=== PATIENT | male | born 1935 | race Caucasian/White ===

== ENCOUNTER → 2016-04-19 | Outpatient (CLI) | payer MEDICARE ==
[~2016-04-19] MED LIST: AMOX875T2 PO; ASPI1TAB PO; BISO5TAB5 PO; GLIM2TAB PO; IRBE75TA5 PO; KEFL500C7 PO; KETOROLAC 0.4% OS; LANTINJ4 SC; LEVA500T PO; METF1000; METF1000 PO; MULTCAP PO; NITR4TASL SL; OMEP20CA3 PO; PRAV40TA2 PO; PREDOPD OS; TYLE325T5 PO
--- NOTE | 2016-04-19 16:12 | REP ---
Clinical: Right upper extremity swelling . Technique: Brennan scale and color Doppler evaluation using linear high frequency transducer. Findings: Ultrasound examination of the right upper extremity deep venous structures including the jugular, axillary, subclavian, brachial, basilic, and cephalic veins demonstrates normal compressibility flow and wave patterns in response to respiration and augmentation. There is no evidence for deep venous thrombosis. Impression: No evidence for deep venous thrombosis. Signed by Maxwell Herrera MD 04/19/2016 04:03 P
== END ==
LOC: M RAD 13:44
PROVIDERS: ATTEND Nurse Practitioner Family
DX: M79.89 Other specified soft tissue disorders (principal); M25.531 Pain in right wrist

== ENCOUNTER → 2016-04-19 | Outpatient (REF) | payer MEDICARE | LOC: M SFHCPLAZ 12:16 | PROVIDERS: ATTEND Nurse Practitioner Family | DX: M25.531 Pain in right wrist (principal) ==

== ENCOUNTER → 2016-04-24 | Outpatient (CLI) | payer MEDICARE ==
--- NOTE | 2016-04-24 16:13 | REP ---
Clinical: Pain. Technique: AP, lateral, bilateral oblique views of the right wrist. Findings: Arthritic and degenerative changes primarily involving the first and second carpometacarpal joints with chronic subluxation at the first carpal metacarpal joint. Further degenerative changes include subchondral sclerosis and decreased radiocarpal joint space and to a lesser extent similar findings involving the carpometacarpal joints. Vascular calcifications noted. No acute fracture dislocation. Impression: Moderate to advanced degenerative changes dominant noted at the first carpal metacarpal joint Signed by Maxwell Herrera MD 04/24/2016 04:05 P
--- NOTE | 2016-04-24 16:16 | REP ---
Clinical: Pain. Technique: AP, lateral views of the right hand. Findings: Advanced osteoarthritic degenerative changes at the first and second carpometacarpal joints as well as increase sclerosis and decreased radiocarpal joint space appreciated. Moderate degenerative changes primarily involving the interphalangeal joints include marginal spurring subchondral sclerosis and decreased joint space. No acute fracture dislocation. 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
== END ==
LOC: M WUC 15:46
PROVIDERS: ATTEND Family Medicine
DX: M79.89 Other specified soft tissue disorders (principal)

== ENCOUNTER → 2016-05-01 | Outpatient (REF) | payer MEDICARE ==
[2016-05-01 14:47] LABS: BASO % 0.4 % (0.0-1.0); EOS # 0.1 K/mm3 (0.0-0.50); EOS % 1.5 % (0.0-3.0); LARGE UNSTAINED CELL # 0.1 K/mm3 (0.0-0.4); LARGE UNSTAINED CELL % 1.3 % (0.0-4.0); LYMPH % 14.4 % (24.0-44.0); MEAN CORPUSCULAR HEMOGLOBIN 26.1 pg (27.0-33.0); MEAN CORPUSCULAR HGB CONC 31.1 g/dl (32.0-36.5); MONO # 0.4 K/mm3 (0.0-0.8); MONO % 5.6 % (0.0-5.0); NEUTROPHILS # 5.1 K/mm3 (1.8-7.7); NEUTROPHILS % 76.8 % (36.0-66.0); PLATELET COUNT, AUTOMATED 269 k/mm3 (150-450); RED CELL DISTRIBUTION WIDTH 14.3 % (11.5-14.5); WHITE BLOOD COUNT 6.6 K/mm3 (4.0-10.0)
[2016-05-01 15:34] LABS: ERYTHROCYTE SEDIMENTATION RATE 37 mm/hr (0-20)
[2016-05-03 00:06] LABS: Lyme Disease IgG/IgM Antibodie <0.91 ISR (0.00-0.90); Lyme Disease IgM Ab Quantitati <0.80 index (0.00-0.79)
== END ==
LOC: M LABDRAW1 13:19
PROVIDERS: ATTEND Orthopaedic Surgery
DX: M25.531 Pain in right wrist (principal)

== ENCOUNTER → 2016-05-04 | Outpatient (CLI) | payer MEDICARE ==
[2016-05-04 18:41] LABS: MEAN CORPUSCULAR HEMOGLOBIN 27.5 pg (27.0-33.0); MEAN CORPUSCULAR HGB CONC 31.9 g/dl (32.0-36.5); MEAN CORPUSCULAR VOLUME 86.2 fl (80.0-96.0); RED CELL DISTRIBUTION WIDTH 14.5 % (11.5-14.5); WHITE BLOOD COUNT 5.3 K/mm3 (4.0-10.0)
[2016-05-04 19:08] LABS: ALBUMIN 3.6 GM/DL (3.2-5.2); ALBUMIN/GLOBULIN RATIO 1.38 (1.00-1.93); BILIRUBIN,TOTAL 0.5 MG/DL (0.2-1.0); CALCIUM LEVEL 7.5 MG/DL (8.8-10.2); CREATININE FOR GFR 1.56 MG/DL (0.70-1.30); GLOMERULAR FILTRATION RATE 46.1 (>42); POTASSIUM SERUM 5.1 MEQ/L (3.5-5.1); TOTAL PROTEIN 6.2 GM/DL (6.4-8.2)
== END ==
LOC: M WUC 09:37
PROVIDERS: ATTEND Family Medicine
DX: N18.3 Chronic kidney disease, stage 3 (moderate) (principal); E11.40 Type 2 diabetes mellitus with diabetic neuropathy, unspecified; E78.00 Pure hypercholesterolemia, unspecified

== ENCOUNTER → 2016-05-10 | Outpatient (REF) | payer MEDICARE ==
[2016-05-10 14:16] LABS: RETIC HEMOGLOBIN CONTENT CHr 28.3 PG (24-36); RETICULOCYTE % ADVIA2120 2.2 % (0.5-1.5)
[2016-05-10 14:43] LABS: FOLATE > 24.0 NG/ML (>5.4); VITAMIN B12 LEVEL 189 PG/ML (247-911)
[2016-05-10 15:19] LABS: FERRITIN 7 NG/ML (26-388); PERCENT SATURATION 9.7 % (19.7-37.4); TOTAL IRON BINDING CAPACITY 453 UG/DL (250-450)
== END ==
LOC: M SFHCPLAZ 11:36
PROVIDERS: ATTEND Family Medicine
DX: I12.9 Hypertensive chronic kidney disease with stage 1 through stage 4 chronic kidney disease, or unspecified chronic kidney disease (principal); N18.3 Chronic kidney disease, stage 3 (moderate); D63.1 Anemia in chronic kidney disease

== ENCOUNTER → 2016-05-16 | Outpatient (CLI) | payer MEDICARE ==
--- NOTE | 2016-05-16 15:05 | REP ---
URINARY TRACT SONOGRAPHY: HISTORY: Chronic kidney disease stage III. FINDINGS: Scanning at the level of the urinary bladder shows no abnormality. It is largely empty. Renal cortical echogenicity pattern is normal and contours are smooth on both sides. No hydronephrosis is seen. There are linear echogenic structures in the renal sinuses bilaterally suggesting vascular calcification. No calculus is seen. No mass lesion or cyst is observed. Right kidney measures 10.0 x 4.9 x 5.2 cm. Left renal dimensions are 8.9 x 4.3 x 4.7 cm. Left kidney is felt to be somewhat atrophic. IMPRESSION: No evidence of hydronephrosis on either side. Mild diffuse atrophy left kidney. Otherwise negative. Signed by Jamshid Francisco MD 05/16/2016 05:39 P
== END ==
LOC: M RAD 09:52
PROVIDERS: ATTEND Family Medicine
DX: N18.3 Chronic kidney disease, stage 3 (moderate) (principal)

== ENCOUNTER → 2016-05-21 | Outpatient (CLI) | payer MEDICARE ==
[2016-05-21 17:05] LABS: CALCIUM LEVEL 8.5 MG/DL (8.8-10.2); CREATININE FOR GFR 1.61 MG/DL (0.70-1.30); GLOMERULAR FILTRATION RATE 44.4 (>42); MAGNESIUM LEVEL 1.2 MG/DL (1.8-2.4)
== END ==
LOC: M WUC 11:53
PROVIDERS: ATTEND Family Medicine
DX: E83.42 Hypomagnesemia (principal)

== ENCOUNTER → 2016-05-24 | Outpatient (REF) | payer MEDICARE ==
[2016-05-24 16:06] LABS: MEAN CORPUSCULAR HEMOGLOBIN 26.4 pg (27.0-33.0); MEAN CORPUSCULAR HGB CONC 30.9 g/dl (32.0-36.5); MEAN CORPUSCULAR VOLUME 85.5 fl (80.0-96.0); RED CELL DISTRIBUTION WIDTH 14.3 % (11.5-14.5); WHITE BLOOD COUNT 7.4 K/mm3 (4.0-10.0)
== END ==
LOC: M SFHCPLAZ 11:21
PROVIDERS: ATTEND Family Medicine
DX: E53.8 Deficiency of other specified B group vitamins (principal)

== ENCOUNTER → 2016-07-01 | Outpatient (CLI) | payer MEDICARE ==
[~2016-07-01] MED LIST changes: +FERR325T3 PO
--- NOTE | 2016-07-01 17:11 | REP ---
Chest two views HISTORY: Dyspnea Comparison: 04/03/2015 The lungs are clear. The heart is normal in size. The pulmonary vasculature is normal in appearance. The bony structure is intact. IMPRESSION: No acute disease. Signed by Adrian Velez MD 07/01/2016 05:02 P
[2016-07-01 20:07] LABS: BASO % 0.7 % (0.0-1.0); EOS # 0.2 K/mm3 (0.0-0.50); EOS % 3.3 % (0.0-3.0); LARGE UNSTAINED CELL # 0.1 K/mm3 (0.0-0.4); LARGE UNSTAINED CELL % 2.2 % (0.0-4.0); LYMPH # 0.9 K/mm3 (1.5-4.5); LYMPH % 16.5 % (24.0-44.0); MEAN CORPUSCULAR HEMOGLOBIN 27.8 pg (27.0-33.0); MEAN CORPUSCULAR HGB CONC 32.2 g/dl (32.0-36.5); MEAN CORPUSCULAR VOLUME 86.5 fl (80.0-96.0); MONO # 0.3 K/mm3 (0.0-0.8); MONO % 5.9 % (0.0-5.0); NEUTROPHILS % 71.4 % (36.0-66.0); PLATELET COUNT, AUTOMATED 260 k/mm3 (150-450); RED CELL DISTRIBUTION WIDTH 14.4 % (11.5-14.5); WHITE BLOOD COUNT 5.6 K/mm3 (4.0-10.0)
[2016-07-01 20:25] LABS: ALBUMIN 3.5 GM/DL (3.2-5.2); ALBUMIN/GLOBULIN RATIO 1.21 (1.00-1.93); ALKALINE PHOSPHATASE 70 U/L (45-117); ALT/SGPT 24 U/L (12-78); ANION GAP 9 MEQ/L (8-16); AST/SGOT 21 U/L (15-37); BILIRUBIN,TOTAL 0.3 MG/DL (0.2-1.0); BLOOD UREA NITROGEN 23 MG/DL (7-18); CALCIUM LEVEL 8.3 MG/DL (8.8-10.2); CARBON DIOXIDE LEVEL 24 MEQ/L (21-32); CHLORIDE LEVEL 107 MEQ/L (98-107); CREATININE FOR GFR 1.42 MG/DL (0.70-1.30); GLOMERULAR FILTRATION RATE 51.3 (>42); GLUCOSE, FASTING 147 MG/DL (83-110); POTASSIUM SERUM 4.7 MEQ/L (3.5-5.1); SODIUM LEVEL 140 MEQ/L (136-145); TOTAL PROTEIN 6.4 GM/DL (6.4-8.2)
[2016-07-01 21:03] LABS: ERYTHROCYTE SEDIMENTATION RATE 31 mm/hr (0-20)
[2016-07-04 00:07] LABS: Lyme Disease IgG/IgM Antibodie <0.91 ISR (0.00-0.90); Lyme Disease IgM Ab Quantitati <0.80 index (0.00-0.79)
== END ==
LOC: M WUC 16:06
PROVIDERS: ATTEND Internal Medicine Rheumatology
DX: M35.9 Systemic involvement of connective tissue, unspecified (principal); Z79.899 Other long term (current) drug therapy; E55.9 Vitamin D deficiency, unspecified; D47.2 Monoclonal gammopathy

== ENCOUNTER → 2016-07-03 | Outpatient (CLI) | payer MEDICARE ==
[~2016-07-03] VITALS: Ht 177.8 cm; Wt 86.2 kg
[~2016-07-03] MED LIST changes: +LIDOCAINE 2% INJ 100 MG/5 ML SDV (FOR ANES.) As Ordered ONE; +NS 1,000 ML IV ONE; +PROPOFOL 500 MG/50 ML VIAL As Ordered ONE
--- NOTE | 2016-07-03 09:45 | ROOR ---
Patient Name: Nimesh Marmolejo Procedure Date: 07/03/2016 9:16 AM Date of : 1935 Age: 80 Room: [facility] Gender: Male Note Status: Finalized Procedure: Upper GI endoscopy + SBB Indications: Iron deficiency anemia Providers: Josesito Larose MD Referring MD: Neil Alvarez MD Requesting Provider: Medicines: Monitored Anesthesia Care Complications: No immediate complications. Procedure: Pre-Anesthesia Assessment: - The heart rate, respiratory rate, oxygen saturations, blood pressure, adequacy of pulmonary ventilation, and response to care were monitored throughout the procedure. The Endoscope was introduced through the mouth, and advanced to the second part of duodenum. The upper GI endoscopy was accomplished without difficulty. The patient tolerated the procedure well. Findings: The Z-line was regular and was found 40 cm from the incisors. No other significant abnormalities were identified in a careful examination of the stomach. The exam of the duodenum was otherwise normal. Biopsies for histology were taken with a cold forceps in the first portion of the duodenum for evaluation of celiac disease. The exam was otherwise without abnormality. Impression: - Z-line regular, 40 cm from the incisors. - The examination was otherwise normal. - Biopsies were taken with a cold forceps for evaluation of celiac disease. - The examination was otherwise normal. Recommendation: - Patient has a contact number available for emergencies. The signs and symptoms of potential delayed complications were discussed with the patient. Return to normal activities tomorrow. Written discharge instructions were provided to the patient. - High fiber diet. - Discharge patient to home. - Continue present medications. - Await pathology results. - Telephone GI clinic for pathology results in 1 week. - Check Portal Online for Path Results.([email or web address]) - Return to referring physician. - The findings and recommendations were discussed with the patient's family. Josesito Larose MD Josesito Larose MD 07/03/2016 9:44:52 AM This report has been signed electronically. Number of Addenda: 0 Note Initiated On: 07/03/2016 9:16 AM Estimated Blood Loss: Estimated blood loss: none.
--- NOTE | 2016-07-03 09:48 | ROOR ---
Patient Name: Nimesh Marmolejo Procedure Date: 07/03/2016 9:17 AM Date of : 1935 Age: 80 Room: [facility] Gender: Male Note Status: Finalized Procedure: Colonoscopy to Cecum Indications: Iron deficiency anemia Providers: Josesito Larose MD Referring MD: Neil Alvarez MD Requesting Provider: Medicines: Monitored Anesthesia Care Complications: No immediate complications. Procedure: Pre-Anesthesia Assessment: - The heart rate, respiratory rate, oxygen saturations, blood pressure, adequacy of pulmonary ventilation, and response to care were monitored throughout the procedure. The Colonoscope was introduced through the anus and advanced to the cecum, identified by appendiceal orifice and ileocecal valve. The colonoscopy was performed without difficulty. The patient tolerated the procedure well. The quality of the bowel preparation was excellent. Findings: The perianal and digital rectal examinations were normal. Non-bleeding internal hemorrhoids were found during retroflexion. The hemorrhoids were small and Grade I (internal hemorrhoids that do not prolapse). Multiple small and large-mouthed diverticula were found in the recto-sigmoid colon, sigmoid colon and descending colon. The exam was otherwise without abnormality on direct and retroflexion views. Impression: - Non-bleeding internal hemorrhoids. - Diverticulosis in the recto-sigmoid colon, in the sigmoid colon and in the descending colon. - The examination was otherwise normal on direct and retroflexion views. - No specimens collected. - The exam was otherwise normal to the cecum. Recommendation: - Patient has a contact number available for emergencies. The signs and symptoms of potential delayed complications were discussed with the patient. Return to normal activities tomorrow. Written discharge instructions were provided to the patient. - High fiber diet. - Discharge patient to home. - Continue present medications. - Repeat colonoscopy for symptoms only. - Return to referring physician. - The findings and recommendations were discussed with the patient's family. Josesito Larose MD Josesito Larose MD 07/03/2016 9:47:48 AM This report has been signed electronically. Number of Addenda: 0 Note Initiated On: 07/03/2016 9:17 AM Estimated Blood Loss: Estimated blood loss: none.
[2016-07-03 10:20] VITALS: BP 121/66
== END | disposition home or self-care (01) ==
LOC: M OPP 08:03
PROVIDERS: ATTEND Internal Medicine Gastroenterology
DX: D50.9 Iron deficiency anemia, unspecified (principal); K64.0 First degree hemorrhoids; K57.30 Diverticulosis of large intestine without perforation or abscess without bleeding; I25.10 Atherosclerotic heart disease of native coronary artery without angina pectoris; I25.2 Old myocardial infarction; I10 Essential (primary) hypertension; E78.5 Hyperlipidemia, unspecified; E11.9 Type 2 diabetes mellitus without complications; M19.90 Unspecified osteoarthritis, unspecified site; Z95.1 Presence of aortocoronary bypass graft; Z88.5 Allergy status to narcotic agent; Z88.8 Allergy status to other drugs, medicaments and biological substances; Z79.82 Long term (current) use of aspirin; Z79.84 Long term (current) use of oral hypoglycemic drugs; Z79.4 Long term (current) use of insulin

== ENCOUNTER → 2016-07-10 | Outpatient (REF) | payer MEDICARE ==
[~2016-07-10] MED LIST changes: -LIDOCAINE 2% INJ 100 MG/5 ML SDV (FOR ANES.) As Ordered ONE; -NS 1,000 ML IV ONE; -PROPOFOL 500 MG/50 ML VIAL As Ordered ONE
== END ==
LOC: M SFHCPLAZ 11:58
PROVIDERS: ATTEND Dermatology
DX: L57.0 Actinic keratosis (principal)

== ENCOUNTER → 2016-07-11 | Outpatient (CLI) | payer MEDICARE ==
[2016-07-11 14:40] LABS: MEAN CORPUSCULAR HEMOGLOBIN 27.4 pg (27.0-33.0); MEAN CORPUSCULAR HGB CONC 32.5 g/dl (32.0-36.5); MEAN CORPUSCULAR VOLUME 84.6 fl (80.0-96.0); RED CELL DISTRIBUTION WIDTH 14.6 % (11.5-14.5); RETIC HEMOGLOBIN CONTENT CHr 29.1 PG (24-36); RETICULOCYTE % ADVIA2120 2.6 % (0.5-1.5); WHITE BLOOD COUNT 5.5 K/mm3 (4.0-10.0)
[2016-07-11 15:10] LABS: ANION GAP 8 MEQ/L (8-16); BLOOD UREA NITROGEN 29 MG/DL (7-18); CALCIUM LEVEL 8.2 MG/DL (8.8-10.2); CARBON DIOXIDE LEVEL 26 MEQ/L (21-32); CHLORIDE LEVEL 106 MEQ/L (98-107); CREATININE FOR GFR 1.64 MG/DL (0.70-1.30); FERRITIN 9 NG/ML (26-388); GLOMERULAR FILTRATION RATE 43.5 (>42); GLUCOSE, FASTING 139 MG/DL (83-110); MAGNESIUM LEVEL 1.2 MG/DL (1.8-2.4); PERCENT SATURATION 18.8 % (19.7-37.4); SODIUM LEVEL 140 MEQ/L (136-145); TOTAL IRON BINDING CAPACITY 393 UG/DL (250-450); TOTAL PROTEIN 6.3 GM/DL (6.4-8.2)
[2016-07-11 15:14] LABS: VITAMIN B12 LEVEL 345 PG/ML (247-911)
[2016-07-11 15:16] LABS: POTASSIUM SERUM 5.3 MEQ/L (3.5-5.1)
[2016-07-13 00:07] LABS: FREE KAPPA LIGHT CHAINS SERUM 36.1 mg/L (3.30-19.40); FREE LAMBDA LIGHT CHAINS SERUM 23.77 mg/L (5.71-26.30); KAPPA/LAMBDA RATIO SERUM 1.52 (0.26-1.65)
[2016-07-15 13:31] LABS: ALBUMIN 3.65 GM/DL (3.29-5.55); GAMMA GLOBULIN % 10.4 % (11.1-18.8)
== END ==
LOC: M WUC 13:19
PROVIDERS: ATTEND Family Medicine
DX: D50.9 Iron deficiency anemia, unspecified (principal)

== ENCOUNTER → 2016-07-31 | Outpatient (CLI) | payer MEDICARE ==
--- NOTE | 2016-07-31 20:03 | REP ---
Left hip two views: I suspect a fracture of the left ischium, nondisplaced. This should be correlated with clinical point tenderness. There are no comparison studies. There is no fracture of the left hip or acetabulum. There is mild left hip joint space narrowing. There is surgical clips in the soft tissues of the thigh medially. Impression: Suspect a nondisplaced fracture of the left ischium. No left hip fracture. Signed by Reggie Downing MD 07/31/2016 07:55 P
== END ==
LOC: M WUC 18:37
PROVIDERS: ATTEND Physician Assistant
DX: S70.02XA Contusion of left hip, initial encounter (principal); Y92.9 Unspecified place or not applicable; Y93.9 Activity, unspecified; Y99.8 Other external cause status

== ENCOUNTER → 2016-08-05 | Outpatient (REF) | payer MEDICARE ==
[2016-08-05 14:19] LABS: REASON FOR REVIEW COMPREHENSIVE REVIEW
== END ==
LOC: M LAB REF 13:01
PROVIDERS: ATTEND Internal Medicine Medical Oncology
DX: D64.9 Anemia, unspecified (principal)

== ENCOUNTER → 2016-08-13 | Outpatient (REF) | payer MEDICARE ==
[2016-08-13 14:04] LABS: MEAN CORPUSCULAR HEMOGLOBIN 27.7 pg (27.0-33.0); MEAN CORPUSCULAR HGB CONC 31.8 g/dl (32.0-36.5); MEAN CORPUSCULAR VOLUME 87.2 fl (80.0-96.0); RED CELL DISTRIBUTION WIDTH 14.6 % (11.5-14.5); WHITE BLOOD COUNT 6.4 K/mm3 (4.0-10.0)
[2016-08-13 14:18] LABS: CALCIUM LEVEL 8.9 MG/DL (8.8-10.2); CREATININE FOR GFR 1.47 MG/DL (0.70-1.30); GLOMERULAR FILTRATION RATE 49.3 (>42)
[2016-08-13 14:37] LABS: POTASSIUM SERUM 5.2 MEQ/L (3.5-5.1)
== END ==
LOC: M LABWUC 13:27
PROVIDERS: ATTEND Family Medicine
DX: E11.40 Type 2 diabetes mellitus with diabetic neuropathy, unspecified (principal)

== ENCOUNTER → 2016-09-05 | Outpatient (REF) | payer MEDICARE ==
[~2016-09-05] MED LIST changes: +KEFL500C17 PO; -KEFL500C7 PO; +LEVA1TAB2 PO; -LEVA500T PO; -METF1000; -METF1000 PO; +METF10004; +METF10004 PO
[2016-09-05 13:11] LABS: PERCENT SATURATION 21.8 % (19.7-37.4)
== END ==
LOC: M LAB REF 12:21
PROVIDERS: ATTEND Internal Medicine Medical Oncology
DX: D64.9 Anemia, unspecified (principal)

== ENCOUNTER → 2016-09-23 | Outpatient (CLI) | payer MEDICARE ==
[2016-09-23 13:08] LABS: MEAN CORPUSCULAR HGB CONC 32.3 g/dl (32.0-36.5); MEAN CORPUSCULAR VOLUME 86.8 fl (80.0-96.0); RED CELL DISTRIBUTION WIDTH 14.7 % (11.5-14.5); RETIC HEMOGLOBIN CONTENT CHr 30.1 PG (24-36); RETICULOCYTE % 2.3 % (0.5-1.5); WHITE BLOOD COUNT 4.7 K/mm3 (4.0-10.0)
[2016-09-23 13:31] LABS: CALCIUM LEVEL 8.7 MG/DL (8.8-10.2); CREATININE FOR GFR 1.4 MG/DL (0.70-1.30); PERCENT SATURATION 15.7 % (19.7-37.4); POTASSIUM SERUM 4.9 MEQ/L (3.5-5.1)
== END ==
LOC: M WUC 09:18
PROVIDERS: ATTEND Family Medicine
DX: D50.9 Iron deficiency anemia, unspecified (principal); N18.3 Chronic kidney disease, stage 3 (moderate)

== ENCOUNTER → 2016-10-01 | Outpatient (CLI) | payer MEDICARE ==
--- NOTE | 2016-10-01 14:25 | REP ---
Right lower extremity vein duplex ultrasound: The deep veins demonstrate normal compression, normal Doppler color flow and normal Doppler waveforms with respiration augmentation at multiple levels from the popliteal vein to the common femoral vein. Impression: There is no right lower extremity deep vein thrombus. A moderately enlarged right inguinal lymph node is identified measuring up to 0.9 cm short axis. Signed by Reggie Downing MD 10/01/2016 02:16 P
== END ==
LOC: M RAD 13:34
PROVIDERS: ATTEND Family Medicine
DX: M79.89 Other specified soft tissue disorders (principal); R59.0 Localized enlarged lymph nodes

== ENCOUNTER → 2016-10-17 | Outpatient (REF) | payer MEDICARE ==
[2016-10-17 17:42] LABS: PERCENT SATURATION 17.1 % (19.7-50.0)
== END ==
LOC: M LAB REF 16:03
PROVIDERS: ATTEND Internal Medicine Medical Oncology
DX: D64.9 Anemia, unspecified (principal)

== ENCOUNTER → 2016-11-21 | Outpatient (CLI) | payer MEDICARE ==
[2016-11-21 19:11] LABS: PERCENT SATURATION 30.3 % (19.7-50.0)
[2016-11-21 20:15] LABS: BASO % 0.6 % (0.0-1.0); EOS # 0.2 K/mm3 (0.0-0.50); EOS % 3.1 % (0.0-3.0); LARGE UNSTAINED CELL # 0.1 K/mm3 (0.0-0.4); LARGE UNSTAINED CELL % 2.1 % (0.0-4.0); LYMPH # 0.9 K/mm3 (1.5-4.5); LYMPH % 16.5 % (24.0-44.0); MEAN CORPUSCULAR HEMOGLOBIN 28.2 pg (27.0-33.0); MEAN CORPUSCULAR HGB CONC 32.2 g/dl (32.0-36.5); MEAN CORPUSCULAR VOLUME 87.6 fl (80.0-96.0); MONO # 0.3 K/mm3 (0.0-0.8); MONO % 5.4 % (0.0-5.0); NEUTROPHILS % 72.3 % (36.0-66.0); PLATELET COUNT, AUTOMATED 261 k/mm3 (150-450); RED CELL DISTRIBUTION WIDTH 14.1 % (11.5-14.5); RETIC HEMOGLOBIN CONTENT CHr 28.8 PG (24-36); RETICULOCYTE ABSOLUTE ADVIA212 80 x10(9)/L (17-77); WHITE BLOOD COUNT 5.6 K/mm3 (4.0-10.0)
[2016-11-21 21:16] LABS: ERYTHROCYTE SEDIMENTATION RATE 20 mm/hr (0-20)
== END ==
LOC: M WUC 10:41
PROVIDERS: ATTEND Internal Medicine Medical Oncology
DX: D64.9 Anemia, unspecified (principal)

== ENCOUNTER → 2017-03-04 | Outpatient (CLI) | payer MEDICARE ==
[2017-03-04 11:55] LABS: BASO % 0.5 % (0.0-1.0); EOS # 0.2 10^3/uL (0.0-0.50); EOS % 2.5 % (0.0-3.0); HEMATOCRIT 35.6 % (42.0-52.0); HEMOGLOBIN 11.1 g/dl (14.0-18.0); IMMATURE GRANULOCYTE % 0.3 % (0-0); LYMPH # 0.8 10^3/uL (1.5-4.5); MEAN CORPUSCULAR HEMOGLOBIN 27.4 pg (27.0-33.0); MEAN CORPUSCULAR HGB CONC 31.2 g/dl (32.0-36.5); MEAN CORPUSCULAR VOLUME 87.9 fl (80.0-96.0); MONO # 0.5 10^3/uL (0.0-0.8); MONO % 5.8 % (0.0-5.0); NEUTROPHILS # 7.2 10^3/uL (1.8-7.7); NEUTROPHILS % 81.9 % (36.0-66.0); PLATELET COUNT, AUTOMATED 306 10^3/uL (150-450); RED BLOOD COUNT 4.05 10^6/uL (4.30-6.10); RED CELL DISTRIBUTION WIDTH 14.9 % (11.5-14.5); WHITE BLOOD COUNT 8.7 10^3/uL (4.0-10.0)
[2017-03-04 12:08] LABS: FERRITIN 19 NG/ML (26-388); IRON (FE) 85 UG/DL (65-175); TOTAL IRON BINDING CAPACITY 327 UG/DL (250-450)
[2017-03-05 10:19] LABS: ERYTHROPOIETIN 12.1 mIU/mL (2.6-18.5)
== END ==
LOC: M WUC 09:14
DX: D64.9 Anemia, unspecified (principal)
CPT/HCPCS: 83550

== ENCOUNTER → 2017-04-26 | Outpatient (CLI) | payer MEDICARE ==
[2017-04-26 10:58] LABS: HEMATOCRIT 34.1 % (42.0-52.0); HEMOGLOBIN 10.7 g/dl (14.0-18.0); MEAN CORPUSCULAR HEMOGLOBIN 27.6 pg (27.0-33.0); MEAN CORPUSCULAR HGB CONC 31.4 g/dl (32.0-36.5); MEAN CORPUSCULAR VOLUME 88.1 fl (80.0-96.0); PLATELET COUNT, AUTOMATED 246 10^3/uL (150-450); RED BLOOD COUNT 3.87 10^6/uL (4.30-6.10); RED CELL DISTRIBUTION WIDTH 14.7 % (11.5-14.5); RETIC HEMOGLOBIN EQUIVALENT 31.7 pg (24-36); RETICULOCYTE # 59.2 10^9/L (17-77); RETICULOCYTE % 1.5 % (0.5-1.5); WHITE BLOOD COUNT 5.3 10^3/uL (4.0-10.0)
[2017-04-26 11:16] LABS: ESTIMATED AVERAGE GLUCOSE 148 MG/DL (60-110); HEMOGLOBIN A1c 6.8 %
[2017-04-26 11:18] LABS: ALBUMIN 3.9 GM/DL (3.2-5.2); ALBUMIN/GLOBULIN RATIO 1.56 (1.00-1.93); ALKALINE PHOSPHATASE 62 U/L (45-117); ALT/SGPT 22 U/L (12-78); ANION GAP 7 MEQ/L (8-16); AST/SGOT 20 U/L (7-37); BILIRUBIN,TOTAL 0.5 MG/DL (0.2-1.0); BLOOD UREA NITROGEN 34 MG/DL (7-18); CALCIUM LEVEL 8.6 MG/DL (8.8-10.2); CARBON DIOXIDE LEVEL 24 MEQ/L (21-32); CHLORIDE LEVEL 111 MEQ/L (98-107); CREATININE FOR GFR 1.84 MG/DL (0.70-1.30); FERRITIN 16 NG/ML (26-388); GLUCOSE, FASTING 80 MG/DL (70-100); IRON (FE) 59 UG/DL (65-175); MAGNESIUM LEVEL 1.7 MG/DL (1.8-2.4); PERCENT SATURATION 16.3 % (19.7-50.0); SODIUM LEVEL 142 MEQ/L (136-145); TOTAL IRON BINDING CAPACITY 361 UG/DL (250-450); TOTAL PROTEIN 6.4 GM/DL (6.4-8.2)
[2017-04-26 11:19] LABS: POTASSIUM SERUM 5.9 MEQ/L (3.5-5.1)
== END ==
LOC: M WUC 08:45
DX: I25.10 Atherosclerotic heart disease of native coronary artery without angina pectoris (principal); E83.42 Hypomagnesemia; D50.9 Iron deficiency anemia, unspecified; E11.40 Type 2 diabetes mellitus with diabetic neuropathy, unspecified
CPT/HCPCS: 83550

== ENCOUNTER → 2017-07-26 | Outpatient (CLI) | payer MEDICARE ==
[2017-07-26 10:18] LABS: BASO # 0.1 10^3/uL (0.0-0.2); BASO % 0.9 % (0.0-1.0); EOS # 0.2 10^3/uL (0.0-0.50); EOS % 4.1 % (0.0-3.0); HEMATOCRIT 36.4 % (42.0-52.0); HEMOGLOBIN 11.3 g/dl (13.5-17.5); IMMATURE GRANULOCYTE % 0.2 % (0-3.0); LYMPH # 0.9 10^3/uL (1.5-4.5); LYMPH % 15.1 % (24.0-44.0); MEAN CORPUSCULAR HEMOGLOBIN 27.7 pg (27.0-33.0); MEAN CORPUSCULAR VOLUME 89.2 fl (80.0-96.0); MONO # 0.5 10^3/uL (0.0-0.8); MONO % 8.6 % (0.0-5.0); NEUTROPHILS # 4.2 10^3/uL (1.8-7.7); NEUTROPHILS % 71.1 % (36.0-66.0); PLATELET COUNT, AUTOMATED 211 10^3/uL (150-450); RED BLOOD COUNT 4.08 10^6/uL (4.30-6.10); RED CELL DISTRIBUTION WIDTH 14.5 % (11.5-14.5); RETIC HEMOGLOBIN EQUIVALENT 32.6 pg (24-36); RETICULOCYTE # 53.4 10^9/L (17-77); RETICULOCYTE % 1.3 % (0.5-1.5); WHITE BLOOD COUNT 5.8 10^3/uL (4.0-10.0)
[2017-07-26 10:32] LABS: ESTIMATED AVERAGE GLUCOSE 186 MG/DL (60-110); HEMOGLOBIN A1c 8.1 %
[2017-07-26 10:54] LABS: ANION GAP 8 MEQ/L (8-16); BLOOD UREA NITROGEN 44 MG/DL (7-18); CALCIUM LEVEL 8.7 MG/DL (8.8-10.2); CARBON DIOXIDE LEVEL 23 MEQ/L (21-32); CHLORIDE LEVEL 111 MEQ/L (98-107); CREATININE FOR GFR 1.62 MG/DL (0.70-1.30); FERRITIN 25 NG/ML (26-388); GLUCOSE, FASTING 123 MG/DL (70-100); IRON (FE) 95 UG/DL (65-175); PERCENT SATURATION 27.6 % (19.7-50.0); SODIUM LEVEL 142 MEQ/L (136-145); TOTAL IRON BINDING CAPACITY 344 UG/DL (250-450)
[2017-07-26 10:57] LABS: POTASSIUM SERUM 5.5 MEQ/L (3.5-5.1)
== END ==
LOC: M LAB 09:28
DX: E11.40 Type 2 diabetes mellitus with diabetic neuropathy, unspecified (principal); E11.22 Type 2 diabetes mellitus with diabetic chronic kidney disease; N18.3 Chronic kidney disease, stage 3 (moderate)
CPT/HCPCS: 83550

== ENCOUNTER → 2017-08-27 | Outpatient (CLI) | payer MEDICARE | LOC: M RAD 16:14 | DX: K57.30 Diverticulosis of large intestine without perforation or abscess without bleeding (principal); R35.0 Frequency of micturition; R10.9 Unspecified abdominal pain; R31.29 Other microscopic hematuria | CPT/HCPCS: 74176 ==

== ENCOUNTER → 2017-08-27 | Outpatient (REF) | payer MEDICARE ==
[2017-08-27 20:37] LABS: APPEARANCE, URINE MANUAL CLEAR (CLEAR); BILIRUBIN, URINE MANUAL NEGATIVE (NEGATIVE); BLOOD URINE MANUAL NEGATIVE (NEGATIVE); COLOR, URINE MANUAL YELLOW (YELLOW); GLUCOSE, URINE (UA) MANUAL NEGATIVE (NEGATIVE); KETONE, URINE MANUAL NEGATIVE (NEGATIVE); LEUKOCYTE ESTERASE, URINE MAN NEGATIVE (NEGATIVE); MICROSCOPIC INDICATED? MAN YES (NO); NITRITE, URINE MANUAL NEGATIVE (NEGATIVE); PROTEIN, URINE MANUAL TRACE mg/dL (NEGATIVE); UROBILINOGEN, URINE MANUAL NORMAL (NORMAL)
[2017-08-27 20:50] LABS: AMORPHOUS SEDIMENT, URINE SMALL AMOUNT (NEGATIVE); BACTERIA, URINE SMALL AMOUNT; MUCUS, URINE SMALL AMOUNT (NEGATIVE); RBC, URINE NONE SEEN /hpf (0-3); SQUAMOUS EPITHELIAL CELL URINE SMALL AMOUNT /hpf (SMALL AMT)
[2017-08-27 20:51] LABS: GRANULAR CAST, URINE 0-1 /lpf; HYALINE CAST, URINE NONE SEEN /lpf (0-1); MICROSCOPIC EXAM PERFORMED
== END ==
LOC: M SFHCADAM 15:46
DX: R35.0 Frequency of micturition (principal)
CPT/HCPCS: 81000

== ENCOUNTER → 2017-09-02 | Outpatient (CLI) | payer MEDICARE ==
[2017-09-02 12:12] LABS: BASO # 0.1 10^3/uL (0.0-0.2); BASO % 0.6 % (0.0-1.0); EOS # 0.2 10^3/uL (0.0-0.50); EOS % 2.3 % (0.0-3.0); HEMATOCRIT 36.4 % (42.0-52.0); HEMOGLOBIN 11.6 g/dl (13.5-17.5); IMMATURE GRANULOCYTE % 0.4 % (0-3.0); LYMPH # 0.9 10^3/uL (1.5-4.5); LYMPH % 10.4 % (24.0-44.0); MEAN CORPUSCULAR HEMOGLOBIN 27.9 pg (27.0-33.0); MEAN CORPUSCULAR HGB CONC 31.9 g/dl (32.0-36.5); MEAN CORPUSCULAR VOLUME 87.5 fl (80.0-96.0); MONO # 0.6 10^3/uL (0.0-0.8); MONO % 7.5 % (0.0-5.0); NEUTROPHILS # 6.4 10^3/uL (1.8-7.7); NEUTROPHILS % 78.8 % (36.0-66.0); PLATELET COUNT, AUTOMATED 279 10^3/uL (150-450); RED BLOOD COUNT 4.16 10^6/uL (4.30-6.10); RED CELL DISTRIBUTION WIDTH 14.6 % (11.5-14.5); RETIC HEMOGLOBIN EQUIVALENT 31.4 pg (24-36); RETICULOCYTE # 56.2 10^9/L (17-77); RETICULOCYTE % 1.4 % (0.5-1.5); WHITE BLOOD COUNT 8.2 10^3/uL (4.0-10.0)
[2017-09-02 12:33] LABS: FERRITIN 46 NG/ML (26-388); IRON (FE) 63 UG/DL (65-175); PERCENT SATURATION 18.6 % (19.7-50.0); TOTAL IRON BINDING CAPACITY 338 UG/DL (250-450)
[2017-09-03 09:05] LABS: ERYTHROPOIETIN 13.8 mIU/mL (2.6-18.5)
== END ==
LOC: M WUC 09:03
DX: D64.9 Anemia, unspecified (principal); M51.36 Other intervertebral disc degeneration, lumbar region
CPT/HCPCS: 83550

== ENCOUNTER → 2017-09-02 | Outpatient (CLI) | payer MEDICARE | LOC: M WUC 09:00 | DX: M51.36 Other intervertebral disc degeneration, lumbar region (principal) ==

== ENCOUNTER 2017-09-10 09:47 | Emergency (ER) | payer MEDICARE ==
[2017-09-10] MEDS ORDERED: traMADol 50 MG TAB PO (10:45)
[2017-09-10] MEDS: traMADol 50 MG TAB PO (10:49)
[2017-09-10 11:06] LABS: AMORPHOUS SEDIMENT RFX LARGE (NEGATIVE); KETONE, URINE AUTO RFX NEGATIVE (NEGATIVE); LEUKOCYTE ESTERASE UR AUTO RFX NEGATIVE (NEGATIVE); MUCUS, URINE RFX SMALL (NEGATIVE); NITRITE, URINE AUTO RFX NEGATIVE (NEGATIVE); RBC, URINE AUTO RFX 0 /HPF (0-3); SPECIFIC GRAVITY UR AUTO RFX 1.019 (1.002-1.035); SQUAM EPITHELIAL CELL UR AURFX 0 /HPF (0-6); WBC, URINE AUTO RFX 1 /HPF (0-3)
== END 2017-09-10 12:48 | disposition home or self-care (01) ==
LOC: M ED 09:47
DX: M54.5 Low back pain (principal); E11.9 Type 2 diabetes mellitus without complications; I10 Essential (primary) hypertension; E78.5 Hyperlipidemia, unspecified; I25.2 Old myocardial infarction; Z87.442 Personal history of urinary calculi; Z95.1 Presence of aortocoronary bypass graft; Z88.8 Allergy status to other drugs, medicaments and biological substances; Z88.5 Allergy status to narcotic agent; Z79.899 Other long term (current) drug therapy; Z79.4 Long term (current) use of insulin; Z79.82 Long term (current) use of aspirin
CPT/HCPCS: 71046

== ENCOUNTER 2017-09-13 06:03 | Emergency (ER) | payer MEDICARE ==
[2017-09-13] MEDS: ONDANSETRON 4MG/2ML VIAL (J2405) IV (07:43)
[2017-09-13] MEDS: NS 1,000 ML IV (07:43)
[2017-09-13] MEDS: MORPHINE 4 MG/ML 1ML VIAL/SYRINGE (J2270) IV (07:43)
[2017-09-13 07:46] LABS: BASO % 0.2 % (0.0-1.0); EOS % 0.4 % (0.0-3.0); HEMATOCRIT 35.5 % (42.0-52.0); HEMOGLOBIN 11.6 g/dl (13.5-17.5); IMMATURE GRANULOCYTE % 0.6 % (0-3.0); LYMPH # 0.4 10^3/uL (1.5-4.5); MEAN CORPUSCULAR HEMOGLOBIN 28.1 pg (27.0-33.0); MEAN CORPUSCULAR HGB CONC 32.7 g/dl (32.0-36.5); MONO # 0.9 10^3/uL (0.0-0.8); MONO % 8.9 % (0.0-5.0); NEUTROPHILS # 8.8 10^3/uL (1.8-7.7); NEUTROPHILS % 85.9 % (36.0-66.0); PLATELET COUNT, AUTOMATED 272 10^3/uL (150-450); RED BLOOD COUNT 4.13 10^6/uL (4.30-6.10); WHITE BLOOD COUNT 10.2 10^3/uL (4.0-10.0)
[2017-09-13 07:52] LABS: AMORPHOUS SEDIMENT RFX MODERATE (NEGATIVE); KETONE, URINE AUTO RFX NEGATIVE (NEGATIVE); LEUKOCYTE ESTERASE UR AUTO RFX NEGATIVE (NEGATIVE); MUCUS, URINE RFX SMALL (NEGATIVE); NITRITE, URINE AUTO RFX NEGATIVE (NEGATIVE); RBC, URINE AUTO RFX 6 /HPF (0-3); SPECIFIC GRAVITY UR AUTO RFX 1.012 (1.002-1.035); SQUAM EPITHELIAL CELL UR AURFX 0 /HPF (0-6); WBC, URINE AUTO RFX 3 /HPF (0-3)
[2017-09-13 08:15] LABS: LACTIC ACID SEPSIS PROTOCOL 1.7 MMOL/L (0.4-2.0)
[2017-09-13 08:52] LABS: ALBUMIN 2.6 GM/DL (3.2-5.2); ALBUMIN/GLOBULIN RATIO 0.72 (1.00-1.93); ALKALINE PHOSPHATASE 152 U/L (45-117); ALT/SGPT 90 U/L (12-78); ANION GAP 11 MEQ/L (8-16); AST/SGOT 88 U/L (7-37); BILIRUBIN,DIRECT 0.2 MG/DL (0.0-0.2); BILIRUBIN,TOTAL 0.5 MG/DL (0.2-1.0); BLOOD UREA NITROGEN 30 MG/DL (7-18); CALCIUM LEVEL 8.2 MG/DL (8.8-10.2); CARBON DIOXIDE LEVEL 23 MEQ/L (21-32); CHLORIDE LEVEL 101 MEQ/L (98-107); CREATININE FOR GFR 1.67 MG/DL (0.70-1.30); GLOMERULAR FILTRATION RATE 42.4 (>35); GLUCOSE, FASTING 190 MG/DL (70-100); LIPASE 96 U/L (73-393); POTASSIUM SERUM 4.4 MEQ/L (3.5-5.1); SODIUM LEVEL 135 MEQ/L (136-145); TOTAL PROTEIN 6.2 GM/DL (6.4-8.2)
[2017-09-13] MEDS: metroNIDAZOLE (FLAGYL) 500 MG TAB PO (10:00)
[2017-09-13] MEDS: CIPROFLOXACIN 500 MG TAB PO (10:06)
== END 2017-09-13 10:30 | disposition home or self-care (01) ==
LOC: M ED 06:03
DX: K57.32 Diverticulitis of large intestine without perforation or abscess without bleeding (principal); I25.10 Atherosclerotic heart disease of native coronary artery without angina pectoris; I13.10 Hypertensive heart and chronic kidney disease without heart failure, with stage 1 through stage 4 chronic kidney disease, or unspecified chronic kidney disease; I25.2 Old myocardial infarction; E11.40 Type 2 diabetes mellitus with diabetic neuropathy, unspecified; E11.22 Type 2 diabetes mellitus with diabetic chronic kidney disease; N18.9 Chronic kidney disease, unspecified; E78.5 Hyperlipidemia, unspecified; D50.9 Iron deficiency anemia, unspecified; E53.8 Deficiency of other specified B group vitamins; K29.80 Duodenitis without bleeding; Z79.899 Other long term (current) drug therapy; Z79.82 Long term (current) use of aspirin; Z79.4 Long term (current) use of insulin; Z95.5 Presence of coronary angioplasty implant and graft; Z87.442 Personal history of urinary calculi; Z88.8 Allergy status to other drugs, medicaments and biological substances; Z88.5 Allergy status to narcotic agent

== ENCOUNTER 2017-09-15 09:38 | Inpatient (IN) | payer MEDICARE ==
[2017-09-15 10:08] LABS: BASO # 0.1 10^3/uL (0.0-0.2); BASO % 0.5 % (0.0-1.0); EOS # 0.1 10^3/uL (0.0-0.50); EOS % 0.8 % (0.0-3.0); HEMATOCRIT 36.9 % (42.0-52.0); HEMOGLOBIN 12.1 g/dl (13.5-17.5); IMMATURE GRANULOCYTE % 0.5 % (0-3.0); LYMPH # 0.6 10^3/uL (1.5-4.5); LYMPH % 5.8 % (24.0-44.0); MEAN CORPUSCULAR HEMOGLOBIN 27.4 pg (27.0-33.0); MEAN CORPUSCULAR HGB CONC 32.8 g/dl (32.0-36.5); MEAN CORPUSCULAR VOLUME 83.5 fl (80.0-96.0); MONO # 0.7 10^3/uL (0.0-0.8); MONO % 6.8 % (0.0-5.0); NEUTROPHILS # 9.1 10^3/uL (1.8-7.7); NEUTROPHILS % 85.6 % (36.0-66.0); PLATELET COUNT, AUTOMATED 342 10^3/uL (150-450); RED BLOOD COUNT 4.42 10^6/uL (4.30-6.10); RED CELL DISTRIBUTION WIDTH 14.1 % (11.5-14.5); WHITE BLOOD COUNT 10.6 10^3/uL (4.0-10.0)
[2017-09-15] MEDS: MORPHINE 4 MG/ML 1ML VIAL/SYRINGE (J2270) IV (10:35)
[2017-09-15 10:37] LABS: ALBUMIN 2.9 GM/DL (3.2-5.2); ALBUMIN/GLOBULIN RATIO 0.74 (1.00-1.93); ALKALINE PHOSPHATASE 146 U/L (45-117); ALT/SGPT 80 U/L (12-78); ANION GAP 14 MEQ/L (8-16); AST/SGOT 59 U/L (7-37); BILIRUBIN,DIRECT 0.1 MG/DL (0.0-0.2); BILIRUBIN,TOTAL 0.4 MG/DL (0.2-1.0); BLOOD UREA NITROGEN 26 MG/DL (7-18); CARBON DIOXIDE LEVEL 22 MEQ/L (21-32); CHLORIDE LEVEL 103 MEQ/L (98-107); GLOMERULAR FILTRATION RATE 38.8 (>35); GLUCOSE, FASTING 168 MG/DL (70-100); LIPASE 115 U/L (73-393); POTASSIUM SERUM 4.7 MEQ/L (3.5-5.1); SODIUM LEVEL 139 MEQ/L (136-145); TOTAL PROTEIN 6.8 GM/DL (6.4-8.2)
[2017-09-15] MEDS: NS 1,000 ML IV ×3 (11:17→20:32)
[2017-09-15] MEDS: CIPROFLOXACIN 400 MG in APPROPRIATE DILUENT 1 EA IV ×2 (11:30→22:16)
[2017-09-15] MEDS: metroNIDAZOLE 500 MG in APPROPRIATE DILUENT 1 EA IV ×2 (11:30→20:32)
[2017-09-15] MEDS ORDERED: GLUCAGON FOR INJ 1 MG VIAL (J1610) SC (12:45)
[2017-09-15] MEDS ORDERED: DEXTROSE 50% 50 ML SYRINGE IV (12:45)
[2017-09-15] MEDS ORDERED: GLUCOSE 4 GM CHEW TABLET PO (12:45)
[2017-09-15] MEDS: MIRALAX *UNIT DOSE* 17GM PACKET PO (13:37)
[2017-09-15] MEDS ORDERED: NITROGLYCERIN 0.4 MG SUBL TABLET SL (14:15)
[2017-09-15 14:45] LABS: BEDSIDE GLUCOSE 219 MG/DL (83-110)
[2017-09-15] MEDS: OMEPRAZOLE 20 MG CAP PO (15:08)
[2017-09-15] MEDS: CYANOCOBALAMIN 500 MCG TAB PO (15:08)
[2017-09-15] MEDS: FERROUS SULFATE 325MG TAB PO ×2 (15:08→21:13)
[2017-09-15] MEDS: HEPARIN SOD (PORCINE) 5000 UNITS/ML VIAL SC ×2 (15:08→21:12)
[2017-09-15] MEDS: MAGNESIUM OXIDE 400 MG TAB (MAG-OX) PO ×2 (15:08→21:13)
[2017-09-15] MEDS: HumaLOG INSULIN (NovoLOG) PER UNIT SC ×3 (15:18→20:45)
[2017-09-15 15:57] LABS: ERYTHROCYTE SEDIMENTATION RATE 82 mm/hr (0-20)
[2017-09-15 16:52] LABS: BEDSIDE GLUCOSE 121 MG/DL (83-110)
[2017-09-15] MEDS: SENNA 8.6 MG TAB (SENOKOT) PO (17:09)
[2017-09-15 20:41] LABS: BEDSIDE GLUCOSE 65 MG/DL (83-110)
[2017-09-15] MEDS: PERCOCET 5MG/325MG TAB PO (20:44)
[2017-09-15] MEDS: PRAVASTATIN 20 MG TAB PO (21:13)
[2017-09-15] MEDS: BISOPROLOL FUMARATE 5 MG TAB PO (21:16)
[2017-09-15 22:01] LABS: AMORPHOUS SEDIMENT SMALL (NEGATIVE); APPEARANCE, URINE CLOUDY (CLEAR); BACTERIA, URINE AUTO NEGATIVE (NEGATIVE); BILIRUBIN, URINE AUTO NEGATIVE (NEGATIVE); BLOOD, URINE BLOOD 1+ (NEGATIVE); COLOR, URINE YELLOW (YELLOW); GLUCOSE, URINE (UA) AUTO NEGATIVE (NEGATIVE); KETONE, URINE AUTO TRACE mg/dL (NEGATIVE); LEUKOCYTE ESTERASE, URINE AUTO TRACE (NEGATIVE); MUCUS, URINE SMALL (NEGATIVE); NITRITE, URINE AUTO NEGATIVE (NEGATIVE); PROTEIN, URINE AUTO 1+ mg/dL (NEGATIVE); RBC, URINE AUTO 1 /HPF (0-3); SPECIFIC GRAVITY URINE AUTO 1.014 (1.002-1.035); SQUAMOUS EPITHELIAL CELL UR AU 0 /HPF (0-6); UROBILINOGEN, URINE AUTO 0.2 mg/dL (0.0-2.0); WBC, URINE AUTO 2 /HPF (0-3)
[2017-09-15] MEDS: D5W/0.45% SODIUM CHLORIDE 1,000 ML IV (22:15)
[2017-09-16 02:31] LABS: BEDSIDE GLUCOSE 185 MG/DL (83-110)
[2017-09-16] MEDS: metroNIDAZOLE 500 MG in APPROPRIATE DILUENT 1 EA IV ×3 (04:19→20:20)
[2017-09-16] MEDS: PERCOCET 5MG/325MG TAB PO ×3 (04:37→21:20)
[2017-09-16] MEDS: HEPARIN SOD (PORCINE) 5000 UNITS/ML VIAL SC ×3 (06:50→21:18)
[2017-09-16 07:27] LABS: BASO % 0.3 % (0.0-1.0); EOS # 0.1 10^3/uL (0.0-0.50); EOS % 1.1 % (0.0-3.0); HEMATOCRIT 30.6 % (42.0-52.0); HEMOGLOBIN 10.2 g/dl (13.5-17.5); IMMATURE GRANULOCYTE % 0.3 % (0-3.0); LYMPH # 0.7 10^3/uL (1.5-4.5); LYMPH % 7.5 % (24.0-44.0); MEAN CORPUSCULAR HEMOGLOBIN 27.8 pg (27.0-33.0); MEAN CORPUSCULAR HGB CONC 33.3 g/dl (32.0-36.5); MEAN CORPUSCULAR VOLUME 83.4 fl (80.0-96.0); MONO # 0.8 10^3/uL (0.0-0.8); MONO % 9.2 % (0.0-5.0); NEUTROPHILS # 7.4 10^3/uL (1.8-7.7); NEUTROPHILS % 81.6 % (36.0-66.0); PLATELET COUNT, AUTOMATED 272 10^3/uL (150-450); RED BLOOD COUNT 3.67 10^6/uL (4.30-6.10); RED CELL DISTRIBUTION WIDTH 14.3 % (11.5-14.5)
[2017-09-16 07:50] LABS: ALBUMIN 2.2 GM/DL (3.2-5.2); ALBUMIN/GLOBULIN RATIO 0.56 (1.00-1.93); ALKALINE PHOSPHATASE 105 U/L (45-117); ALT/SGPT 53 U/L (12-78); ANION GAP 9 MEQ/L (8-16); AST/SGOT 37 U/L (7-37); BILIRUBIN,TOTAL 0.4 MG/DL (0.2-1.0); BLOOD UREA NITROGEN 22 MG/DL (7-18); CALCIUM LEVEL 8.3 MG/DL (8.8-10.2); CARBON DIOXIDE LEVEL 23 MEQ/L (21-32); CHLORIDE LEVEL 105 MEQ/L (98-107); CREATININE FOR GFR 1.47 MG/DL (0.70-1.30); GLOMERULAR FILTRATION RATE 49.1 (>35); GLUCOSE, FASTING 202 MG/DL (70-100); POTASSIUM SERUM 4.4 MEQ/L (3.5-5.1); SODIUM LEVEL 137 MEQ/L (136-145); TOTAL PROTEIN 6.1 GM/DL (6.4-8.2)
[2017-09-16] MEDS: HumaLOG INSULIN (NovoLOG) PER UNIT SC ×4 (07:59→21:18)
[2017-09-16 08:01] LABS: ERYTHROCYTE SEDIMENTATION RATE 75 mm/hr (0-20)
[2017-09-16] MEDS: MAGNESIUM OXIDE 400 MG TAB (MAG-OX) PO ×2 (09:26→21:19)
[2017-09-16] MEDS: MIRALAX *UNIT DOSE* 17GM PACKET PO (09:26)
[2017-09-16] MEDS: OMEPRAZOLE 20 MG CAP PO (09:27)
[2017-09-16] MEDS: D5W/0.45% SODIUM CHLORIDE 1,000 ML IV (10:50)
[2017-09-16] MEDS: CIPROFLOXACIN 400 MG in APPROPRIATE DILUENT 1 EA IV ×2 (10:50→22:19)
[2017-09-16 12:03] LABS: BEDSIDE GLUCOSE 324 MG/DL (83-110)
[2017-09-16] MEDS: CYANOCOBALAMIN 500 MCG TAB PO (12:17)
[2017-09-16] MEDS: SENOKOT S TAB PO (14:46)
[2017-09-16 17:58] LABS: BEDSIDE GLUCOSE 223 MG/DL (83-110)
[2017-09-16] MEDS ORDERED: SLF 3 ML SYR IV (19:45)
[2017-09-16] MEDS: SLF 3 ML SYR IV (20:21)
[2017-09-16 20:56] LABS: BEDSIDE GLUCOSE 269 MG/DL (83-110)
[2017-09-16] MEDS: PRAVASTATIN 20 MG TAB PO (21:19)
[2017-09-16] MEDS: BISOPROLOL FUMARATE 5 MG TAB PO (21:20)
[2017-09-17] MEDS: PERCOCET 5MG/325MG TAB PO ×3 (04:53→18:20)
[2017-09-17] MEDS: metroNIDAZOLE 500 MG in APPROPRIATE DILUENT 1 EA IV ×2 (04:53→12:38)
[2017-09-17] MEDS: SLF 3 ML SYR IV ×2 (06:22→13:45)
[2017-09-17] MEDS: HEPARIN SOD (PORCINE) 5000 UNITS/ML VIAL SC ×3 (06:22→20:48)
[2017-09-17 07:15] LABS: HEMATOCRIT 30.7 % (42.0-52.0); HEMOGLOBIN 9.9 g/dl (13.5-17.5); MEAN CORPUSCULAR HEMOGLOBIN 27.7 pg (27.0-33.0); MEAN CORPUSCULAR HGB CONC 32.2 g/dl (32.0-36.5); PLATELET COUNT, AUTOMATED 292 10^3/uL (150-450); RED BLOOD COUNT 3.57 10^6/uL (4.30-6.10); RED CELL DISTRIBUTION WIDTH 14.1 % (11.5-14.5); WHITE BLOOD COUNT 10.4 10^3/uL (4.0-10.0)
[2017-09-17 07:21] LABS: MAGNESIUM LEVEL 1.3 MG/DL (1.8-2.4)
[2017-09-17] MEDS: HumaLOG INSULIN (NovoLOG) PER UNIT SC ×4 (07:30→21:19)
[2017-09-17 07:53] LABS: BEDSIDE GLUCOSE 206 MG/DL (83-110)
[2017-09-17] MEDS: OMEPRAZOLE 20 MG CAP PO (08:02)
[2017-09-17] MEDS: MIRALAX *UNIT DOSE* 17GM PACKET PO (08:02)
[2017-09-17] MEDS: MAGNESIUM OXIDE 400 MG TAB (MAG-OX) PO ×2 (08:02→20:46)
[2017-09-17] MEDS: CYANOCOBALAMIN 500 MCG TAB PO (08:02)
[2017-09-17] MEDS: MAG SULF 1GM/100ML (MAG RUN) 1 GM in APPROPRIATE DILUENT 1 EA IV (09:03)
[2017-09-17 09:32] LABS: ALBUMIN 2.2 GM/DL (3.2-5.2); ALBUMIN/GLOBULIN RATIO 0.58 (1.00-1.93); ALKALINE PHOSPHATASE 98 U/L (45-117); ALT/SGPT 45 U/L (12-78); ANION GAP 8 MEQ/L (8-16); AST/SGOT 27 U/L (7-37); BILIRUBIN,TOTAL 0.4 MG/DL (0.2-1.0); BLOOD UREA NITROGEN 15 MG/DL (7-18); CALCIUM LEVEL 8.3 MG/DL (8.8-10.2); CARBON DIOXIDE LEVEL 28 MEQ/L (21-32); CHLORIDE LEVEL 100 MEQ/L (98-107); CREATININE FOR GFR 1.36 MG/DL (0.70-1.30); GLOMERULAR FILTRATION RATE 53.7 (>35); GLUCOSE, FASTING 196 MG/DL (70-100); POTASSIUM SERUM 4.3 MEQ/L (3.5-5.1); SODIUM LEVEL 136 MEQ/L (136-145)
[2017-09-17] MEDS: CIPROFLOXACIN 400 MG in APPROPRIATE DILUENT 1 EA IV (11:08)
[2017-09-17 11:25] LABS: BEDSIDE GLUCOSE 294 MG/DL (83-110)
[2017-09-17] MEDS: MORPHINE 4 MG/ML 1ML VIAL/SYRINGE (J2270) IV (12:44)
[2017-09-17 16:58] LABS: BEDSIDE GLUCOSE 174 MG/DL (83-110)
[2017-09-17] MEDS: PIPERACILLIN/TAZOBACTAM SOD 3.375 GM in D5W MINI-BAG PLUS 50 ML IV (18:01)
[2017-09-17] MEDS: SENOKOT S TAB PO (18:19)
[2017-09-17] MEDS: PRAVASTATIN 20 MG TAB PO (20:46)
[2017-09-17] MEDS: BISOPROLOL FUMARATE 5 MG TAB PO (20:47)
[2017-09-17 21:15] LABS: BEDSIDE GLUCOSE 268 MG/DL (83-110)
[2017-09-18] MEDS: PIPERACILLIN/TAZOBACTAM SOD 3.375 GM in D5W MINI-BAG PLUS 50 ML IV ×4 (00:16→17:46)
[2017-09-18] MEDS: SLF 3 ML SYR IV ×4 (00:16→22:00)
[2017-09-18] MEDS: PERCOCET 5MG/325MG TAB PO (06:06)
[2017-09-18] MEDS: HEPARIN SOD (PORCINE) 5000 UNITS/ML VIAL SC ×3 (06:12→20:34)
[2017-09-18 06:37] LABS: BASO % 0.2 % (0.0-1.0); EOS # 0.1 10^3/uL (0.0-0.50); EOS % 1.3 % (0.0-3.0); HEMATOCRIT 30.5 % (42.0-52.0); HEMOGLOBIN 10.2 g/dl (13.5-17.5); IMMATURE GRANULOCYTE % 0.6 % (0-3.0); LYMPH # 0.6 10^3/uL (1.5-4.5); LYMPH % 5.7 % (24.0-44.0); MEAN CORPUSCULAR HEMOGLOBIN 27.9 pg (27.0-33.0); MEAN CORPUSCULAR HGB CONC 33.4 g/dl (32.0-36.5); MEAN CORPUSCULAR VOLUME 83.6 fl (80.0-96.0); MONO # 0.8 10^3/uL (0.0-0.8); NEUTROPHILS # 8.8 10^3/uL (1.8-7.7); NEUTROPHILS % 84.2 % (36.0-66.0); PLATELET COUNT, AUTOMATED 357 10^3/uL (150-450); RED BLOOD COUNT 3.65 10^6/uL (4.30-6.10); RED CELL DISTRIBUTION WIDTH 14.1 % (11.5-14.5); WHITE BLOOD COUNT 10.4 10^3/uL (4.0-10.0)
[2017-09-18 06:54] LABS: ALBUMIN 2.3 GM/DL (3.2-5.2); ALBUMIN/GLOBULIN RATIO 0.58 (1.00-1.93); ALKALINE PHOSPHATASE 101 U/L (45-117); ALT/SGPT 42 U/L (12-78); ANION GAP 9 MEQ/L (8-16); AST/SGOT 27 U/L (7-37); BILIRUBIN,TOTAL 0.4 MG/DL (0.2-1.0); BLOOD UREA NITROGEN 15 MG/DL (7-18); CALCIUM LEVEL 8.4 MG/DL (8.8-10.2); CARBON DIOXIDE LEVEL 26 MEQ/L (21-32); CHLORIDE LEVEL 99 MEQ/L (98-107); CREATININE FOR GFR 1.54 MG/DL (0.70-1.30); GLOMERULAR FILTRATION RATE 46.5 (>35); GLUCOSE, FASTING 234 MG/DL (70-100); MAGNESIUM LEVEL 1.7 MG/DL (1.8-2.4); POTASSIUM SERUM 4.4 MEQ/L (3.5-5.1); SODIUM LEVEL 134 MEQ/L (136-145); TOTAL PROTEIN 6.3 GM/DL (6.4-8.2)
[2017-09-18 07:49] LABS: BEDSIDE GLUCOSE 239 MG/DL (83-110)
[2017-09-18] MEDS: HumaLOG INSULIN (NovoLOG) PER UNIT SC ×4 (07:56→21:01)
[2017-09-18] MEDS: MIRALAX *UNIT DOSE* 17GM PACKET PO ×2 (08:57→21:00)
[2017-09-18] MEDS: CYANOCOBALAMIN 500 MCG TAB PO (08:58)
[2017-09-18] MEDS: MAGNESIUM OXIDE 400 MG TAB (MAG-OX) PO ×2 (08:58→20:36)
[2017-09-18] MEDS: OMEPRAZOLE 20 MG CAP PO (08:58)
[2017-09-18] MEDS: ACETAMINOPHEN TAB 650MG DOSE (2X325MG) PO (10:27)
[2017-09-18] MEDS: NS 1,000 ML IV ×2 (11:49→21:00)
[2017-09-18 11:57] LABS: BEDSIDE GLUCOSE 279 MG/DL (83-110)
[2017-09-18] MEDS: SENOKOT S TAB PO (15:00)
[2017-09-18 17:38] LABS: BEDSIDE GLUCOSE 162 MG/DL (83-110)
[2017-09-18] MEDS: PRAVASTATIN 20 MG TAB PO (20:34)
[2017-09-18 20:36] LABS: BEDSIDE GLUCOSE 332 MG/DL (83-110)
[2017-09-18] MEDS: BISOPROLOL FUMARATE 5 MG TAB PO (20:36)
[2017-09-18] MEDS: MAGNESIUM CITRATE 300 ML BTL PO (20:59)
[2017-09-19] MEDS: PIPERACILLIN/TAZOBACTAM SOD 3.375 GM in D5W MINI-BAG PLUS 50 ML IV ×4 (00:15→17:51)
[2017-09-19] MEDS: ACETAMINOPHEN TAB 650MG DOSE (2X325MG) PO ×3 (04:49→19:15)
[2017-09-19] MEDS: HEPARIN SOD (PORCINE) 5000 UNITS/ML VIAL SC ×3 (06:00→21:28)
[2017-09-19] MEDS: SLF 3 ML SYR IV ×3 (06:25→21:30)
[2017-09-19 07:02] LABS: BASO % 0.3 % (0.0-1.0); EOS # 0.1 10^3/uL (0.0-0.50); EOS % 1.3 % (0.0-3.0); HEMATOCRIT 29.2 % (42.0-52.0); HEMOGLOBIN 9.6 g/dl (13.5-17.5); IMMATURE GRANULOCYTE % 0.5 % (0-3.0); LYMPH # 0.6 10^3/uL (1.5-4.5); MEAN CORPUSCULAR HEMOGLOBIN 28.1 pg (27.0-33.0); MEAN CORPUSCULAR HGB CONC 32.9 g/dl (32.0-36.5); MEAN CORPUSCULAR VOLUME 85.4 fl (80.0-96.0); MONO # 0.8 10^3/uL (0.0-0.8); MONO % 8.5 % (0.0-5.0); NEUTROPHILS # 8.3 10^3/uL (1.8-7.7); NEUTROPHILS % 83.4 % (36.0-66.0); PLATELET COUNT, AUTOMATED 332 10^3/uL (150-450); RED BLOOD COUNT 3.42 10^6/uL (4.30-6.10); RED CELL DISTRIBUTION WIDTH 14.2 % (11.5-14.5); WHITE BLOOD COUNT 9.9 10^3/uL (4.0-10.0)
[2017-09-19 07:20] LABS: ALBUMIN/GLOBULIN RATIO 0.56 (1.00-1.93); ALKALINE PHOSPHATASE 81 U/L (45-117); ALT/SGPT 36 U/L (12-78); ANION GAP 6 MEQ/L (8-16); AST/SGOT 30 U/L (7-37); BILIRUBIN,TOTAL 0.3 MG/DL (0.2-1.0); BLOOD UREA NITROGEN 15 MG/DL (7-18); CALCIUM LEVEL 7.9 MG/DL (8.8-10.2); CARBON DIOXIDE LEVEL 28 MEQ/L (21-32); CHLORIDE LEVEL 102 MEQ/L (98-107); CREATININE FOR GFR 1.41 MG/DL (0.70-1.30); GLOMERULAR FILTRATION RATE 51.5 (>35); GLUCOSE, FASTING 193 MG/DL (70-100); MAGNESIUM LEVEL 1.8 MG/DL (1.8-2.4); POTASSIUM SERUM 4.2 MEQ/L (3.5-5.1); SODIUM LEVEL 136 MEQ/L (136-145); TOTAL PROTEIN 5.6 GM/DL (6.4-8.2)
[2017-09-19] MEDS: NS 1,000 ML IV ×2 (07:41→21:30)
[2017-09-19] MEDS: HumaLOG INSULIN (NovoLOG) PER UNIT SC ×4 (07:41→21:00)
[2017-09-19] MEDS: MIRALAX *UNIT DOSE* 17GM PACKET PO (07:42)
[2017-09-19] MEDS: MAGNESIUM OXIDE 400 MG TAB (MAG-OX) PO ×2 (08:30→21:29)
[2017-09-19] MEDS: OMEPRAZOLE 20 MG CAP PO (08:31)
[2017-09-19] MEDS: CYANOCOBALAMIN 500 MCG TAB PO (08:31)
[2017-09-19 12:04] LABS: BEDSIDE GLUCOSE 231 MG/DL (83-110)
[2017-09-19 17:11] LABS: BEDSIDE GLUCOSE 202 MG/DL (83-110)
[2017-09-19] MEDS: BISOPROLOL FUMARATE 5 MG TAB PO (21:29)
[2017-09-19] MEDS: PRAVASTATIN 20 MG TAB PO (21:29)
[2017-09-19 21:48] LABS: BEDSIDE GLUCOSE 231 MG/DL (83-110)
[2017-09-20] MEDS: PIPERACILLIN/TAZOBACTAM SOD 3.375 GM in D5W MINI-BAG PLUS 50 ML IV ×3 (00:10→12:44)
[2017-09-20] MEDS: ACETAMINOPHEN TAB 650MG DOSE (2X325MG) PO ×4 (02:34→21:18)
[2017-09-20] MEDS: HEPARIN SOD (PORCINE) 5000 UNITS/ML VIAL SC ×3 (05:35→21:18)
[2017-09-20] MEDS: SLF 3 ML SYR IV ×3 (05:35→20:31)
[2017-09-20 06:58] LABS: HEMOGLOBIN 9.7 g/dl (13.5-17.5); MEAN CORPUSCULAR HEMOGLOBIN 27.6 pg (27.0-33.0); MEAN CORPUSCULAR HGB CONC 32.3 g/dl (32.0-36.5); MEAN CORPUSCULAR VOLUME 85.5 fl (80.0-96.0); PLATELET COUNT, AUTOMATED 383 10^3/uL (150-450); RED BLOOD COUNT 3.51 10^6/uL (4.30-6.10); RED CELL DISTRIBUTION WIDTH 14.3 % (11.5-14.5); WHITE BLOOD COUNT 9.8 10^3/uL (4.0-10.0)
[2017-09-20 07:19] LABS: ALBUMIN/GLOBULIN RATIO 0.65 (1.00-1.93); ALKALINE PHOSPHATASE 84 U/L (45-117); ALT/SGPT 40 U/L (12-78); ANION GAP 8 MEQ/L (8-16); AST/SGOT 40 U/L (7-37); BILIRUBIN,TOTAL 0.3 MG/DL (0.2-1.0); BLOOD UREA NITROGEN 17 MG/DL (7-18); CALCIUM LEVEL 7.7 MG/DL (8.8-10.2); CARBON DIOXIDE LEVEL 30 MEQ/L (21-32); CHLORIDE LEVEL 102 MEQ/L (98-107); GLOMERULAR FILTRATION RATE 51.9 (>35); GLUCOSE, FASTING 191 MG/DL (70-100); POTASSIUM SERUM 4.3 MEQ/L (3.5-5.1); SODIUM LEVEL 140 MEQ/L (136-145); TOTAL PROTEIN 5.1 GM/DL (6.4-8.2)
[2017-09-20] MEDS: HumaLOG INSULIN (NovoLOG) PER UNIT SC ×4 (08:35→20:29)
[2017-09-20] MEDS: OMEPRAZOLE 20 MG CAP PO (08:35)
[2017-09-20] MEDS: NS 1,000 ML IV ×2 (08:35→23:56)
[2017-09-20] MEDS: MAGNESIUM OXIDE 400 MG TAB (MAG-OX) PO ×2 (08:36→20:30)
[2017-09-20] MEDS: CYANOCOBALAMIN 500 MCG TAB PO (08:36)
[2017-09-20 11:30] LABS: BEDSIDE GLUCOSE 298 MG/DL (83-110)
[2017-09-20 17:21] LABS: BEDSIDE GLUCOSE 142 MG/DL (83-110)
[2017-09-20] MEDS: AUGMENTIN 875 MG TAB PO (20:29)
[2017-09-20] MEDS: BISOPROLOL FUMARATE 5 MG TAB PO (20:30)
[2017-09-20] MEDS: PRAVASTATIN 20 MG TAB PO (20:31)
[2017-09-20 20:36] LABS: BEDSIDE GLUCOSE 325 MG/DL (83-110)
[2017-09-21] MEDS: ACETAMINOPHEN TAB 650MG DOSE (2X325MG) PO (04:35)
[2017-09-21] MEDS: SLF 3 ML SYR IV (06:00)
[2017-09-21] MEDS: HEPARIN SOD (PORCINE) 5000 UNITS/ML VIAL SC (06:29)
[2017-09-21 07:10] LABS: BASO % 0.3 % (0.0-1.0); EOS # 0.1 10^3/uL (0.0-0.50); EOS % 0.9 % (0.0-3.0); HEMATOCRIT 31.7 % (42.0-52.0); HEMOGLOBIN 10.3 g/dl (13.5-17.5); IMMATURE GRANULOCYTE % 0.8 % (0-3.0); LYMPH # 0.8 10^3/uL (1.5-4.5); LYMPH % 6.6 % (24.0-44.0); MEAN CORPUSCULAR HEMOGLOBIN 27.9 pg (27.0-33.0); MEAN CORPUSCULAR HGB CONC 32.5 g/dl (32.0-36.5); MEAN CORPUSCULAR VOLUME 85.9 fl (80.0-96.0); MONO # 0.9 10^3/uL (0.0-0.8); MONO % 7.2 % (0.0-5.0); NEUTROPHILS # 10.7 10^3/uL (1.8-7.7); NEUTROPHILS % 84.2 % (36.0-66.0); PLATELET COUNT, AUTOMATED 447 10^3/uL (150-450); RED BLOOD COUNT 3.69 10^6/uL (4.30-6.10); RED CELL DISTRIBUTION WIDTH 14.2 % (11.5-14.5); WHITE BLOOD COUNT 12.7 10^3/uL (4.0-10.0)
[2017-09-21 07:28] LABS: ALBUMIN 2.2 GM/DL (3.2-5.2); ALKALINE PHOSPHATASE 85 U/L (45-117); ALT/SGPT 49 U/L (12-78); ANION GAP 8 MEQ/L (8-16); AST/SGOT 45 U/L (7-37); BILIRUBIN,TOTAL 0.3 MG/DL (0.2-1.0); BLOOD UREA NITROGEN 15 MG/DL (7-18); CARBON DIOXIDE LEVEL 29 MEQ/L (21-32); CHLORIDE LEVEL 100 MEQ/L (98-107); CREATININE FOR GFR 1.37 MG/DL (0.70-1.30); GLOMERULAR FILTRATION RATE 53.2 (>35); GLUCOSE, FASTING 196 MG/DL (70-100); POTASSIUM SERUM 3.7 MEQ/L (3.5-5.1); SODIUM LEVEL 137 MEQ/L (136-145); TOTAL PROTEIN 6.6 GM/DL (6.4-8.2)
[2017-09-21] MEDS: HumaLOG INSULIN (NovoLOG) PER UNIT SC ×2 (07:30→12:23)
[2017-09-21] MEDS: OMEPRAZOLE 20 MG CAP PO (08:24)
[2017-09-21] MEDS: PERCOCET 5MG/325MG TAB PO (08:25)
[2017-09-21] MEDS: MAGNESIUM OXIDE 400 MG TAB (MAG-OX) PO (08:26)
[2017-09-21] MEDS: CYANOCOBALAMIN 500 MCG TAB PO (08:26)
[2017-09-21] MEDS: AUGMENTIN 875 MG TAB PO (08:26)
[2017-09-21] MEDS: NS 1,000 ML IV (08:45)
[2017-09-21 11:26] LABS: APPEARANCE, URINE CLEAR (CLEAR); BACTERIA, URINE AUTO NEGATIVE (NEGATIVE); BILIRUBIN, URINE AUTO NEGATIVE (NEGATIVE); BLOOD, URINE BLOOD 1+ (NEGATIVE); COLOR, URINE YELLOW (YELLOW); GLUCOSE, URINE (UA) AUTO 3+ mg/dL (NEGATIVE); KETONE, URINE AUTO TRACE mg/dL (NEGATIVE); LEUKOCYTE ESTERASE, URINE AUTO NEGATIVE (NEGATIVE); NITRITE, URINE AUTO NEGATIVE (NEGATIVE); PROTEIN, URINE AUTO 2+ mg/dL (NEGATIVE); RBC, URINE AUTO 1 /HPF (0-3); SPECIFIC GRAVITY URINE AUTO 1.013 (1.002-1.035); SQUAMOUS EPITHELIAL CELL UR AU 0 /HPF (0-6); UROBILINOGEN, URINE AUTO 0.2 mg/dL (0.0-2.0); WBC, URINE AUTO 1 /HPF (0-3)
[2017-09-21 12:14] LABS: BEDSIDE GLUCOSE 303 MG/DL (83-110)
== END 2017-09-21 14:50 | disposition home or self-care (01) | DRG 392 ==
LOC: M ED 09:38 → M ED INP 12:41 → M PED 16:01
DX: K57.32 Diverticulitis of large intestine without perforation or abscess without bleeding (principal); K56.7 Ileus, unspecified; K59.03 Drug induced constipation; I13.10 Hypertensive heart and chronic kidney disease without heart failure, with stage 1 through stage 4 chronic kidney disease, or unspecified chronic kidney disease; E83.42 Hypomagnesemia; I25.10 Atherosclerotic heart disease of native coronary artery without angina pectoris; E78.5 Hyperlipidemia, unspecified; D50.9 Iron deficiency anemia, unspecified; E53.8 Deficiency of other specified B group vitamins; M54.5 Low back pain; E11.40 Type 2 diabetes mellitus with diabetic neuropathy, unspecified; E11.22 Type 2 diabetes mellitus with diabetic chronic kidney disease; N18.3 Chronic kidney disease, stage 3 (moderate); Z79.82 Long term (current) use of aspirin; Z79.4 Long term (current) use of insulin; Z79.899 Other long term (current) drug therapy; Z95.5 Presence of coronary angioplasty implant and graft; I25.2 Old myocardial infarction; Z87.442 Personal history of urinary calculi; E78.00 Pure hypercholesterolemia, unspecified

== ENCOUNTER → 2017-09-23 | Outpatient (REF) | payer MEDICARE | LOC: M SFHCADAM 17:49 | DX: M54.5 Low back pain (principal); M46.47 Discitis, unspecified, lumbosacral region; Z53.8 Procedure and treatment not carried out for other reasons ==

== ENCOUNTER 2017-09-24 10:13 | Inpatient (IN) | payer MEDICARE ==
[2017-09-24] MEDS: MIRALAX *UNIT DOSE* 17GM PACKET PO ×2 (09:00→21:33)
[~2017-09-24 10:13] MED LIST changes: +ACETAMINOPHEN 500 MG TAB PO; -AMOX875T2 PO; -ASPI1TAB PO; -BISO5TAB5 PO; +DEXTROSE 50% 50 ML SYRINGE IV; -FERR325T3 PO; -GLIM2TAB PO; +GLUCAGON FOR INJ 1 MG VIAL (J1610) SC; +GLUCOSE 4 GM CHEW TABLET PO; +HEPARIN SOD (PORCINE) 5000 UNITS/ML VIAL SQ; -IRBE75TA5 PO; -KEFL500C17 PO; -KETOROLAC 0.4% OS; -LANTINJ4 SC; -LEVA1TAB2 PO; -METF10004; -METF10004 PO; -MULTCAP PO; -NITR4TASL SL; -OMEP20CA3 PO; -PRAV40TA2 PO; -PREDOPD OS; -TYLE325T5 PO
[2017-09-24 11:10] LABS: BASO % 0.2 % (0.0-1.0); EOS % 0.3 % (0.0-3.0); HEMATOCRIT 34.2 % (42.0-52.0); IMMATURE GRANULOCYTE % 0.6 % (0-3.0); LYMPH # 0.3 10^3/uL (1.5-4.5); LYMPH % 2.3 % (24.0-44.0); MEAN CORPUSCULAR HEMOGLOBIN 27.7 pg (27.0-33.0); MEAN CORPUSCULAR HGB CONC 32.2 g/dl (32.0-36.5); MEAN CORPUSCULAR VOLUME 86.1 fl (80.0-96.0); MONO # 0.8 10^3/uL (0.0-0.8); MONO % 5.6 % (0.0-5.0); NEUTROPHILS # 13.6 10^3/uL (1.8-7.7); PLATELET COUNT, AUTOMATED 486 10^3/uL (150-450); RED BLOOD COUNT 3.97 10^6/uL (4.30-6.10); RED CELL DISTRIBUTION WIDTH 14.5 % (11.5-14.5); WHITE BLOOD COUNT 14.9 10^3/uL (4.0-10.0)
[2017-09-24 11:18] LABS: INR 1.16
[2017-09-24 11:19] LABS: PARTIAL THROMBOPLASTIN TIME 25.8 SECONDS (25.4-37.6)
[2017-09-24 11:35] LABS: ERYTHROCYTE SEDIMENTATION RATE 90 mm/hr (0-20)
[2017-09-24 11:38] LABS: ALBUMIN 2.4 GM/DL (3.2-5.2); ALBUMIN/GLOBULIN RATIO 0.59 (1.00-1.93); ALKALINE PHOSPHATASE 115 U/L (45-117); ALT/SGPT 91 U/L (12-78); ANION GAP 8 MEQ/L (8-16); AST/SGOT 104 U/L (7-37); BILIRUBIN,TOTAL 0.5 MG/DL (0.2-1.0); BLOOD UREA NITROGEN 21 MG/DL (7-18); CALCIUM LEVEL 8.2 MG/DL (8.8-10.2); CARBON DIOXIDE LEVEL 29 MEQ/L (21-32); CHLORIDE LEVEL 96 MEQ/L (98-107); CREATININE FOR GFR 1.52 MG/DL (0.70-1.30); GLOMERULAR FILTRATION RATE 47.2 (>35); GLUCOSE, FASTING 321 MG/DL (70-100); POTASSIUM SERUM 3.8 MEQ/L (3.5-5.1); SODIUM LEVEL 133 MEQ/L (136-145); TOTAL PROTEIN 6.5 GM/DL (6.4-8.2)
[2017-09-24] MEDS ORDERED: PROHANCE 279.3MG/ML 5ML VIAL (A9576) As Ordered (12:12)
[2017-09-24 13:12] LABS: BEDSIDE GLUCOSE 276 MG/DL (83-110)
[2017-09-24] MEDS: SENOKOT S TAB PO ×2 (13:18→21:33)
[2017-09-24] MEDS: HEPARIN SOD (PORCINE) 5000 UNITS/ML VIAL SQ ×2 (13:19→21:35)
[2017-09-24] MEDS: HumaLOG INSULIN (NovoLOG) PER UNIT SC ×3 (13:19→21:00)
[2017-09-24] MEDS: NORCO, ANEXSIA 5/325MG TABLET (HYDROcodone/ACETAMINOPHEN) PO (15:17)
[2017-09-24 16:45] LABS: BEDSIDE GLUCOSE 118 MG/DL (83-110)
[2017-09-24 21:17] LABS: BEDSIDE GLUCOSE 123 MG/DL (83-110)
[2017-09-24] MEDS: PRAVASTATIN 20 MG TAB PO (21:33)
[2017-09-24] MEDS: BISOPROLOL FUMARATE 5 MG TAB PO (21:34)
[2017-09-24] MEDS: LEVEMIR (INSULIN DETEMIR) 1 UNITS/0.01ML SC (21:35)
[2017-09-24 22:24] LABS: APPEARANCE, URINE CLOUDY (CLEAR); BACTERIA, URINE AUTO NEGATIVE (NEGATIVE); BILIRUBIN, URINE AUTO NEGATIVE (NEGATIVE); BLOOD, URINE BLOOD 1+ (NEGATIVE); COLOR, URINE YELLOW (YELLOW); GLUCOSE, URINE (UA) AUTO 1+ mg/dL (NEGATIVE); KETONE, URINE AUTO NEGATIVE (NEGATIVE); LEUKOCYTE ESTERASE, URINE AUTO NEGATIVE (NEGATIVE); MUCUS, URINE SMALL (NEGATIVE); NITRITE, URINE AUTO NEGATIVE (NEGATIVE); PROTEIN, URINE AUTO 2+ mg/dL (NEGATIVE); RBC, URINE AUTO 1 /HPF (0-3); SPECIFIC GRAVITY URINE AUTO 1.019 (1.002-1.035); SQUAMOUS EPITHELIAL CELL UR AU 0 /HPF (0-6); UROBILINOGEN, URINE AUTO 0.2 mg/dL (0.0-2.0); WBC, URINE AUTO 2 /HPF (0-3)
[2017-09-24] MEDS: NS 1,000 ML IV (22:40)
[2017-09-25] MEDS: NORCO, ANEXSIA 5/325MG TABLET (HYDROcodone/ACETAMINOPHEN) PO ×3 (04:05→23:36)
[2017-09-25 05:47] LABS: BASO % 0.2 % (0.0-1.0); EOS # 0.1 10^3/uL (0.0-0.50); EOS % 0.9 % (0.0-3.0); HEMATOCRIT 30.3 % (42.0-52.0); HEMOGLOBIN 9.8 g/dl (13.5-17.5); IMMATURE GRANULOCYTE % 0.6 % (0-3.0); LYMPH # 0.7 10^3/uL (1.5-4.5); LYMPH % 6.2 % (24.0-44.0); MEAN CORPUSCULAR HEMOGLOBIN 27.6 pg (27.0-33.0); MEAN CORPUSCULAR HGB CONC 32.3 g/dl (32.0-36.5); MEAN CORPUSCULAR VOLUME 85.4 fl (80.0-96.0); MONO # 0.8 10^3/uL (0.0-0.8); MONO % 7.1 % (0.0-5.0); PLATELET COUNT, AUTOMATED 432 10^3/uL (150-450); RED BLOOD COUNT 3.55 10^6/uL (4.30-6.10); RED CELL DISTRIBUTION WIDTH 14.5 % (11.5-14.5); WHITE BLOOD COUNT 10.6 10^3/uL (4.0-10.0)
[2017-09-25 06:06] LABS: ERYTHROCYTE SEDIMENTATION RATE 106 mm/hr (0-20)
[2017-09-25 06:09] LABS: ANION GAP 8 MEQ/L (8-16); BLOOD UREA NITROGEN 17 MG/DL (7-18); CALCIUM LEVEL 8.4 MG/DL (8.8-10.2); CARBON DIOXIDE LEVEL 31 MEQ/L (21-32); CHLORIDE LEVEL 101 MEQ/L (98-107); CREATININE FOR GFR 1.23 MG/DL (0.70-1.30); GLOMERULAR FILTRATION RATE > 60.0 (>35); GLUCOSE, FASTING 53 MG/DL (70-100); POTASSIUM SERUM 3.5 MEQ/L (3.5-5.1); SODIUM LEVEL 140 MEQ/L (136-145)
[2017-09-25] MEDS: HumaLOG INSULIN (NovoLOG) PER UNIT SC ×4 (08:09→21:00)
[2017-09-25] MEDS: HEPARIN SOD (PORCINE) 5000 UNITS/ML VIAL SQ ×2 (08:24→20:48)
[2017-09-25] MEDS ORDERED: VANCOMYCIN HCL 1,000 MG in IV FLUID PLACE HOLDER 1 EA IV (08:45)
[2017-09-25] MEDS: MIRALAX *UNIT DOSE* 17GM PACKET PO ×2 (08:45→20:56)
[2017-09-25] MEDS: SENOKOT S TAB PO ×2 (08:45→20:56)
[2017-09-25] MEDS ORDERED: cefTRIAXone SOD 2 GM in D5W MINI-BAG PLUS 50 ML IV (10:00)
[2017-09-25 10:27] LABS: BEDSIDE GLUCOSE 161 MG/DL (83-110)
[2017-09-25] MEDS ORDERED: VANCOMYCIN HCL 1,000 MG, VIAL MATE ADAPTER 1 EACH in D5W 250 ML IV (11:00)
[2017-09-25 11:33] LABS: BEDSIDE GLUCOSE 139 MG/DL (83-110)
[2017-09-25] MEDS ORDERED: LIDOCAINE 1% MDV 20ML VIAL As Ordered (12:09)
[2017-09-25] MEDS: cefTRIAXone SOD 2 GM in D5W MINI-BAG PLUS 50 ML IV (14:22)
[2017-09-25] MEDS: VANCOMYCIN HCL 750 MG, VIAL MATE ADAPTER 1 EACH in D5W 250 ML IV ×2 (14:35→16:21)
[2017-09-25] MEDS: VANCOMYCIN HCL 1,000 MG, VIAL MATE ADAPTER 1 EACH in D5W 250 ML IV (14:59)
[2017-09-25 17:20] LABS: BEDSIDE GLUCOSE 178 MG/DL (83-110)
[2017-09-25] MEDS: SODIUM CHLORIDE 0.9% INJ 10 ML SYR IV (18:05)
[2017-09-25 20:06] LABS: BEDSIDE GLUCOSE 135 MG/DL (83-110)
[2017-09-25] MEDS: PRAVASTATIN 20 MG TAB PO (20:48)
[2017-09-25] MEDS: BISOPROLOL FUMARATE 5 MG TAB PO (20:49)
[2017-09-25] MEDS: LEVEMIR (INSULIN DETEMIR) 1 UNITS/0.01ML SC (20:49)
[2017-09-26] MEDS: VANCOMYCIN HCL 1,000 MG, VIAL MATE ADAPTER 1 EACH in D5W 250 ML IV ×2 (02:34→14:04)
[2017-09-26] MEDS: SODIUM CHLORIDE 0.9% INJ 10 ML SYR IV ×2 (05:32→17:18)
[2017-09-26 05:49] LABS: BASO % 0.3 % (0.0-1.0); EOS # 0.2 10^3/uL (0.0-0.50); HEMATOCRIT 28.6 % (42.0-52.0); HEMOGLOBIN 9.4 g/dl (13.5-17.5); IMMATURE GRANULOCYTE % 0.3 % (0-3.0); LYMPH # 0.7 10^3/uL (1.5-4.5); LYMPH % 8.5 % (24.0-44.0); MEAN CORPUSCULAR HEMOGLOBIN 27.6 pg (27.0-33.0); MEAN CORPUSCULAR HGB CONC 32.9 g/dl (32.0-36.5); MEAN CORPUSCULAR VOLUME 84.1 fl (80.0-96.0); MONO # 0.7 10^3/uL (0.0-0.8); MONO % 8.3 % (0.0-5.0); NEUTROPHILS # 6.9 10^3/uL (1.8-7.7); NEUTROPHILS % 80.6 % (36.0-66.0); PLATELET COUNT, AUTOMATED 436 10^3/uL (150-450); RED CELL DISTRIBUTION WIDTH 14.6 % (11.5-14.5); WHITE BLOOD COUNT 8.6 10^3/uL (4.0-10.0)
[2017-09-26 06:05] LABS: ANION GAP 9 MEQ/L (8-16); BLOOD UREA NITROGEN 14 MG/DL (7-18); CARBON DIOXIDE LEVEL 31 MEQ/L (21-32); CHLORIDE LEVEL 97 MEQ/L (98-107); CREATININE FOR GFR 1.14 MG/DL (0.70-1.30); GLOMERULAR FILTRATION RATE > 60.0 (>35); GLUCOSE, FASTING 91 MG/DL (70-100); POTASSIUM SERUM 3.3 MEQ/L (3.5-5.1); SODIUM LEVEL 137 MEQ/L (136-145)
[2017-09-26] MEDS: HumaLOG INSULIN (NovoLOG) PER UNIT SC ×4 (07:30→21:18)
[2017-09-26] MEDS: MIRALAX *UNIT DOSE* 17GM PACKET PO ×2 (09:00→21:24)
[2017-09-26] MEDS: SENOKOT S TAB PO ×2 (09:00→21:24)
[2017-09-26] MEDS: HEPARIN SOD (PORCINE) 5000 UNITS/ML VIAL SQ ×2 (09:00→21:28)
[2017-09-26] MEDS: NORCO, ANEXSIA 5/325MG TABLET (HYDROcodone/ACETAMINOPHEN) PO ×3 (09:06→21:29)
[2017-09-26 11:36] LABS: BEDSIDE GLUCOSE 166 MG/DL (83-110)
[2017-09-26] MEDS: cefTRIAXone SOD 2 GM in D5W MINI-BAG PLUS 50 ML IV (13:12)
[2017-09-26 16:49] LABS: BEDSIDE GLUCOSE 193 MG/DL (83-110)
[2017-09-26 21:23] LABS: BEDSIDE GLUCOSE 180 MG/DL (83-110)
[2017-09-26] MEDS: PRAVASTATIN 20 MG TAB PO (21:28)
[2017-09-26] MEDS: BISOPROLOL FUMARATE 5 MG TAB PO (21:28)
[2017-09-26] MEDS: LEVEMIR (INSULIN DETEMIR) 1 UNITS/0.01ML SC (21:29)
[2017-09-27] MEDS: VANCOMYCIN HCL 1,000 MG, VIAL MATE ADAPTER 1 EACH in D5W 250 ML IV ×2 (03:19→15:12)
[2017-09-27] MEDS: NORCO, ANEXSIA 5/325MG TABLET (HYDROcodone/ACETAMINOPHEN) PO ×3 (03:19→20:40)
[2017-09-27] MEDS: SODIUM CHLORIDE 0.9% INJ 10 ML SYR IV ×2 (04:57→17:23)
[2017-09-27 05:12] LABS: BASO % 0.4 % (0.0-1.0); EOS # 0.2 10^3/uL (0.0-0.50); EOS % 2.5 % (0.0-3.0); HEMATOCRIT 28.7 % (42.0-52.0); HEMOGLOBIN 9.4 g/dl (13.5-17.5); IMMATURE GRANULOCYTE % 0.4 % (0-3.0); LYMPH # 0.7 10^3/uL (1.5-4.5); LYMPH % 9.6 % (24.0-44.0); MEAN CORPUSCULAR HEMOGLOBIN 27.8 pg (27.0-33.0); MEAN CORPUSCULAR HGB CONC 32.8 g/dl (32.0-36.5); MEAN CORPUSCULAR VOLUME 84.9 fl (80.0-96.0); MONO # 0.6 10^3/uL (0.0-0.8); MONO % 8.5 % (0.0-5.0); NEUTROPHILS % 78.6 % (36.0-66.0); PLATELET COUNT, AUTOMATED 409 10^3/uL (150-450); RED BLOOD COUNT 3.38 10^6/uL (4.30-6.10); RED CELL DISTRIBUTION WIDTH 14.4 % (11.5-14.5); WHITE BLOOD COUNT 7.6 10^3/uL (4.0-10.0)
[2017-09-27 05:28] LABS: ERYTHROCYTE SEDIMENTATION RATE > 140 mm/hr (0-20)
[2017-09-27 05:39] LABS: ANION GAP 6 MEQ/L (8-16); BLOOD UREA NITROGEN 13 MG/DL (7-18); CALCIUM LEVEL 7.9 MG/DL (8.8-10.2); CARBON DIOXIDE LEVEL 33 MEQ/L (21-32); CHLORIDE LEVEL 96 MEQ/L (98-107); CREATININE FOR GFR 1.17 MG/DL (0.70-1.30); GLOMERULAR FILTRATION RATE > 60.0 (>35); GLUCOSE, FASTING 140 MG/DL (70-100); POTASSIUM SERUM 3.2 MEQ/L (3.5-5.1); SODIUM LEVEL 135 MEQ/L (136-145)
[2017-09-27 05:40] LABS: NT-PRO BNP 8261 PG/ML (<450)
[2017-09-27 05:40] LABS: MAGNESIUM LEVEL 1.7 MG/DL (1.8-2.4)
[2017-09-27] MEDS: HumaLOG INSULIN (NovoLOG) PER UNIT SC (08:40)
[2017-09-27] MEDS: MIRALAX *UNIT DOSE* 17GM PACKET PO ×2 (09:00→20:31)
[2017-09-27] MEDS: SENOKOT S TAB PO ×2 (09:00→20:38)
[2017-09-27] MEDS: HEPARIN SOD (PORCINE) 5000 UNITS/ML VIAL SQ ×2 (09:48→20:38)
[2017-09-27 11:38] LABS: BEDSIDE GLUCOSE 143 MG/DL (83-110)
[2017-09-27] MEDS: MAGNESIUM OXIDE 400 MG TAB (MAG-OX) PO ×2 (13:46→20:39)
[2017-09-27] MEDS: POTASSIUM CHLORIDE 10 MEQ SR TABLET PO ×2 (13:47→20:39)
[2017-09-27] MEDS: cefTRIAXone SOD 2 GM in D5W MINI-BAG PLUS 50 ML IV (13:49)
[2017-09-27 15:10] LABS: QUANTIFERON GOLD TB Negative (Negative); TB Test (QFT) Antigen 0.02 IU/mL (.); TB Test (QFT) Antigen Minus Ni <0.01 IU/mL (.); TB Test (QFT) Mitogen 4.62 IU/mL (.); TB Test (QFT) Nil 0.03 IU/mL (.)
[2017-09-27] MEDS: PRAVASTATIN 20 MG TAB PO (20:38)
[2017-09-27] MEDS: BISOPROLOL FUMARATE 5 MG TAB PO (20:39)
[2017-09-28 03:00] LABS: VANCOMYCIN LEVEL TROUGH 26.6 UG/ML (10.0-20.0)
[2017-09-28] MEDS: NORCO, ANEXSIA 5/325MG TABLET (HYDROcodone/ACETAMINOPHEN) PO ×3 (05:05→20:43)
[2017-09-28] MEDS: SODIUM CHLORIDE 0.9% INJ 10 ML SYR IV ×3 (05:05→22:03)
[2017-09-28 05:25] LABS: BASO # 0.1 10^3/uL (0.0-0.2); BASO % 0.6 % (0.0-1.0); EOS # 0.3 10^3/uL (0.0-0.50); EOS % 3.2 % (0.0-3.0); HEMATOCRIT 29.1 % (42.0-52.0); HEMOGLOBIN 9.4 g/dl (13.5-17.5); IMMATURE GRANULOCYTE % 0.6 % (0-3.0); LYMPH # 0.6 10^3/uL (1.5-4.5); LYMPH % 7.6 % (24.0-44.0); MEAN CORPUSCULAR HEMOGLOBIN 27.4 pg (27.0-33.0); MEAN CORPUSCULAR HGB CONC 32.3 g/dl (32.0-36.5); MEAN CORPUSCULAR VOLUME 84.8 fl (80.0-96.0); MONO # 0.7 10^3/uL (0.0-0.8); MONO % 8.5 % (0.0-5.0); NEUTROPHILS # 6.6 10^3/uL (1.8-7.7); NEUTROPHILS % 79.5 % (36.0-66.0); PLATELET COUNT, AUTOMATED 449 10^3/uL (150-450); RED BLOOD COUNT 3.43 10^6/uL (4.30-6.10); RED CELL DISTRIBUTION WIDTH 14.6 % (11.5-14.5); WHITE BLOOD COUNT 8.2 10^3/uL (4.0-10.0)
[2017-09-28 05:40] LABS: ANION GAP 6 MEQ/L (8-16); BLOOD UREA NITROGEN 17 MG/DL (7-18); CALCIUM LEVEL 7.8 MG/DL (8.8-10.2); CARBON DIOXIDE LEVEL 32 MEQ/L (21-32); CHLORIDE LEVEL 99 MEQ/L (98-107); CREATININE FOR GFR 1.21 MG/DL (0.70-1.30); GLOMERULAR FILTRATION RATE > 60.0 (>35); GLUCOSE, FASTING 166 MG/DL (70-100); MAGNESIUM LEVEL 1.8 MG/DL (1.8-2.4); POTASSIUM SERUM 4.4 MEQ/L (3.5-5.1); SODIUM LEVEL 137 MEQ/L (136-145)
[2017-09-28] MEDS: HEPARIN SOD (PORCINE) 5000 UNITS/ML VIAL SQ ×2 (08:07→20:41)
[2017-09-28] MEDS: MIRALAX *UNIT DOSE* 17GM PACKET PO ×2 (08:07→20:21)
[2017-09-28] MEDS: SENOKOT S TAB PO ×2 (08:07→20:40)
[2017-09-28] MEDS: POTASSIUM CHLORIDE 10 MEQ SR TABLET PO ×2 (08:08→20:40)
[2017-09-28] MEDS: MAGNESIUM OXIDE 400 MG TAB (MAG-OX) PO ×2 (08:08→20:39)
[2017-09-28] MEDS: cefTRIAXone SOD 2 GM in D5W MINI-BAG PLUS 50 ML IV (14:47)
[2017-09-28] MEDS: PRAVASTATIN 20 MG TAB PO (20:40)
[2017-09-28] MEDS: BISOPROLOL FUMARATE 5 MG TAB PO (20:41)
[2017-09-28] MEDS: VANCOMYCIN HCL 1,000 MG, VIAL MATE ADAPTER 1 EACH in D5W 250 ML IV (20:42)
[2017-09-29] MEDS: SODIUM CHLORIDE 0.9% INJ 10 ML SYR IV ×4 (05:36→22:42)
[2017-09-29 05:44] LABS: BASO # 0.1 10^3/uL (0.0-0.2); BASO % 0.7 % (0.0-1.0); EOS # 0.3 10^3/uL (0.0-0.50); EOS % 3.6 % (0.0-3.0); HEMATOCRIT 29.6 % (42.0-52.0); HEMOGLOBIN 9.5 g/dl (13.5-17.5); IMMATURE GRANULOCYTE % 0.6 % (0-3.0); LYMPH # 0.9 10^3/uL (1.5-4.5); LYMPH % 10.6 % (24.0-44.0); MEAN CORPUSCULAR HEMOGLOBIN 27.5 pg (27.0-33.0); MEAN CORPUSCULAR HGB CONC 32.1 g/dl (32.0-36.5); MEAN CORPUSCULAR VOLUME 85.5 fl (80.0-96.0); MONO # 0.7 10^3/uL (0.0-0.8); MONO % 8.3 % (0.0-5.0); NEUTROPHILS # 6.4 10^3/uL (1.8-7.7); NEUTROPHILS % 76.2 % (36.0-66.0); PLATELET COUNT, AUTOMATED 443 10^3/uL (150-450); RED BLOOD COUNT 3.46 10^6/uL (4.30-6.10); RED CELL DISTRIBUTION WIDTH 14.6 % (11.5-14.5); WHITE BLOOD COUNT 8.3 10^3/uL (4.0-10.0)
[2017-09-29 06:12] LABS: ANION GAP 7 MEQ/L (8-16); BLOOD UREA NITROGEN 17 MG/DL (7-18); CALCIUM LEVEL 8.1 MG/DL (8.8-10.2); CARBON DIOXIDE LEVEL 30 MEQ/L (21-32); CHLORIDE LEVEL 99 MEQ/L (98-107); CREATININE FOR GFR 1.21 MG/DL (0.70-1.30); GLOMERULAR FILTRATION RATE > 60.0 (>35); GLUCOSE, FASTING 163 MG/DL (70-100); POTASSIUM SERUM 5.1 MEQ/L (3.5-5.1); SODIUM LEVEL 136 MEQ/L (136-145)
[2017-09-29] MEDS: SENOKOT S TAB PO ×2 (08:40→21:03)
[2017-09-29] MEDS: MAGNESIUM OXIDE 400 MG TAB (MAG-OX) PO ×2 (08:41→21:02)
[2017-09-29] MEDS: MIRALAX *UNIT DOSE* 17GM PACKET PO ×2 (08:41→21:02)
[2017-09-29] MEDS: HEPARIN SOD (PORCINE) 5000 UNITS/ML VIAL SQ ×2 (08:41→21:04)
[2017-09-29] MEDS: NORCO, ANEXSIA 5/325MG TABLET (HYDROcodone/ACETAMINOPHEN) PO ×2 (08:45→21:05)
[2017-09-29] MEDS: POTASSIUM CHLORIDE 10 MEQ SR TABLET PO (10:50)
[2017-09-29] MEDS: cefTRIAXone SOD 2 GM in D5W MINI-BAG PLUS 50 ML IV (15:08)
[2017-09-29] MEDS: PRAVASTATIN 20 MG TAB PO (21:03)
[2017-09-29] MEDS: BISOPROLOL FUMARATE 5 MG TAB PO (21:04)
[2017-09-29] MEDS: VANCOMYCIN HCL 1,000 MG, VIAL MATE ADAPTER 1 EACH in D5W 250 ML IV (21:04)
[2017-09-30] MEDS: SODIUM CHLORIDE 0.9% INJ 10 ML SYR IV ×4 (05:32→23:23)
[2017-09-30 05:47] LABS: BASO # 0.1 10^3/uL (0.0-0.2); BASO % 0.8 % (0.0-1.0); EOS # 0.3 10^3/uL (0.0-0.50); EOS % 3.7 % (0.0-3.0); HEMOGLOBIN 9.7 g/dl (13.5-17.5); IMMATURE GRANULOCYTE % 0.6 % (0-3.0); LYMPH # 0.9 10^3/uL (1.5-4.5); LYMPH % 9.6 % (24.0-44.0); MEAN CORPUSCULAR HEMOGLOBIN 27.8 pg (27.0-33.0); MEAN CORPUSCULAR HGB CONC 32.3 g/dl (32.0-36.5); MONO # 0.8 10^3/uL (0.0-0.8); MONO % 8.4 % (0.0-5.0); NEUTROPHILS # 6.9 10^3/uL (1.8-7.7); NEUTROPHILS % 76.9 % (36.0-66.0); PLATELET COUNT, AUTOMATED 432 10^3/uL (150-450); RED BLOOD COUNT 3.49 10^6/uL (4.30-6.10); RED CELL DISTRIBUTION WIDTH 14.6 % (11.5-14.5)
[2017-09-30 06:11] LABS: ANION GAP 7 MEQ/L (8-16); BLOOD UREA NITROGEN 19 MG/DL (7-18); CALCIUM LEVEL 8.1 MG/DL (8.8-10.2); CARBON DIOXIDE LEVEL 32 MEQ/L (21-32); CHLORIDE LEVEL 96 MEQ/L (98-107); GLOMERULAR FILTRATION RATE > 60.0 (>35); GLUCOSE, FASTING 187 MG/DL (70-100); POTASSIUM SERUM 4.9 MEQ/L (3.5-5.1); SODIUM LEVEL 135 MEQ/L (136-145)
[2017-09-30] MEDS: MIRALAX *UNIT DOSE* 17GM PACKET PO ×2 (09:00→20:22)
[2017-09-30] MEDS: NORCO, ANEXSIA 5/325MG TABLET (HYDROcodone/ACETAMINOPHEN) PO ×2 (09:01→20:24)
[2017-09-30] MEDS: MAGNESIUM OXIDE 400 MG TAB (MAG-OX) PO ×2 (09:02→20:22)
[2017-09-30] MEDS: HEPARIN SOD (PORCINE) 5000 UNITS/ML VIAL SQ ×2 (09:02→20:23)
[2017-09-30] MEDS: SENOKOT S TAB PO ×2 (09:02→20:22)
[2017-09-30] MEDS: OMEPRAZOLE 20 MG CAP PO (13:05)
[2017-09-30] MEDS: cefTRIAXone SOD 2 GM in D5W MINI-BAG PLUS 50 ML IV (13:06)
[2017-09-30] MEDS: PRAVASTATIN 20 MG TAB PO (20:22)
[2017-09-30] MEDS: BISOPROLOL FUMARATE 5 MG TAB PO (20:23)
[2017-09-30 20:45] LABS: VANCOMYCIN LEVEL TROUGH 16.8 UG/ML (10.0-20.0)
[2017-09-30] MEDS: VANCOMYCIN HCL 1,000 MG, VIAL MATE ADAPTER 1 EACH in D5W 250 ML IV (21:40)
[2017-09-30] MEDS: BISACODYL 10 MG SUPP PR (21:40)
[2017-10-01] MEDS: SODIUM CHLORIDE 0.9% INJ 10 ML SYR IV ×2 (05:20→15:26)
[2017-10-01 05:47] LABS: BASO # 0.1 10^3/uL (0.0-0.2); EOS # 0.3 10^3/uL (0.0-0.50); EOS % 3.7 % (0.0-3.0); HEMATOCRIT 29.1 % (42.0-52.0); HEMOGLOBIN 9.6 g/dl (13.5-17.5); IMMATURE GRANULOCYTE % 0.5 % (0-3.0); LYMPH # 0.7 10^3/uL (1.5-4.5); LYMPH % 8.3 % (24.0-44.0); MEAN CORPUSCULAR HEMOGLOBIN 27.6 pg (27.0-33.0); MEAN CORPUSCULAR VOLUME 83.6 fl (80.0-96.0); MONO # 0.7 10^3/uL (0.0-0.8); MONO % 7.9 % (0.0-5.0); NEUTROPHILS # 6.8 10^3/uL (1.8-7.7); NEUTROPHILS % 78.6 % (36.0-66.0); PLATELET COUNT, AUTOMATED 452 10^3/uL (150-450); RED BLOOD COUNT 3.48 10^6/uL (4.30-6.10); RED CELL DISTRIBUTION WIDTH 14.7 % (11.5-14.5); WHITE BLOOD COUNT 8.7 10^3/uL (4.0-10.0)
[2017-10-01 06:01] LABS: ANION GAP 9 MEQ/L (8-16); BLOOD UREA NITROGEN 18 MG/DL (7-18); CALCIUM LEVEL 8.3 MG/DL (8.8-10.2); CARBON DIOXIDE LEVEL 32 MEQ/L (21-32); CHLORIDE LEVEL 94 MEQ/L (98-107); CREATININE FOR GFR 1.26 MG/DL (0.70-1.30); GLOMERULAR FILTRATION RATE 58.6 (>35); GLUCOSE, FASTING 239 MG/DL (70-100); POTASSIUM SERUM 4.6 MEQ/L (3.5-5.1); SODIUM LEVEL 135 MEQ/L (136-145)
[2017-10-01] MEDS: MIRALAX *UNIT DOSE* 17GM PACKET PO ×2 (09:00→21:32)
[2017-10-01] MEDS: SENOKOT S TAB PO ×2 (09:30→21:31)
[2017-10-01] MEDS: OMEPRAZOLE 20 MG CAP PO (09:30)
[2017-10-01] MEDS: HEPARIN SOD (PORCINE) 5000 UNITS/ML VIAL SQ ×2 (09:31→21:31)
[2017-10-01] MEDS: MAGNESIUM OXIDE 400 MG TAB (MAG-OX) PO ×2 (09:31→21:32)
[2017-10-01] MEDS: NORCO, ANEXSIA 5/325MG TABLET (HYDROcodone/ACETAMINOPHEN) PO ×2 (10:58→18:57)
[2017-10-01] MEDS: cefTRIAXone SOD 2 GM in D5W MINI-BAG PLUS 50 ML IV (14:17)
[2017-10-01] MEDS: VANCOMYCIN HCL 1,000 MG, VIAL MATE ADAPTER 1 EACH in D5W 250 ML IV (21:29)
[2017-10-01] MEDS: PRAVASTATIN 20 MG TAB PO (21:31)
[2017-10-01] MEDS: BISOPROLOL FUMARATE 5 MG TAB PO (21:31)
[2017-10-02] MEDS: SODIUM CHLORIDE 0.9% INJ 10 ML SYR IV ×4 (05:25→22:00)
[2017-10-02 05:57] LABS: HEMATOCRIT 30.4 % (42.0-52.0); HEMOGLOBIN 9.8 g/dl (13.5-17.5); MEAN CORPUSCULAR HEMOGLOBIN 27.3 pg (27.0-33.0); MEAN CORPUSCULAR HGB CONC 32.2 g/dl (32.0-36.5); MEAN CORPUSCULAR VOLUME 84.7 fl (80.0-96.0); PLATELET COUNT, AUTOMATED 458 10^3/uL (150-450); RED BLOOD COUNT 3.59 10^6/uL (4.30-6.10); RED CELL DISTRIBUTION WIDTH 14.6 % (11.5-14.5); WHITE BLOOD COUNT 7.4 10^3/uL (4.0-10.0)
[2017-10-02 06:29] LABS: ALBUMIN 2.1 GM/DL (3.2-5.2); ALBUMIN/GLOBULIN RATIO 0.47 (1.00-1.93); ALKALINE PHOSPHATASE 138 U/L (45-117); ALT/SGPT 55 U/L (12-78); ANION GAP 7 MEQ/L (8-16); AST/SGOT 33 U/L (7-37); BILIRUBIN,TOTAL 0.3 MG/DL (0.2-1.0); BLOOD UREA NITROGEN 16 MG/DL (7-18); C REACTIVE PROTEIN QUANTITATIV 8.31 MG/DL (0.00-0.30); CALCIUM LEVEL 8.6 MG/DL (8.8-10.2); CARBON DIOXIDE LEVEL 31 MEQ/L (21-32); CHLORIDE LEVEL 96 MEQ/L (98-107); CREATININE FOR GFR 1.21 MG/DL (0.70-1.30); GLOMERULAR FILTRATION RATE > 60.0 (>35); GLUCOSE, FASTING 228 MG/DL (70-100); POTASSIUM SERUM 4.3 MEQ/L (3.5-5.1); SODIUM LEVEL 134 MEQ/L (136-145); TOTAL PROTEIN 6.6 GM/DL (6.4-8.2)
[2017-10-02] MEDS: NORCO, ANEXSIA 5/325MG TABLET (HYDROcodone/ACETAMINOPHEN) PO ×3 (08:20→20:50)
[2017-10-02] MEDS: HEPARIN SOD (PORCINE) 5000 UNITS/ML VIAL SQ ×2 (09:07→20:48)
[2017-10-02] MEDS: MIRALAX *UNIT DOSE* 17GM PACKET PO ×2 (09:07→20:45)
[2017-10-02] MEDS: MAGNESIUM OXIDE 400 MG TAB (MAG-OX) PO ×2 (09:09→20:49)
[2017-10-02] MEDS: SENOKOT S TAB PO ×2 (09:09→20:45)
[2017-10-02] MEDS: OMEPRAZOLE 20 MG CAP PO (09:09)
[2017-10-02] MEDS: cefTRIAXone SOD 2 GM in D5W MINI-BAG PLUS 50 ML IV (14:23)
[2017-10-02] MEDS: BISOPROLOL FUMARATE 5 MG TAB PO (20:45)
[2017-10-02] MEDS: PRAVASTATIN 20 MG TAB PO (20:47)
[2017-10-02] MEDS: VANCOMYCIN HCL 1,000 MG, VIAL MATE ADAPTER 1 EACH in D5W 250 ML IV (20:49)
[2017-10-03] MEDS: SODIUM CHLORIDE 0.9% INJ 10 ML SYR IV (05:33)
[2017-10-03] MEDS: MAGNESIUM OXIDE 400 MG TAB (MAG-OX) PO (07:46)
[2017-10-03] MEDS: SENOKOT S TAB PO ×2 (07:46→07:52)
[2017-10-03] MEDS: MIRALAX *UNIT DOSE* 17GM PACKET PO ×2 (07:46→07:53)
[2017-10-03] MEDS: HEPARIN SOD (PORCINE) 5000 UNITS/ML VIAL SQ (07:46)
[2017-10-03] MEDS: OMEPRAZOLE 20 MG CAP PO (07:46)
[2017-10-03] MEDS: NORCO, ANEXSIA 5/325MG TABLET (HYDROcodone/ACETAMINOPHEN) PO (08:59)
[2017-10-03] MEDS: cefTRIAXone SOD 2 GM in D5W MINI-BAG PLUS 50 ML IV (13:17)
[2017-10-03] MEDS: VANCOMYCIN HCL 1,000 MG, VIAL MATE ADAPTER 1 EACH in D5W 250 ML IV (14:37)
== END 2017-10-03 16:00 | disposition home or self-care (01) | DRG 478 ==
LOC: M MSPAV 10:13
PROC: 0Q903ZX Drainage of Lumbar Vertebra, Percutaneous Approach, Diagnostic (ICD-10-PCS; principal; 2017-09-25)
PROC: 02HV33Z Insertion of Infusion Device into Superior Vena Cava, Percutaneous Approach (ICD-10-PCS; 2017-09-25)
DX: M46.46 Discitis, unspecified, lumbar region (principal); M46.26 Osteomyelitis of vertebra, lumbar region; I12.9 Hypertensive chronic kidney disease with stage 1 through stage 4 chronic kidney disease, or unspecified chronic kidney disease; E11.40 Type 2 diabetes mellitus with diabetic neuropathy, unspecified; E11.22 Type 2 diabetes mellitus with diabetic chronic kidney disease; R94.5 Abnormal results of liver function studies; I25.10 Atherosclerotic heart disease of native coronary artery without angina pectoris; E78.5 Hyperlipidemia, unspecified; N18.3 Chronic kidney disease, stage 3 (moderate); E53.8 Deficiency of other specified B group vitamins; D50.9 Iron deficiency anemia, unspecified; Z88.5 Allergy status to narcotic agent; Z88.8 Allergy status to other drugs, medicaments and biological substances; Z95.1 Presence of aortocoronary bypass graft; Z87.442 Personal history of urinary calculi; I25.2 Old myocardial infarction; Z79.82 Long term (current) use of aspirin; Z79.4 Long term (current) use of insulin; Z79.899 Other long term (current) drug therapy

== ENCOUNTER → 2017-10-06 | Outpatient (REF) | payer MEDICARE ==
[2017-10-06 16:06] LABS: BASO # 0.1 10^3/uL (0.0-0.2); BASO % 0.5 % (0.0-1.0); EOS % 0.2 % (0.0-3.0); HEMATOCRIT 32.1 % (42.0-52.0); HEMOGLOBIN 10.3 g/dl (13.5-17.5); IMMATURE GRANULOCYTE % 0.5 % (0-3.0); LYMPH # 0.6 10^3/uL (1.5-4.5); LYMPH % 4.5 % (24.0-44.0); MEAN CORPUSCULAR HEMOGLOBIN 28.1 pg (27.0-33.0); MEAN CORPUSCULAR HGB CONC 32.1 g/dl (32.0-36.5); MEAN CORPUSCULAR VOLUME 87.5 fl (80.0-96.0); MONO # 0.7 10^3/uL (0.0-0.8); MONO % 5.7 % (0.0-5.0); NEUTROPHILS % 88.6 % (36.0-66.0); PLATELET COUNT, AUTOMATED 460 10^3/uL (150-450); RED BLOOD COUNT 3.67 10^6/uL (4.30-6.10); RED CELL DISTRIBUTION WIDTH 14.7 % (11.5-14.5); WHITE BLOOD COUNT 12.4 10^3/uL (4.0-10.0)
[2017-10-06 16:35] LABS: ERYTHROCYTE SEDIMENTATION RATE 90 mm/hr (0-20)
[2017-10-06 16:48] LABS: ALBUMIN 2.4 GM/DL (3.2-5.2); ALKALINE PHOSPHATASE 164 U/L (45-117); ALT/SGPT 81 U/L (12-78); ANION GAP 11 MEQ/L (8-16); AST/SGOT 55 U/L (7-37); BILIRUBIN,TOTAL 0.3 MG/DL (0.2-1.0); BLOOD UREA NITROGEN 24 MG/DL (7-18); CALCIUM LEVEL 8.4 MG/DL (8.8-10.2); CARBON DIOXIDE LEVEL 27 MEQ/L (21-32); CHLORIDE LEVEL 92 MEQ/L (98-107); CREATININE FOR GFR 1.65 MG/DL (0.70-1.30); GLOMERULAR FILTRATION RATE 42.9 (>35); POTASSIUM SERUM 4.8 MEQ/L (3.5-5.1); SODIUM LEVEL 130 MEQ/L (136-145); TOTAL PROTEIN 6.4 GM/DL (6.4-8.2); VANCOMYCIN LEVEL TROUGH 16.9 UG/ML (10.0-20.0)
[2017-10-06 16:51] LABS: GLUCOSE, FASTING 492 MG/DL (70-100)
== END ==
LOC: M LAB REF 15:49
DX: M86.18 Other acute osteomyelitis, other site (principal); M46.46 Discitis, unspecified, lumbar region
CPT/HCPCS: 80053

== ENCOUNTER → 2017-10-13 | Outpatient (REF) | payer MEDICARE ==
[2017-10-13 13:09] LABS: BASO # 0.1 10^3/uL (0.0-0.2); EOS # 0.3 10^3/uL (0.0-0.50); EOS % 2.8 % (0.0-3.0); HEMATOCRIT 32.4 % (42.0-52.0); HEMOGLOBIN 10.2 g/dl (13.5-17.5); IMMATURE GRANULOCYTE % 0.5 % (0-3.0); LYMPH # 0.4 10^3/uL (1.5-4.5); LYMPH % 4.6 % (24.0-44.0); MEAN CORPUSCULAR HEMOGLOBIN 27.6 pg (27.0-33.0); MEAN CORPUSCULAR HGB CONC 31.5 g/dl (32.0-36.5); MEAN CORPUSCULAR VOLUME 87.8 fl (80.0-96.0); MONO # 0.6 10^3/uL (0.0-0.8); MONO % 6.1 % (0.0-5.0); PLATELET COUNT, AUTOMATED 394 10^3/uL (150-450); RED BLOOD COUNT 3.69 10^6/uL (4.30-6.10); WHITE BLOOD COUNT 9.4 10^3/uL (4.0-10.0)
[2017-10-13 13:51] LABS: ERYTHROCYTE SEDIMENTATION RATE 91 mm/hr (0-20)
[2017-10-13 14:01] LABS: ALBUMIN 2.5 GM/DL (3.2-5.2); ALBUMIN/GLOBULIN RATIO 0.64 (1.00-1.93); ALKALINE PHOSPHATASE 154 U/L (45-117); ALT/SGPT 91 U/L (12-78); ANION GAP 11 MEQ/L (8-16); AST/SGOT 58 U/L (7-37); BILIRUBIN,TOTAL 0.4 MG/DL (0.2-1.0); BLOOD UREA NITROGEN 24 MG/DL (7-18); C REACTIVE PROTEIN QUANTITATIV 5.39 MG/DL (0.00-0.30); CALCIUM LEVEL 8.4 MG/DL (8.8-10.2); CARBON DIOXIDE LEVEL 24 MEQ/L (21-32); CHLORIDE LEVEL 97 MEQ/L (98-107); CREATININE FOR GFR 1.59 MG/DL (0.70-1.30); GLOMERULAR FILTRATION RATE 44.8 (>35); GLUCOSE, FASTING 352 MG/DL (70-100); SODIUM LEVEL 132 MEQ/L (136-145); TOTAL PROTEIN 6.4 GM/DL (6.4-8.2); VANCOMYCIN LEVEL TROUGH 20.1 UG/ML (10.0-20.0)
[2017-10-13 14:04] LABS: POTASSIUM SERUM 5.2 MEQ/L (3.5-5.1)
== END ==
LOC: M LAB REF 12:41
DX: M86.18 Other acute osteomyelitis, other site (principal)
CPT/HCPCS: 80053

== ENCOUNTER → 2017-10-15 | Outpatient (CLI) | payer MEDICARE ==
[~2017-10-15] MED LIST changes: -ACETAMINOPHEN 500 MG TAB PO; -DEXTROSE 50% 50 ML SYRINGE IV; -GLUCAGON FOR INJ 1 MG VIAL (J1610) SC; -GLUCOSE 4 GM CHEW TABLET PO; -HEPARIN SOD (PORCINE) 5000 UNITS/ML VIAL SQ; +PROHANCE 279.3MG/ML 5ML VIAL (A9576) As Ordered
== END ==
LOC: M RAD 12:25
DX: M46.26 Osteomyelitis of vertebra, lumbar region (principal); M48.061 Spinal stenosis, lumbar region without neurogenic claudication; M51.26 Other intervertebral disc displacement, lumbar region; M51.06 Intervertebral disc disorders with myelopathy, lumbar region
CPT/HCPCS: A9576

== ENCOUNTER → 2017-10-20 | Outpatient (REF) | payer MEDICARE ==
[2017-10-20 13:05] LABS: BASO # 0.1 10^3/uL (0.0-0.2); BASO % 0.9 % (0.0-1.0); EOS # 0.3 10^3/uL (0.0-0.50); EOS % 2.9 % (0.0-3.0); HEMATOCRIT 29.8 % (42.0-52.0); HEMOGLOBIN 9.3 g/dl (13.5-17.5); IMMATURE GRANULOCYTE % 0.6 % (0-3.0); LYMPH # 0.4 10^3/uL (1.5-4.5); MEAN CORPUSCULAR HEMOGLOBIN 27.2 pg (27.0-33.0); MEAN CORPUSCULAR HGB CONC 31.2 g/dl (32.0-36.5); MEAN CORPUSCULAR VOLUME 87.1 fl (80.0-96.0); MONO # 0.5 10^3/uL (0.0-0.8); NEUTROPHILS # 8.7 10^3/uL (1.8-7.7); NEUTROPHILS % 86.6 % (36.0-66.0); PLATELET COUNT, AUTOMATED 338 10^3/uL (150-450); RED BLOOD COUNT 3.42 10^6/uL (4.30-6.10); RED CELL DISTRIBUTION WIDTH 15.2 % (11.5-14.5)
[2017-10-20 13:27] LABS: ALBUMIN 2.5 GM/DL (3.2-5.2); ALBUMIN/GLOBULIN RATIO 0.66 (1.00-1.93); ALKALINE PHOSPHATASE 145 U/L (45-117); ALT/SGPT 104 U/L (12-78); ANION GAP 8 MEQ/L (8-16); AST/SGOT 131 U/L (7-37); BILIRUBIN,TOTAL 0.3 MG/DL (0.2-1.0); BLOOD UREA NITROGEN 33 MG/DL (7-18); CALCIUM LEVEL 8.2 MG/DL (8.8-10.2); CARBON DIOXIDE LEVEL 25 MEQ/L (21-32); CHLORIDE LEVEL 101 MEQ/L (98-107); GLOMERULAR FILTRATION RATE 44.5 (>35); GLUCOSE, FASTING 358 MG/DL (70-100); SODIUM LEVEL 134 MEQ/L (136-145); TOTAL PROTEIN 6.3 GM/DL (6.4-8.2); VANCOMYCIN LEVEL TROUGH 16.5 UG/ML (10.0-20.0)
[2017-10-20 13:33] LABS: POTASSIUM SERUM 5.2 MEQ/L (3.5-5.1)
[2017-10-20 14:12] LABS: ERYTHROCYTE SEDIMENTATION RATE 90 mm/hr (0-20)
== END ==
LOC: M LAB REF 12:14
DX: M86.18 Other acute osteomyelitis, other site (principal); M46.46 Discitis, unspecified, lumbar region
CPT/HCPCS: 80053

== ENCOUNTER → 2017-10-27 | Outpatient (REF) | payer MEDICARE ==
[2017-10-27 11:05] LABS: BASO # 0.1 10^3/uL (0.0-0.2); BASO % 0.8 % (0.0-1.0); EOS # 0.2 10^3/uL (0.0-0.50); HEMATOCRIT 31.6 % (42.0-52.0); HEMOGLOBIN 9.8 g/dl (13.5-17.5); IMMATURE GRANULOCYTE % 0.4 % (0-3.0); LYMPH # 0.7 10^3/uL (1.5-4.5); LYMPH % 6.7 % (24.0-44.0); MEAN CORPUSCULAR HEMOGLOBIN 27.2 pg (27.0-33.0); MEAN CORPUSCULAR VOLUME 87.8 fl (80.0-96.0); MONO # 0.7 10^3/uL (0.0-0.8); MONO % 7.3 % (0.0-5.0); NEUTROPHILS # 8.2 10^3/uL (1.8-7.7); NEUTROPHILS % 82.8 % (36.0-66.0); PLATELET COUNT, AUTOMATED 394 10^3/uL (150-450); RED CELL DISTRIBUTION WIDTH 15.1 % (11.5-14.5); WHITE BLOOD COUNT 9.9 10^3/uL (4.0-10.0)
[2017-10-27 11:15] LABS: ALBUMIN 2.8 GM/DL (3.2-5.2); ALKALINE PHOSPHATASE 126 U/L (45-117); ALT/SGPT 58 U/L (12-78); ANION GAP 10 MEQ/L (8-16); AST/SGOT 46 U/L (7-37); BILIRUBIN,TOTAL 0.5 MG/DL (0.2-1.0); BLOOD UREA NITROGEN 21 MG/DL (7-18); C REACTIVE PROTEIN QUANTITATIV 5.52 MG/DL (0.00-0.30); CALCIUM LEVEL 8.5 MG/DL (8.8-10.2); CARBON DIOXIDE LEVEL 23 MEQ/L (21-32); CHLORIDE LEVEL 108 MEQ/L (98-107); CREATININE FOR GFR 2.13 MG/DL (0.70-1.30); GLUCOSE, FASTING 139 MG/DL (70-100); POTASSIUM SERUM 4.6 MEQ/L (3.5-5.1); SODIUM LEVEL 141 MEQ/L (136-145); TOTAL PROTEIN 6.8 GM/DL (6.4-8.2)
[2017-10-27 11:26] LABS: ERYTHROCYTE SEDIMENTATION RATE 104 mm/hr (0-20)
[2017-10-28 14:46] LABS: VANCOMYCIN LEVEL TROUGH 20.8 UG/ML (10.0-20.0)
== END ==
LOC: M LAB REF 10:50
DX: M46.26 Osteomyelitis of vertebra, lumbar region (principal); R94.5 Abnormal results of liver function studies
CPT/HCPCS: 80053

== ENCOUNTER 2017-11-05 10:20 | Emergency (ER) | payer MEDICARE ==
[2017-11-05] MEDS ORDERED: SODIUM CHLORIDE 0.9% INJ 10 ML SYR IV ×2 (12:30→18:00)
[2017-11-05 12:55] LABS: BASO # 0.1 10^3/uL (0.0-0.2); BASO % 0.9 % (0.0-1.0); EOS # 0.2 10^3/uL (0.0-0.50); EOS % 1.7 % (0.0-3.0); HEMATOCRIT 33.2 % (42.0-52.0); HEMOGLOBIN 10.5 g/dl (13.5-17.5); IMMATURE GRANULOCYTE % 0.3 % (0-3.0); LYMPH # 0.7 10^3/uL (1.5-4.5); LYMPH % 7.8 % (24.0-44.0); MEAN CORPUSCULAR HEMOGLOBIN 27.8 pg (27.0-33.0); MEAN CORPUSCULAR HGB CONC 31.6 g/dl (32.0-36.5); MEAN CORPUSCULAR VOLUME 87.8 fl (80.0-96.0); MONO # 0.6 10^3/uL (0.0-0.8); MONO % 6.1 % (0.0-5.0); NEUTROPHILS # 7.4 10^3/uL (1.8-7.7); NEUTROPHILS % 83.2 % (36.0-66.0); PLATELET COUNT, AUTOMATED 365 10^3/uL (150-450); RED BLOOD COUNT 3.78 10^6/uL (4.30-6.10); RED CELL DISTRIBUTION WIDTH 15.9 % (11.5-14.5)
== END 2017-11-05 12:45 | disposition home or self-care (01) ==
LOC: M ED 10:20
DX: T82.898A Other specified complication of vascular prosthetic devices, implants and grafts, initial encounter (principal); I25.10 Atherosclerotic heart disease of native coronary artery without angina pectoris; I25.2 Old myocardial infarction; E11.9 Type 2 diabetes mellitus without complications; E78.70 Disorder of bile acid and cholesterol metabolism, unspecified; K21.9 Gastro-esophageal reflux disease without esophagitis; Z95.1 Presence of aortocoronary bypass graft; Z88.5 Allergy status to narcotic agent; Z88.8 Allergy status to other drugs, medicaments and biological substances; Z79.4 Long term (current) use of insulin; Z79.899 Other long term (current) drug therapy
CPT/HCPCS: 85025

== ENCOUNTER → 2017-11-10 | Outpatient (REF) | payer MEDICARE ==
[2017-11-10 19:28] LABS: BASO # 0.1 10^3/uL (0.0-0.2); BASO % 0.5 % (0.0-1.0); EOS % 0.3 % (0.0-3.0); HEMATOCRIT 35.2 % (42.0-52.0); HEMOGLOBIN 10.8 g/dl (13.5-17.5); IMMATURE GRANULOCYTE % 0.2 % (0-3.0); LYMPH # 0.6 10^3/uL (1.5-4.5); LYMPH % 6.6 % (24.0-44.0); MEAN CORPUSCULAR HEMOGLOBIN 27.3 pg (27.0-33.0); MEAN CORPUSCULAR HGB CONC 30.7 g/dl (32.0-36.5); MEAN CORPUSCULAR VOLUME 88.9 fl (80.0-96.0); MONO # 0.4 10^3/uL (0.0-0.8); MONO % 4.6 % (0.0-5.0); NEUTROPHILS # 8.2 10^3/uL (1.8-7.7); NEUTROPHILS % 87.8 % (36.0-66.0); PLATELET COUNT, AUTOMATED 335 10^3/uL (150-450); RED BLOOD COUNT 3.96 10^6/uL (4.30-6.10); WHITE BLOOD COUNT 9.3 10^3/uL (4.0-10.0)
[2017-11-10 20:25] LABS: ERYTHROCYTE SEDIMENTATION RATE 61 mm/hr (0-20)
[2017-11-10 22:46] LABS: ALBUMIN 3.1 GM/DL (3.2-5.2); ALKALINE PHOSPHATASE 129 U/L (45-117); ALT/SGPT 18 U/L (12-78); ANION GAP 11 MEQ/L (8-16); AST/SGOT 20 U/L (7-37); BILIRUBIN,TOTAL 0.4 MG/DL (0.2-1.0); BLOOD UREA NITROGEN 24 MG/DL (7-18); C REACTIVE PROTEIN QUANTITATIV 3.29 MG/DL (0.00-0.30); CALCIUM LEVEL 9.1 MG/DL (8.8-10.2); CARBON DIOXIDE LEVEL 23 MEQ/L (21-32); CHLORIDE LEVEL 101 MEQ/L (98-107); CREATININE FOR GFR 1.89 MG/DL (0.70-1.30); GLOMERULAR FILTRATION RATE 36.7 (>35); SODIUM LEVEL 135 MEQ/L (136-145); TOTAL PROTEIN 7.8 GM/DL (6.4-8.2)
[2017-11-10 23:18] LABS: ALBUMIN/GLOBULIN RATIO 0.66 (1.00-1.93)
[2017-11-11] LABS: GLUCOSE, FASTING 251 MG/DL (70-100)
== END ==
LOC: M LAB REF 17:57
DX: M46.26 Osteomyelitis of vertebra, lumbar region (principal)
CPT/HCPCS: 80053

== ENCOUNTER 2017-11-11 13:10 | Emergency (ER) | payer MEDICARE ==
[2017-11-11 14:57] LABS: BASO % 0.5 % (0.0-1.0); EOS % 0.1 % (0.0-3.0); HEMATOCRIT 30.8 % (42.0-52.0); HEMOGLOBIN 10.1 g/dl (13.5-17.5); IMMATURE GRANULOCYTE % 1.1 % (0-3.0); LYMPH # 0.6 10^3/uL (1.5-4.5); MEAN CORPUSCULAR HEMOGLOBIN 27.6 pg (27.0-33.0); MEAN CORPUSCULAR HGB CONC 32.8 g/dl (32.0-36.5); MEAN CORPUSCULAR VOLUME 84.2 fl (80.0-96.0); MONO # 0.5 10^3/uL (0.0-0.8); MONO % 6.2 % (0.0-5.0); NEUTROPHILS # 7.3 10^3/uL (1.8-7.7); NEUTROPHILS % 85.1 % (36.0-66.0); PLATELET COUNT, AUTOMATED 326 10^3/uL (150-450); RED BLOOD COUNT 3.66 10^6/uL (4.30-6.10); RED CELL DISTRIBUTION WIDTH 15.6 % (11.5-14.5); WHITE BLOOD COUNT 8.6 10^3/uL (4.0-10.0)
[2017-11-11 15:10] LABS: ANION GAP 9 MEQ/L (8-16); BLOOD UREA NITROGEN 22 MG/DL (7-18); C REACTIVE PROTEIN QUANTITATIV 2.21 MG/DL (0.00-0.30); CALCIUM LEVEL 9.3 MG/DL (8.8-10.2); CARBON DIOXIDE LEVEL 24 MEQ/L (21-32); CHLORIDE LEVEL 103 MEQ/L (98-107); CREATININE FOR GFR 1.77 MG/DL (0.70-1.30); GLOMERULAR FILTRATION RATE 39.6 (>35); GLUCOSE, FASTING 174 MG/DL (70-100); SODIUM LEVEL 136 MEQ/L (136-145)
[2017-11-11 15:56] LABS: ERYTHROCYTE SEDIMENTATION RATE 92 mm/hr (0-20)
== END 2017-11-11 17:15 | disposition home or self-care (01) ==
LOC: M ED 13:10
DX: M46.26 Osteomyelitis of vertebra, lumbar region (principal); I82.412 Acute embolism and thrombosis of left femoral vein; I11.9 Hypertensive heart disease without heart failure; I25.10 Atherosclerotic heart disease of native coronary artery without angina pectoris; E11.40 Type 2 diabetes mellitus with diabetic neuropathy, unspecified; K21.9 Gastro-esophageal reflux disease without esophagitis; I25.2 Old myocardial infarction; E78.9 Disorder of lipoprotein metabolism, unspecified; K57.92 Diverticulitis of intestine, part unspecified, without perforation or abscess without bleeding; N18.9 Chronic kidney disease, unspecified; D64.9 Anemia, unspecified; Z95.1 Presence of aortocoronary bypass graft; Z88.8 Allergy status to other drugs, medicaments and biological substances; Z88.5 Allergy status to narcotic agent; Z79.899 Other long term (current) drug therapy; Z79.82 Long term (current) use of aspirin; Z79.4 Long term (current) use of insulin
CPT/HCPCS: 72148

== ENCOUNTER → 2017-11-12 | Outpatient (CLI) | payer MEDICARE ==
[~2017-11-12] MED LIST changes: +ISOVUE-300 61% 50ML VIAL (Q9967) As Ordered; +LIDOCAINE 2% MDV 20 ML VIAL As Ordered; -PROHANCE 279.3MG/ML 5ML VIAL (A9576) As Ordered
== END | disposition home or self-care (01) ==
LOC: M IRPRO 16:14
DX: I82.402 Acute embolism and thrombosis of unspecified deep veins of left lower extremity (principal); M46.40 Discitis, unspecified, site unspecified; M86.10 Other acute osteomyelitis, unspecified site; I25.10 Atherosclerotic heart disease of native coronary artery without angina pectoris; Z95.1 Presence of aortocoronary bypass graft; E11.22 Type 2 diabetes mellitus with diabetic chronic kidney disease; I12.9 Hypertensive chronic kidney disease with stage 1 through stage 4 chronic kidney disease, or unspecified chronic kidney disease; N18.3 Chronic kidney disease, stage 3 (moderate); D64.9 Anemia, unspecified; K29.70 Gastritis, unspecified, without bleeding
CPT/HCPCS: 37191

== ENCOUNTER → 2017-11-17 | Outpatient (REF) | payer MEDICARE ==
[2017-11-17 14:57] LABS: BASO # 0.1 10^3/uL (0.0-0.2); BASO % 0.4 % (0.0-1.0); EOS % 0.3 % (0.0-3.0); HEMATOCRIT 35.1 % (42.0-52.0); HEMOGLOBIN 11.3 g/dl (13.5-17.5); IMMATURE GRANULOCYTE % 0.4 % (0-3.0); LYMPH # 0.6 10^3/uL (1.5-4.5); MEAN CORPUSCULAR HEMOGLOBIN 27.1 pg (27.0-33.0); MEAN CORPUSCULAR HGB CONC 32.2 g/dl (32.0-36.5); MEAN CORPUSCULAR VOLUME 84.2 fl (80.0-96.0); MONO # 0.7 10^3/uL (0.0-0.8); MONO % 5.7 % (0.0-5.0); NEUTROPHILS # 10.1 10^3/uL (1.8-7.7); NEUTROPHILS % 88.2 % (36.0-66.0); PLATELET COUNT, AUTOMATED 403 10^3/uL (150-450); RED BLOOD COUNT 4.17 10^6/uL (4.30-6.10); RED CELL DISTRIBUTION WIDTH 15.9 % (11.5-14.5); WHITE BLOOD COUNT 11.5 10^3/uL (4.0-10.0)
[2017-11-17 15:36] LABS: ALBUMIN 3.2 GM/DL (3.2-5.2); ALBUMIN/GLOBULIN RATIO 0.76 (1.00-1.93); ALKALINE PHOSPHATASE 123 U/L (45-117); ALT/SGPT 26 U/L (12-78); ANION GAP 14 MEQ/L (8-16); AST/SGOT 33 U/L (7-37); BILIRUBIN,TOTAL 0.5 MG/DL (0.2-1.0); BLOOD UREA NITROGEN 24 MG/DL (7-18); C REACTIVE PROTEIN QUANTITATIV 0.93 MG/DL (0.00-0.30); CALCIUM LEVEL 8.8 MG/DL (8.8-10.2); CARBON DIOXIDE LEVEL 24 MEQ/L (21-32); CHLORIDE LEVEL 97 MEQ/L (98-107); GLOMERULAR FILTRATION RATE 41.5 (>35); GLUCOSE, FASTING 224 MG/DL (70-100); POTASSIUM SERUM 3.8 MEQ/L (3.5-5.1); SODIUM LEVEL 135 MEQ/L (136-145); TOTAL PROTEIN 7.4 GM/DL (6.4-8.2)
[2017-11-17 15:42] LABS: ERYTHROCYTE SEDIMENTATION RATE 67 mm/hr (0-20)
== END ==
LOC: M LAB REF 12:45
DX: M46.26 Osteomyelitis of vertebra, lumbar region (principal); R94.5 Abnormal results of liver function studies
CPT/HCPCS: 80053

== ENCOUNTER → 2017-11-21 | Outpatient (CLI) | payer MEDICARE ==
[2017-11-21 12:33] LABS: HEMATOCRIT 38.6 % (42.0-52.0); HEMOGLOBIN 12.2 g/dl (13.5-17.5); MEAN CORPUSCULAR HEMOGLOBIN 27.2 pg (27.0-33.0); MEAN CORPUSCULAR HGB CONC 31.6 g/dl (32.0-36.5); PLATELET COUNT, AUTOMATED 388 10^3/uL (150-450); RED BLOOD COUNT 4.49 10^6/uL (4.30-6.10); RED CELL DISTRIBUTION WIDTH 15.8 % (11.5-14.5); RETIC HEMOGLOBIN EQUIVALENT 33.9 pg (24-36); RETICULOCYTE # 69.6 10^9/L (17-77); RETICULOCYTE % 1.6 % (0.5-1.5); WHITE BLOOD COUNT 9.7 10^3/uL (4.0-10.0)
[2017-11-21 13:02] LABS: ALBUMIN 3.2 GM/DL (3.2-5.2); ALBUMIN/GLOBULIN RATIO 0.73 (1.00-1.93); ALKALINE PHOSPHATASE 132 U/L (45-117); ALT/SGPT 26 U/L (12-78); ANION GAP 12 MEQ/L (8-16); AST/SGOT 31 U/L (7-37); BILIRUBIN,TOTAL 0.7 MG/DL (0.2-1.0); BLOOD UREA NITROGEN 23 MG/DL (7-18); CALCIUM LEVEL 9.1 MG/DL (8.8-10.2); CARBON DIOXIDE LEVEL 26 MEQ/L (21-32); CHLORIDE LEVEL 98 MEQ/L (98-107); CHOLESTEROL LEVEL 170 MG/DL (<200); CHOLESTEROL RISK RATIO 4.146 (<5); CREATININE FOR GFR 1.73 MG/DL (0.70-1.30); FERRITIN 178 NG/ML (26-388); GLOMERULAR FILTRATION RATE 40.7 (>35); GLUCOSE, FASTING 156 MG/DL (70-100); HDL CHOLESTEROL 41 MG/DL (>40); IRON (FE) 75 UG/DL (65-175); LDL CHOLESTEROL 94 MG/DL (<100); MAGNESIUM LEVEL 1.8 MG/DL (1.8-2.4); NON-HDL-C 129 MG/DL; PERCENT SATURATION 26.5 % (19.7-50.0); POTASSIUM SERUM 3.6 MEQ/L (3.5-5.1); PSA SCREENING 1.24 NG/ML (< 4.0); SODIUM LEVEL 136 MEQ/L (136-145); TOTAL IRON BINDING CAPACITY 283 UG/DL (250-450); TOTAL PROTEIN 7.6 GM/DL (6.4-8.2); TRIGLYCERIDES LEVEL 173 MG/DL (<150)
[2017-11-21 14:42] LABS: ESTIMATED AVERAGE GLUCOSE 171 MG/DL (60-110); HEMOGLOBIN A1c 7.6 %
== END ==
LOC: M WUC 09:56
DX: N18.3 Chronic kidney disease, stage 3 (moderate) (principal); D50.9 Iron deficiency anemia, unspecified; E78.00 Pure hypercholesterolemia, unspecified; E11.40 Type 2 diabetes mellitus with diabetic neuropathy, unspecified; E83.42 Hypomagnesemia; Z12.5 Encounter for screening for malignant neoplasm of prostate
CPT/HCPCS: 83550

== ENCOUNTER → 2017-11-24 | Outpatient (REF) | payer MEDICARE ==
[2017-11-24 12:50] LABS: BASO % 0.4 % (0.0-1.0); EOS % 0.4 % (0.0-3.0); HEMATOCRIT 37.9 % (42.0-52.0); IMMATURE GRANULOCYTE % 0.5 % (0-3.0); LYMPH % 4.8 % (24.0-44.0); MEAN CORPUSCULAR HEMOGLOBIN 27.3 pg (27.0-33.0); MEAN CORPUSCULAR HGB CONC 31.7 g/dl (32.0-36.5); MEAN CORPUSCULAR VOLUME 86.3 fl (80.0-96.0); MONO % 5.2 % (0.0-5.0); NEUTROPHILS % 88.7 % (36.0-66.0); PLATELET COUNT, AUTOMATED 344 10^3/uL (150-450); RED BLOOD COUNT 4.39 10^6/uL (4.30-6.10); RED CELL DISTRIBUTION WIDTH 15.7 % (11.5-14.5); WHITE BLOOD COUNT 10.6 10^3/uL (4.0-10.0)
[2017-11-24 12:51] LABS: LYMPH # 0.5 10^3/uL (1.5-4.5); MONO # 0.6 10^3/uL (0.0-0.8); NEUTROPHILS # 9.4 10^3/uL (1.8-7.7)
[2017-11-24 13:06] LABS: ALBUMIN 3.2 GM/DL (3.2-5.2); ALBUMIN/GLOBULIN RATIO 0.82 (1.00-1.93); ALKALINE PHOSPHATASE 124 U/L (45-117); ALT/SGPT 25 U/L (12-78); ANION GAP 12 MEQ/L (8-16); AST/SGOT 33 U/L (7-37); BILIRUBIN,TOTAL 0.5 MG/DL (0.2-1.0); BLOOD UREA NITROGEN 23 MG/DL (7-18); C REACTIVE PROTEIN QUANTITATIV 2.66 MG/DL (0.00-0.30); CALCIUM LEVEL 8.9 MG/DL (8.8-10.2); CARBON DIOXIDE LEVEL 26 MEQ/L (21-32); CHLORIDE LEVEL 98 MEQ/L (98-107); GLOMERULAR FILTRATION RATE 41.5 (>35); GLUCOSE, FASTING 271 MG/DL (70-100); POTASSIUM SERUM 3.7 MEQ/L (3.5-5.1); SODIUM LEVEL 136 MEQ/L (136-145); TOTAL PROTEIN 7.1 GM/DL (6.4-8.2)
[2017-11-24 13:44] LABS: ERYTHROCYTE SEDIMENTATION RATE 60 mm/hr (0-20)
== END ==
LOC: M LAB REF 12:10
DX: M86.18 Other acute osteomyelitis, other site (principal); M46.26 Osteomyelitis of vertebra, lumbar region; R94.5 Abnormal results of liver function studies
CPT/HCPCS: 80053

== ENCOUNTER → 2017-12-01 | Outpatient (REF) | payer MEDICARE ==
[2017-12-01 18:42] LABS: BASO % 0.2 % (0.0-1.0); EOS # 0.1 10^3/uL (0.0-0.50); EOS % 0.9 % (0.0-3.0); HEMATOCRIT 34.5 % (42.0-52.0); IMMATURE GRANULOCYTE % 0.2 % (0-3.0); LYMPH # 0.5 10^3/uL (1.5-4.5); LYMPH % 5.5 % (24.0-44.0); MEAN CORPUSCULAR HEMOGLOBIN 27.8 pg (27.0-33.0); MEAN CORPUSCULAR HGB CONC 31.9 g/dl (32.0-36.5); MEAN CORPUSCULAR VOLUME 87.3 fl (80.0-96.0); MONO # 0.5 10^3/uL (0.0-0.8); MONO % 5.9 % (0.0-5.0); NEUTROPHILS # 7.6 10^3/uL (1.8-7.7); NEUTROPHILS % 87.3 % (36.0-66.0); PLATELET COUNT, AUTOMATED 281 10^3/uL (150-450); RED BLOOD COUNT 3.95 10^6/uL (4.30-6.10); RED CELL DISTRIBUTION WIDTH 15.9 % (11.5-14.5); WHITE BLOOD COUNT 8.7 10^3/uL (4.0-10.0)
[2017-12-01 18:53] LABS: ALBUMIN 2.9 GM/DL (3.2-5.2); ALBUMIN/GLOBULIN RATIO 0.81 (1.00-1.93); ALKALINE PHOSPHATASE 125 U/L (45-117); ALT/SGPT 38 U/L (12-78); ANION GAP 10 MEQ/L (8-16); AST/SGOT 37 U/L (7-37); BILIRUBIN,TOTAL 0.3 MG/DL (0.2-1.0); BLOOD UREA NITROGEN 28 MG/DL (7-18); CALCIUM LEVEL 8.9 MG/DL (8.8-10.2); CARBON DIOXIDE LEVEL 28 MEQ/L (21-32); CHLORIDE LEVEL 99 MEQ/L (98-107); CREATININE FOR GFR 1.47 MG/DL (0.70-1.30); GLOMERULAR FILTRATION RATE 49.1 (>35); GLUCOSE, FASTING 288 MG/DL (70-100); POTASSIUM SERUM 4.5 MEQ/L (3.5-5.1); SODIUM LEVEL 137 MEQ/L (136-145); TOTAL PROTEIN 6.5 GM/DL (6.4-8.2)
[2017-12-01 19:56] LABS: POS COUNT POS FLAG
[2017-12-01 21:05] LABS: ERYTHROCYTE SEDIMENTATION RATE 52 mm/hr (0-20)
== END ==
LOC: M LAB REF 16:54
DX: M46.26 Osteomyelitis of vertebra, lumbar region (principal); R94.5 Abnormal results of liver function studies
CPT/HCPCS: 80053

== ENCOUNTER → 2017-12-11 | Outpatient (REF) | payer MEDICARE ==
[2017-12-11 16:05] LABS: BASO % 0.4 % (0.0-1.0); EOS % 0.3 % (0.0-3.0); HEMATOCRIT 35.7 % (42.0-52.0); HEMOGLOBIN 11.1 g/dl (13.5-17.5); IMMATURE GRANULOCYTE % 0.3 % (0-3.0); LYMPH # 0.5 10^3/uL (1.5-4.5); LYMPH % 4.7 % (24.0-44.0); MEAN CORPUSCULAR HEMOGLOBIN 27.4 pg (27.0-33.0); MEAN CORPUSCULAR HGB CONC 31.1 g/dl (32.0-36.5); MEAN CORPUSCULAR VOLUME 88.1 fl (80.0-96.0); MONO # 0.5 10^3/uL (0.0-0.8); MONO % 5.3 % (0.0-5.0); NEUTROPHILS # 9.1 10^3/uL (1.8-7.7); PLATELET COUNT, AUTOMATED 363 10^3/uL (150-450); RED BLOOD COUNT 4.05 10^6/uL (4.30-6.10); RED CELL DISTRIBUTION WIDTH 15.9 % (11.5-14.5); WHITE BLOOD COUNT 10.3 10^3/uL (4.0-10.0)
[2017-12-11 16:29] LABS: ANION GAP 14 MEQ/L (8-16); BLOOD UREA NITROGEN 28 MG/DL (7-18); C REACTIVE PROTEIN QUANTITATIV 1.89 MG/DL (0.00-0.30); CARBON DIOXIDE LEVEL 24 MEQ/L (21-32); CHLORIDE LEVEL 99 MEQ/L (98-107); CREATININE FOR GFR 1.44 MG/DL (0.70-1.30); GLOMERULAR FILTRATION RATE 50.2 (>35); GLUCOSE, FASTING 176 MG/DL (70-100); SODIUM LEVEL 137 MEQ/L (136-145)
[2017-12-11 16:30] LABS: ERYTHROCYTE SEDIMENTATION RATE 61 mm/hr (0-20)
== END ==
LOC: M SFHCPLAZ 12:08
DX: M46.47 Discitis, unspecified, lumbosacral region (principal)
CPT/HCPCS: 80048

== ENCOUNTER → 2017-12-25 | Outpatient (CLI) | payer MEDICARE ==
[2017-12-25 14:16] LABS: BASO % 0.4 % (0.0-1.0); EOS % 0.4 % (0.0-3.0); HEMATOCRIT 36.2 % (42.0-52.0); HEMOGLOBIN 11.3 g/dl (13.5-17.5); IMMATURE GRANULOCYTE % 0.3 % (0-3.0); LYMPH # 0.6 10^3/uL (1.5-4.5); LYMPH % 6.2 % (24.0-44.0); MEAN CORPUSCULAR HEMOGLOBIN 27.5 pg (27.0-33.0); MEAN CORPUSCULAR HGB CONC 31.2 g/dl (32.0-36.5); MEAN CORPUSCULAR VOLUME 88.1 fl (80.0-96.0); MONO # 0.6 10^3/uL (0.0-0.8); MONO % 5.7 % (0.0-5.0); NEUTROPHILS # 8.6 10^3/uL (1.8-7.7); PLATELET COUNT, AUTOMATED 327 10^3/uL (150-450); RED BLOOD COUNT 4.11 10^6/uL (4.30-6.10); RED CELL DISTRIBUTION WIDTH 15.7 % (11.5-14.5); WHITE BLOOD COUNT 9.9 10^3/uL (4.0-10.0)
[2017-12-25 14:23] LABS: ANION GAP 9 MEQ/L (8-16); BLOOD UREA NITROGEN 26 MG/DL (7-18); C REACTIVE PROTEIN QUANTITATIV 2.32 MG/DL (0.00-0.30); CARBON DIOXIDE LEVEL 26 MEQ/L (21-32); CHLORIDE LEVEL 98 MEQ/L (98-107); CREATININE FOR GFR 1.55 MG/DL (0.70-1.30); GLOMERULAR FILTRATION RATE 46.2 (>35); GLUCOSE, FASTING 338 MG/DL (70-100); POTASSIUM SERUM 5.3 MEQ/L (3.5-5.1); SODIUM LEVEL 133 MEQ/L (136-145)
[2017-12-25 14:49] LABS: ERYTHROCYTE SEDIMENTATION RATE 56 mm/hr (0-20)
== END ==
LOC: M WUC 10:12
DX: M46.47 Discitis, unspecified, lumbosacral region (principal)
CPT/HCPCS: 80048

== ENCOUNTER → 2018-01-12 | Outpatient (CLI) | payer MEDICARE ==
[2018-01-12 12:31] LABS: BASO # 0.1 10^3/uL (0.0-0.2); BASO % 0.5 % (0.0-1.0); EOS # 0.1 10^3/uL (0.0-0.50); EOS % 0.9 % (0.0-3.0); HEMATOCRIT 37.3 % (42.0-52.0); HEMOGLOBIN 11.9 g/dl (13.5-17.5); IMMATURE GRANULOCYTE % 0.5 % (0-3.0); LYMPH # 0.7 10^3/uL (1.5-4.5); LYMPH % 7.3 % (24.0-44.0); MEAN CORPUSCULAR HGB CONC 31.9 g/dl (32.0-36.5); MEAN CORPUSCULAR VOLUME 87.8 fl (80.0-96.0); MONO # 0.7 10^3/uL (0.0-0.8); MONO % 7.1 % (0.0-5.0); NEUTROPHILS # 7.7 10^3/uL (1.8-7.7); NEUTROPHILS % 83.7 % (36.0-66.0); PLATELET COUNT, AUTOMATED 326 10^3/uL (150-450); RED BLOOD COUNT 4.25 10^6/uL (4.30-6.10); RED CELL DISTRIBUTION WIDTH 15.1 % (11.5-14.5); WHITE BLOOD COUNT 9.2 10^3/uL (4.0-10.0)
[2018-01-12 13:01] LABS: ERYTHROCYTE SEDIMENTATION RATE 45 mm/hr (0-20)
[2018-01-12 14:07] LABS: ANION GAP 13 MEQ/L (8-16); BLOOD UREA NITROGEN 34 MG/DL (7-18); C REACTIVE PROTEIN QUANTITATIV 0.61 MG/DL (0.00-0.30); CARBON DIOXIDE LEVEL 23 MEQ/L (21-32); CHLORIDE LEVEL 99 MEQ/L (98-107); CREATININE FOR GFR 1.59 MG/DL (0.70-1.30); GLOMERULAR FILTRATION RATE 44.8 (>35); GLUCOSE, FASTING 281 MG/DL (70-100); POTASSIUM SERUM 5.5 MEQ/L (3.5-5.1); SODIUM LEVEL 135 MEQ/L (136-145)
== END ==
LOC: M WUC 10:04
DX: M46.47 Discitis, unspecified, lumbosacral region (principal)
CPT/HCPCS: 80048

== ENCOUNTER → 2018-01-26 | Outpatient (CLI) | payer MEDICARE ==
[2018-01-26 12:42] LABS: BASO # 0.1 10^3/uL (0.0-0.2); BASO % 0.6 % (0.0-1.0); EOS # 0.1 10^3/uL (0.0-0.50); EOS % 0.6 % (0.0-3.0); HEMATOCRIT 35.8 % (42.0-52.0); HEMOGLOBIN 11.3 g/dl (13.5-17.5); IMMATURE GRANULOCYTE % 0.3 % (0-3.0); LYMPH # 0.7 10^3/uL (1.5-4.5); LYMPH % 7.2 % (24.0-44.0); MEAN CORPUSCULAR HEMOGLOBIN 27.7 pg (27.0-33.0); MEAN CORPUSCULAR HGB CONC 31.6 g/dl (32.0-36.5); MEAN CORPUSCULAR VOLUME 87.7 fl (80.0-96.0); MONO # 0.5 10^3/uL (0.0-0.8); MONO % 5.4 % (0.0-5.0); NEUTROPHILS # 8.1 10^3/uL (1.8-7.7); NEUTROPHILS % 85.9 % (36.0-66.0); PLATELET COUNT, AUTOMATED 267 10^3/uL (150-450); RED BLOOD COUNT 4.08 10^6/uL (4.30-6.10); RED CELL DISTRIBUTION WIDTH 14.8 % (11.5-14.5); WHITE BLOOD COUNT 9.5 10^3/uL (4.0-10.0)
[2018-01-26 13:19] LABS: ANION GAP 9 MEQ/L (8-16); BLOOD UREA NITROGEN 20 MG/DL (7-18); C REACTIVE PROTEIN QUANTITATIV 1.03 MG/DL (0.00-0.30); CALCIUM LEVEL 8.5 MG/DL (8.8-10.2); CARBON DIOXIDE LEVEL 26 MEQ/L (21-32); CHLORIDE LEVEL 102 MEQ/L (98-107); CREATININE FOR GFR 1.47 MG/DL (0.70-1.30); GLOMERULAR FILTRATION RATE 49.1 (>35); GLUCOSE, FASTING 251 MG/DL (70-100); POTASSIUM SERUM 5.7 MEQ/L (3.5-5.1); SODIUM LEVEL 137 MEQ/L (136-145)
[2018-01-26 13:46] LABS: ERYTHROCYTE SEDIMENTATION RATE 59 mm/hr (0-20)
== END ==
LOC: M WUC 10:37
DX: M46.47 Discitis, unspecified, lumbosacral region (principal)
CPT/HCPCS: 80048

== ENCOUNTER → 2018-02-09 | Outpatient (CLI) | payer MEDICARE ==
[2018-02-09 13:30] LABS: BASO # 0.1 10^3/uL (0.0-0.2); BASO % 0.7 % (0.0-1.0); EOS # 0.2 10^3/uL (0.0-0.50); EOS % 1.9 % (0.0-3.0); HEMATOCRIT 34.5 % (42.0-52.0); HEMOGLOBIN 10.8 g/dl (13.5-17.5); IMMATURE GRANULOCYTE % 0.6 % (0-3.0); LYMPH # 0.8 10^3/uL (1.5-4.5); LYMPH % 9.7 % (24.0-44.0); MEAN CORPUSCULAR HEMOGLOBIN 27.6 pg (27.0-33.0); MEAN CORPUSCULAR HGB CONC 31.3 g/dl (32.0-36.5); MEAN CORPUSCULAR VOLUME 88.2 fl (80.0-96.0); MONO # 0.7 10^3/uL (0.0-0.8); MONO % 8.4 % (0.0-5.0); NEUTROPHILS # 6.8 10^3/uL (1.8-7.7); NEUTROPHILS % 78.7 % (36.0-66.0); PLATELET COUNT, AUTOMATED 291 10^3/uL (150-450); RED BLOOD COUNT 3.91 10^6/uL (4.30-6.10); RED CELL DISTRIBUTION WIDTH 14.8 % (11.5-14.5); WHITE BLOOD COUNT 8.6 10^3/uL (4.0-10.0)
[2018-02-09 13:40] LABS: ANION GAP 7 MEQ/L (8-16); BLOOD UREA NITROGEN 31 MG/DL (7-18); CALCIUM LEVEL 8.8 MG/DL (8.8-10.2); CARBON DIOXIDE LEVEL 26 MEQ/L (21-32); CHLORIDE LEVEL 110 MEQ/L (98-107); CREATININE FOR GFR 1.44 MG/DL (0.70-1.30); GLOMERULAR FILTRATION RATE 50.2 (>35); GLUCOSE, FASTING 123 MG/DL (70-100); POTASSIUM SERUM 5.3 MEQ/L (3.5-5.1); SODIUM LEVEL 143 MEQ/L (136-145)
[2018-02-09 14:01] LABS: ERYTHROCYTE SEDIMENTATION RATE 52 mm/hr (0-20)
== END ==
LOC: M WUC 09:40
DX: M46.47 Discitis, unspecified, lumbosacral region (principal)
CPT/HCPCS: 80048

== ENCOUNTER → 2018-02-23 | Outpatient (CLI) | payer MEDICARE ==
[~2018-02-23] MED LIST changes: +ACET1TAB55 PO; +AMOX875T2 PO; +ASPI1TAB PO; +BISO5TAB5 PO; +CIPR-249 PO; +CIPR500T3 PO; +CYCL5TAB PO; +FERR325T3 PO; +FLAG500T PO; +GABA-843; +GLIM2TAB PO; +IRBE75TA5 PO; -ISOVUE-300 61% 50ML VIAL (Q9967) As Ordered; +KEFL500C17 PO; +KETOROLAC 0.4% OS; +LANTINJ4 SC; +LEVA1TAB2 PO; -LIDOCAINE 2% MDV 20 ML VIAL As Ordered; +MAGN400T PO; +METF10004; +METF10004 PO; +METR-201 PO; +MULTCAP PO; +NITR4TASL SL; +NORCOTAB PO; +OMEP20CA3 PO; +PRAV40TA2 PO; +PRAV80TA PO; +PREDOPD OS; +TRAM50TA2 PO; +TYLE325T5 PO; +TYLE650T35 PO; +VITA100072 PO
[2018-02-23 12:58] LABS: C REACTIVE PROTEIN QUANTITATIV 0.88 MG/DL (0.00-0.30); CALCIUM LEVEL 8.7 MG/DL (8.8-10.2); CREATININE FOR GFR 1.67 MG/DL (0.70-1.30); GLOMERULAR FILTRATION RATE 42.4 (>35); POTASSIUM SERUM 5.3 MEQ/L (3.5-5.1)
[2018-02-23 13:00] LABS: BASO # 0.1 10^3/uL (0.0-0.2); EOS # 0.2 10^3/uL (0.0-0.50); HEMATOCRIT 38.6 % (42.0-52.0); LYMPH # 0.9 10^3/uL (1.5-4.5); LYMPH % 12.5 % (24.0-44.0); MEAN CORPUSCULAR HEMOGLOBIN 27.5 pg (27.0-33.0); MEAN CORPUSCULAR HGB CONC 31.1 g/dl (32.0-36.5); MEAN CORPUSCULAR VOLUME 88.5 fl (80.0-96.0); MONO # 0.6 10^3/uL (0.0-0.8); MONO % 7.8 % (0.0-5.0); NEUTROPHILS # 5.6 10^3/uL (1.8-7.7); NEUTROPHILS % 76.4 % (36.0-66.0); PLATELET COUNT, AUTOMATED 273 10^3/uL (150-450); RED BLOOD COUNT 4.36 10^6/uL (4.30-6.10); WHITE BLOOD COUNT 7.4 10^3/uL (4.0-10.0)
[2018-02-23 13:40] LABS: ERYTHROCYTE SEDIMENTATION RATE 49 mm/hr (0-20)
== END ==
LOC: M WUC 09:56
PROVIDERS: ATTEND Internal Medicine Infectious Disease
DX: M46.47 Discitis, unspecified, lumbosacral region (principal)

== ENCOUNTER → 2018-03-09 | Outpatient (CLI) | payer MEDICARE ==
--- NOTE | 2018-03-09 15:08 | REP ---
Chest two views HISTORY: Bronchitis Comparison: 09/24/2017 The lungs are hyperinflated. The lungs are clear. The heart is normal in size. The pulmonary vasculature is normal in appearance. The bony structure is intact. IMPRESSION: No acute disease. Electronically Signed by Adrian Velez MD 03/09/2018 02:59 P
== END ==
LOC: M WUC 13:54
PROVIDERS: ATTEND Nurse Practitioner Adult Health
DX: J40 Bronchitis, not specified as acute or chronic (principal)

== ENCOUNTER → 2018-04-21 | Outpatient (CLI) | payer MEDICARE ==
[2018-04-21 13:10] LABS: BASO % 0.6 % (0.0-1.0); EOS # 0.2 10^3/uL (0.0-0.50); EOS % 2.7 % (0.0-3.0); HEMATOCRIT 35.2 % (42.0-52.0); HEMOGLOBIN 11.1 g/dl (13.5-17.5); LYMPH # 0.9 10^3/uL (1.5-4.5); LYMPH % 12.7 % (24.0-44.0); MEAN CORPUSCULAR HEMOGLOBIN 27.6 pg (27.0-33.0); MEAN CORPUSCULAR HGB CONC 31.5 g/dl (32.0-36.5); MEAN CORPUSCULAR VOLUME 87.6 fl (80.0-96.0); MONO # 0.5 10^3/uL (0.0-0.8); MONO % 6.7 % (0.0-5.0); NEUTROPHILS # 5.2 10^3/uL (1.8-7.7); NEUTROPHILS % 77.2 % (36.0-66.0); PLATELET COUNT, AUTOMATED 266 10^3/uL (150-450); RED BLOOD COUNT 4.02 10^6/uL (4.30-6.10); WHITE BLOOD COUNT 6.7 10^3/uL (4.0-10.0)
[2018-04-21 14:06] LABS: C REACTIVE PROTEIN QUANTITATIV 0.9 MG/DL (0.00-0.30); CREATININE FOR GFR 1.61 MG/DL (0.70-1.30); GLOMERULAR FILTRATION RATE 44.2 (>35); POTASSIUM SERUM 5.2 MEQ/L (3.5-5.1)
[2018-04-21 14:22] LABS: ERYTHROCYTE SEDIMENTATION RATE 39 mm/hr (0-20)
== END ==
LOC: M WUC 09:38
PROVIDERS: ATTEND Internal Medicine Infectious Disease
DX: M46.47 Discitis, unspecified, lumbosacral region (principal)

== ENCOUNTER → 2018-04-28 | Outpatient (REF) | payer MEDICARE | LOC: M LAB REF 15:46 | PROVIDERS: ATTEND Podiatrist | DX: M79.674 Pain in right toe(s) (principal); L03.031 Cellulitis of right toe ==

== ENCOUNTER → 2018-05-12 | Outpatient (CLI) | payer MEDICARE ==
--- NOTE | 2018-05-12 10:35 | REP ---
PARTIAL LUMBAR SPINE, THREE VIEWS: HISTORY: Osteomyelitis. COMPARISON: 05/03/2017 There is a fracture of the L2 vertebral body with severe loss of vertebral body height and minimal retropulsion. The L1-2 through L5-S1 intervertebral discs are decreased in height. Vacuum phenomenon is present at the L4-5 level. These findings are consistent with disc degeneration. There is sclerosis of the endplates of the L1 through L3 vertebral bodies. Extensive osteophyte formation is present at the L1-2 and L2-3 levels. Anterior osteophytes are present at the L4 through S1 levels. There is increased kyphosis at the L1-2 level. An IVC filter is present. IMPRESSION:1. There are findings compatible with discitis/osteomyelitis at the L1-2 and L2-3 levels. There is a compression fracture of the L2 vertebral body with severe loss of vertebral body height and minimal retropulsion. 2. Degenerative change as described above. Electronically Signed by Adrian Velez MD 05/12/2018 10:43 A
[2018-05-12 12:34] LABS: HEMATOCRIT 35.7 % (42.0-52.0); HEMOGLOBIN 11.4 g/dl (13.5-17.5); MEAN CORPUSCULAR HEMOGLOBIN 27.5 pg (27.0-33.0); MEAN CORPUSCULAR HGB CONC 31.9 g/dl (32.0-36.5); PLATELET COUNT, AUTOMATED 270 10^3/uL (150-450); RED BLOOD COUNT 4.15 10^6/uL (4.30-6.10); WHITE BLOOD COUNT 6.7 10^3/uL (4.0-10.0)
[2018-05-12 12:48] LABS: ALBUMIN 3.4 GM/DL (3.2-5.2); BILIRUBIN,TOTAL 0.5 MG/DL (0.2-1.0); CALCIUM LEVEL 8.9 MG/DL (8.8-10.2); CREATININE FOR GFR 1.44 MG/DL (0.70-1.30); GLOMERULAR FILTRATION RATE 50.2 (>35); PERCENT SATURATION 25.9 % (19.7-50.0); POTASSIUM SERUM 4.9 MEQ/L (3.5-5.1); TOTAL PROTEIN 6.5 GM/DL (6.4-8.2)
== END ==
LOC: M WUC 08:53
PROVIDERS: ATTEND Family Medicine
DX: D50.9 Iron deficiency anemia, unspecified (principal); E11.40 Type 2 diabetes mellitus with diabetic neuropathy, unspecified; M46.26 Osteomyelitis of vertebra, lumbar region

== ENCOUNTER → 2018-05-12 | Outpatient (CLI) | payer MEDICARE ==
[2018-05-12 12:32] LABS: BASO # 0.1 10^3/uL (0.0-0.2); BASO % 0.9 % (0.0-1.0); EOS # 0.1 10^3/uL (0.0-0.50); EOS % 1.9 % (0.0-3.0); HEMATOCRIT 35.6 % (42.0-52.0); HEMOGLOBIN 11.4 g/dl (13.5-17.5); LYMPH # 0.8 10^3/uL (1.5-4.5); MEAN CORPUSCULAR HEMOGLOBIN 27.5 pg (27.0-33.0); MEAN CORPUSCULAR VOLUME 85.8 fl (80.0-96.0); MONO # 0.5 10^3/uL (0.0-0.8); NEUTROPHILS # 5.2 10^3/uL (1.8-7.7); NEUTROPHILS % 77.9 % (36.0-66.0); PLATELET COUNT, AUTOMATED 264 10^3/uL (150-450); RED BLOOD COUNT 4.15 10^6/uL (4.30-6.10); WHITE BLOOD COUNT 6.7 10^3/uL (4.0-10.0)
[2018-05-12 12:59] LABS: ERYTHROCYTE SEDIMENTATION RATE 48 mm/hr (0-20)
[2018-05-12 13:07] LABS: C REACTIVE PROTEIN QUANTITATIV 0.74 MG/DL (0.00-0.30); CREATININE FOR GFR 1.47 MG/DL (0.70-1.30); GLOMERULAR FILTRATION RATE 49.1 (>35)
== END ==
LOC: M WUC 09:03
PROVIDERS: ATTEND Internal Medicine Infectious Disease
DX: M46.47 Discitis, unspecified, lumbosacral region (principal)

== ENCOUNTER → 2018-08-28 | Outpatient (CLI) | payer MEDICARE ==
[~2018-08-28] MED LIST changes: -ASPI1TAB PO; +ASPI81TA26 PO; +HYDR-3715 PO; -METR-201 PO; +METR-265 PO; -NORCOTAB PO; -OMEP20CA3 PO; +OMEP20CA4 PO; +VITA100018 PO; -VITA100072 PO
[2018-08-28 15:54] LABS: HEMATOCRIT 36.1 % (42.0-52.0); HEMOGLOBIN 11.1 g/dl (13.5-17.5); MEAN CORPUSCULAR HGB CONC 30.7 g/dl (32.0-36.5); MEAN CORPUSCULAR VOLUME 91.2 fl (80.0-96.0); PLATELET COUNT, AUTOMATED 254 10^3/uL (150-450); RED BLOOD COUNT 3.96 10^6/uL (4.30-6.10); WHITE BLOOD COUNT 6.3 10^3/uL (4.0-10.0)
[2018-08-28 15:57] LABS: ALBUMIN 3.6 GM/DL (3.2-5.2); BILIRUBIN,TOTAL 0.5 MG/DL (0.2-1.0); CALCIUM LEVEL 8.7 MG/DL (8.8-10.2); CREATININE FOR GFR 1.66 MG/DL (0.70-1.30); GLOMERULAR FILTRATION RATE 42.5 (>35); POTASSIUM SERUM 5.4 MEQ/L (3.5-5.1); TOTAL PROTEIN 6.6 GM/DL (6.4-8.2)
[2018-08-28 16:20] LABS: HEMOGLOBIN A1c 8.6 %
== END ==
LOC: M WUC 08:56
PROVIDERS: ATTEND Family Medicine
DX: E11.9 Type 2 diabetes mellitus without complications (principal)

== ENCOUNTER → 2018-10-08 | Outpatient (CLI) | payer MEDICARE ==
--- NOTE | 2018-10-08 16:42 | REP ---
Bilateral lower extremity Duplex Doppler venous ultrasound: Real time compression and duplex Doppler interrogation of the bilateral lower extremity deep venous system is performed. Bilaterally, the common femoral, superficial femoral and popliteal veins are fully compressible with transducer pressure and demonstrate normal spontaneous and phasic flow, without evidence of deep venous thrombosis. Impression: No evidence of deep venous thrombosis of the bilateral lower extremity femoral popliteal venous system. Electronically Signed by Reggie Brennan MD 10/08/2018 04:34 P
== END ==
LOC: M RAD 11:17
PROVIDERS: ATTEND Physician Assistant
DX: I82.402 Acute embolism and thrombosis of unspecified deep veins of left lower extremity (principal); Z95.828 Presence of other vascular implants and grafts

== ENCOUNTER → 2018-11-09 | Outpatient (CLI) | payer MEDICARE ==
[~2018-11-09] MED LIST changes: -BISO5TAB5 PO; +BISO5TAB9 PO; +BUPIVACAINE HCL 0.5% 10 ML VIAL As Ordered ONE; +INSULANT SC; +ISOVUE-300 61% 50ML VIAL (Q9967) As Ordered ONE; +LIDOCAINE 2% MDV 20 ML VIAL As Ordered ONE; +MAGN64TASA PO
[2018-11-09 09:45] VITALS: BP 179/93
--- NOTE | 2018-11-09 12:02 | ROOPDOC ---
[facility] Report Of Operation Report of Operation DATE OF PROCEDURE: 11/09/2018 ATTENDING SURGEON: DR. Carmen Santiago M.D. 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 POSTOPERATIVE DIAGNOSES: Left lower extremity DVT status post inferior vena cava filter placement with a Reina retrievable inferior vena cava filter, acute discitis with osteomyelitis resolved, diabetes mellitus, hypertension, coronary artery disease with status post coronary artery bypass grafting, CKD3, anemia and gastritis. PROCEDURES: Ultrasound-guided right internal jugular vein cannulation. Inferior vena cava catheter placement with inferior vena cava venogram. Inferior vena cava filter retrieval with use of a Lucky Ant snare retrieval Kit INDICATION: The patient is an 83-year-old male who underwent placement of an inferior vena cava filter secondary to left lower extremity deep venous thrombosis and inability to undergo anticoagulation. The patient had acute discitis and anemia and was unable to undergo anticoagulation with the initial diagnosis of his deep venous thrombosis and now has resolution of the discitis and no longer requires the inferior vena cava filter. Patient will undergo removal of the inferior vena cava filter. The procedure was described and explained in detail to the patient including drawing of pictures demonstrating the procedure and pertinent anatomy. Risks, benefits and alternative treatment options were discussed with the patient. Alternative treatment options included but were not limited to no intervention. Benefits include but were not limited to removal of the inferior vena cava filter preventing complications from the inferior vena cava filter. Risks included but were not limited to infection, bleeding, renal failure requiring hemodialysis, IVC filter thrombosis, IVC filter migration, perforation of the inferior vena cava filter through the inferior vena cava into surrounding tissue and organs, injury to the inferior vena cava requiring possible endovascular or open surgical repair, inability to remove the inferior vena cava filter, retroperitoneal hematoma, cannulation site deep venous thrombosis possible need for open surgical intervention, possible requirement for transfusion of blood products, allergic reaction and/or complication from IV contrast, allergic reaction and/or complication from the prepping and draping materials, sedation related complication, scarring of the skin, bruising, nerve injury, anesthetic complications, cerebrovascular accident, myocardial infarction, pulmonary embolus, deep venous thrombosis, loss of limb, loss of life, poor satisfaction and poor outcome. Risks of not performing the procedure included but were not limited to risks of continued inferior vena cava filter within the inferior vena cava, inferior vena cava filter migration, inferior vena cava filter thrombosis, perforation of the inferior vena cava into the surrounding tissue and orbital and organs, inferior vena cava filter fracture and . Patient's questions were answered. Patient voices understanding of these risks, benefits and alternative treatment options. Patient voices acceptance of the risks associated with inferior vena cava filter retrievable and agrees to proceed with the procedure excepting the associated risks of the procedure. No guarantees or promises were made to the patient or his regarding the results or outcome of the procedure. Both the patient and his were present during discussions involving with removal of the inferior vena cava filter and all of their questions were answered prior to the patient signing the consent. ANESTHESIA: Local with 10 mL of 2% lidocaine mixed with 0.5% Marcaine. SEDATION TIME: None. No sedation was administered. ESTIMATED BLOOD LOSS: 10 mL. INTRAVENOUS FLUID: 50 mL. HEPARIN:None PROTAMINE:None FLUORO TIME: 2.2 minutes. CONTRAST: 6 cc of Isovue 300. COMPLICATIONS: None DRAINS: None SPECIMENS:None IMPLANTS: None FINDINGS: The filter was in good position and alignment and was easily snared and removed. DESCRIPTION OF PROCEDURE: Patient was taken to the angiography suite, placed supine on the angiography room table and then prepped and draped in a standard surgical fashion. A procedural timeout was then conducted by myself and the team members in the procedure confirming the correct patient, procedure and laterality. Ultrasound was then used to evaluate the right internal jugular vein, which was noted to be widely patent, easily compressible and free of thrombus. Ultrasound was then used to guide cannulation of the right internal jugular vein with a micropuncture needle after anesthetizing the overlying skin and subcutaneous tissue with 2% lidocaine mixed with 0.5% Marcaine. The bari ropuncture wire was advanced through the micropuncture needle which was upsized to a micropuncture sheath. Sedation was then given through the micropuncture sheath. The Rojas wire was then advanced through the micropuncture sheath which was upsized to the 10 [place] sheath. The sheath was advanced into the inferior vena cava and an inferior vena cava gram was performed. This showed the filter to be in good position and good alignment with no thrombus within the filter. The snare was then advanced through the sheath and used to snare the filter which was then removed using the coaxial system. A completion inferior vena cava venogram was performed showing good flow through the inferior vena cava with no extravasation, intimal flaps or injury to the inferior vena cava. The sheath was removed from the right internal jugular vein. Manual compression was applied at the puncture site for hemostasis which was noted. Dressings were then applied. There were no complications. Patient tolerated the procedure well. Dr. Santiago was present for and directed the entire case. Patient was transferred to the holding area and subsequently discharged in stable condition. The results of the procedure were described and explained to the patient and his in the postprocedure holding area with all of her questions being answered. RADIOLOGIC SUPERVISION AND INTERPRETATION: The ultrasound showed the right i nternal jugular vein to be widely patent, easily compressible and free of thrombus. Ultrasound was used to guide cannulation of the right internal jugular vein. A catheter was then placed in the inferior vena cava and an inferior vena cava venogram was performed showing the filter to be in good position and good alignment with no thrombus noted within the filter. The filter was then snared and removed without difficulty. Completion inferior vena cava venogram showed the inferior vena cava to be widely patent with good flow from the common iliac veins into the inferior vena cava and centrally with no extravasation, intimal flap or injury to the inferior vena cava at the site of the inferior vena cava filter removal. Hong Santiago MD Nov 09, 2018 12:02
== END ==
LOC: M IRPRO 08:22
PROVIDERS: ATTEND Surgery Vascular Surgery
DX: Z45.89 Encounter for adjustment and management of other implanted devices (principal); Z86.718 Personal history of other venous thrombosis and embolism; N18.3 Chronic kidney disease, stage 3 (moderate); E11.22 Type 2 diabetes mellitus with diabetic chronic kidney disease; I12.9 Hypertensive chronic kidney disease with stage 1 through stage 4 chronic kidney disease, or unspecified chronic kidney disease; I25.10 Atherosclerotic heart disease of native coronary artery without angina pectoris; D64.9 Anemia, unspecified; Z95.1 Presence of aortocoronary bypass graft
CPT/HCPCS: 37193; C1769; C1894; Q9967

== ENCOUNTER → 2018-11-17 | Outpatient (CLI) | payer MEDICARE ==
[~2018-11-17] MED LIST changes: -BUPIVACAINE HCL 0.5% 10 ML VIAL As Ordered ONE; -ISOVUE-300 61% 50ML VIAL (Q9967) As Ordered ONE; -LIDOCAINE 2% MDV 20 ML VIAL As Ordered ONE
--- NOTE | 2018-11-17 13:50 | REP ---
Lumbar spine five views: Comparisons are the abdomen/pelvis CT dated 11/11/2017 and lumbar spine series of 12/26/1927. There is grade 4 compression deformity of the L2 vertebral body without retropulsion. This is unchanged. There are large bridging osteophytes along the right lateral margin of L1-2 in the left lateral margin of L2-3. These are unchanged. Remainder of the vertebral body heights are normal. There is mild scoliosis convex right. There is moderate disc space narrowing and osteophyte formation throughout the remainder of the lumbar spine compatible with multilevel degenerative disc disease. This is unchanged. The pedicles are unremarkable. The facet articulations demonstrate mild osteoarthritis. There is no spondylolysis or spondylolisthesis. Impression: Chronic grade 4 compression deformity of the L2 vertebral body with bridging osteophytes bilaterally as described, unchanged. There is no retropulsion. 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 Mild scoliosis convex right. Facet osteoarthritis. Electronically Signed by Reggie Downing MD 11/17/2018 01:41 P
== END ==
LOC: M ADAMS 10:26
PROVIDERS: ATTEND Family Medicine
DX: M48.56XG Collapsed vertebra, not elsewhere classified, lumbar region, subsequent encounter for fracture with delayed healing (principal)

== ENCOUNTER → 2018-12-23 | Outpatient (CLI) | payer MEDICARE ==
[~2018-12-23] MED LIST changes: -GLIM2TAB PO; +GLIM2TAB2 PO; -MAGN400T PO; +MAGN400T3 PO
[2018-12-23 12:15] LABS: HEMATOCRIT 37.9 % (42.0-52.0); MEAN CORPUSCULAR HEMOGLOBIN 27.8 pg (27.0-33.0); MEAN CORPUSCULAR HGB CONC 31.7 g/dl (32.0-36.5); MEAN CORPUSCULAR VOLUME 87.9 fl (80.0-96.0); PLATELET COUNT, AUTOMATED 259 10^3/uL (150-450); RED BLOOD COUNT 4.31 10^6/uL (4.30-6.10); WHITE BLOOD COUNT 6.7 10^3/uL (4.0-10.0)
[2018-12-23 12:32] LABS: ALBUMIN 3.7 GM/DL (3.2-5.2); BILIRUBIN,TOTAL 0.7 MG/DL (0.2-1.0); CALCIUM LEVEL 9.3 MG/DL (8.8-10.2); CHOLESTEROL RISK RATIO 3.74 (<5); CREATININE FOR GFR 1.8 MG/DL (0.70-1.30); GLOMERULAR FILTRATION RATE 38.7 (>35); PERCENT SATURATION 34.2 % (19.7-50.0); TOTAL PROTEIN 6.9 GM/DL (6.4-8.2)
[2018-12-23 12:33] LABS: HEMOGLOBIN A1c 8.8 %
== END ==
LOC: M WUC 09:52
PROVIDERS: ATTEND Family Medicine
DX: I25.10 Atherosclerotic heart disease of native coronary artery without angina pectoris (principal); D63.1 Anemia in chronic kidney disease; N18.9 Chronic kidney disease, unspecified; E08.621 Diabetes mellitus due to underlying condition with foot ulcer

== ENCOUNTER → 2018-12-28 | Outpatient (REF) | payer MEDICARE | LOC: M LAB REF 14:51 | PROVIDERS: ATTEND Podiatrist | DX: M79.672 Pain in left foot (principal); L03.032 Cellulitis of left toe ==

== ENCOUNTER → 2019-03-23 | Outpatient (CLI) | payer MEDICARE ==
[~2019-03-23] MED LIST changes: +BISO5TAB14 PO; -BISO5TAB9 PO; -GLIM2TAB2 PO; +GLIM2TAB4 PO; +OMEP1CAP73 PO; -OMEP20CA4 PO
[2019-03-23 13:02] LABS: CALCIUM LEVEL 9.1 MG/DL (8.8-10.2); CREATININE FOR GFR 1.78 MG/DL (0.70-1.30); GLOMERULAR FILTRATION RATE 39.2 (>35); POTASSIUM SERUM 5.4 MEQ/L (3.5-5.1)
== END ==
LOC: M WUC 08:47
PROVIDERS: ATTEND Family Medicine
DX: E11.40 Type 2 diabetes mellitus with diabetic neuropathy, unspecified (principal)

== ENCOUNTER → 2019-04-07 | Outpatient (REF) | payer MEDICARE | LOC: M LAB REF 15:22 | PROVIDERS: ATTEND Podiatrist | DX: L03.031 Cellulitis of right toe (principal); M79.672 Pain in left foot ==

== ENCOUNTER → 2019-10-13 | Outpatient (REF) | payer MEDICARE ==
[~2019-10-13] MED LIST changes: +ACET650T61 PO; +IRBE75TA4 PO; -IRBE75TA5 PO; -TYLE650T35 PO
[2019-11-15 11:39] LABS: HEMATOCRIT 38.4 % (42.0-52.0); HEMOGLOBIN 12.3 g/dl (13.5-17.5); MEAN CORPUSCULAR HEMOGLOBIN 27.9 pg (27.0-33.0); MEAN CORPUSCULAR VOLUME 87.1 fl (80.0-96.0); PLATELET COUNT, AUTOMATED 230 10^3/uL (150-450); RED BLOOD COUNT 4.41 10^6/uL (4.30-6.10); WHITE BLOOD COUNT 5.7 10^3/uL (4.0-10.0)
[2019-11-28 11:02] LABS: ALBUMIN 3.4 GM/DL (3.2-5.2); BILIRUBIN,TOTAL 0.5 MG/DL (0.2-1.0); CALCIUM LEVEL 8.9 MG/DL (8.8-10.2); CHOLESTEROL RISK RATIO 3.75 (<5); CREATININE FOR GFR 1.55 MG/DL (0.70-1.30); GLOMERULAR FILTRATION RATE 45.9 (>35); HEMOGLOBIN A1c 9.9 %; POTASSIUM SERUM 4.9 MEQ/L (3.5-5.1); TOTAL PROTEIN 6.6 GM/DL (6.4-8.2)
== END ==
LOC: M LABWUC 11:23
PROVIDERS: ATTEND Family Medicine
DX: E11.40 Type 2 diabetes mellitus with diabetic neuropathy, unspecified (principal); N18.3 Chronic kidney disease, stage 3 (moderate); D63.1 Anemia in chronic kidney disease; I25.10 Atherosclerotic heart disease of native coronary artery without angina pectoris

== ENCOUNTER → 2020-01-18 | Outpatient (CLI) | payer MEDICARE ==
[2020-01-18 10:54] LABS: CALCIUM LEVEL 9.3 MG/DL (8.8-10.2); CREATININE FOR GFR 1.65 MG/DL (0.70-1.30); GLOMERULAR FILTRATION RATE 42.7 (>35)
[2020-01-18 12:13] LABS: HEMOGLOBIN A1c 8.7 %
== END ==
LOC: M WUC 08:05
PROVIDERS: ATTEND Family Medicine
DX: E11.9 Type 2 diabetes mellitus without complications (principal)

== ENCOUNTER → 2020-04-19 | Outpatient (CLI) | payer MEDICARE ==
[~2020-04-19] MED LIST changes: +GABA-282; -GABA-843
[2020-04-19 10:17] LABS: CREATININE FOR GFR 1.8 MG/DL (0.70-1.30); GLOMERULAR FILTRATION RATE 38.6 (>35); POTASSIUM SERUM 5.1 MEQ/L (3.5-5.1)
[2020-04-19 10:23] LABS: HEMOGLOBIN A1c 9.4 %
== END ==
LOC: M WUC 08:31
PROVIDERS: ATTEND Family Medicine
DX: E11.40 Type 2 diabetes mellitus with diabetic neuropathy, unspecified (principal)

== ENCOUNTER → 2020-08-21 | Outpatient (CLI) | payer MEDICARE ==
[2020-08-21 10:03] LABS: HEMATOCRIT 38.5 % (42.0-52.0); MEAN CORPUSCULAR HEMOGLOBIN 27.6 pg (27.0-33.0); MEAN CORPUSCULAR HGB CONC 31.2 g/dl (32.0-36.5); MEAN CORPUSCULAR VOLUME 88.5 fl (80.0-96.0); PLATELET COUNT, AUTOMATED 206 10^3/uL (150-450); RED BLOOD COUNT 4.35 10^6/uL (4.30-6.10); WHITE BLOOD COUNT 6.1 10^3/uL (4.0-10.0)
[2020-08-21 11:03] LABS: CALCIUM LEVEL 8.3 MG/DL (8.8-10.2); CREATININE FOR GFR 1.61 MG/DL (0.70-1.30); POTASSIUM SERUM 4.5 MEQ/L (3.5-5.1)
== END ==
LOC: M WUC 08:07
PROVIDERS: ATTEND Family Medicine
DX: E11.40 Type 2 diabetes mellitus with diabetic neuropathy, unspecified (principal); D63.1 Anemia in chronic kidney disease

== ENCOUNTER → 2020-12-20 | Outpatient (CLI) | payer MEDICARE ==
[~2020-12-20] MED LIST changes: -MAGN400T3 PO; +MAGN400T33 PO
[2020-12-20 11:25] LABS: CALCIUM LEVEL 9.1 MG/DL (8.8-10.2); CREATININE FOR GFR 1.66 MG/DL (0.70-1.30); GLOMERULAR FILTRATION RATE 42.3 (>35); POTASSIUM SERUM 4.5 MEQ/L (3.5-5.1)
== END ==
LOC: M WUC 08:10
PROVIDERS: ATTEND Family Medicine
DX: E11.40 Type 2 diabetes mellitus with diabetic neuropathy, unspecified (principal)

== ENCOUNTER → 2021-04-17 | Outpatient (CLI) | payer MEDICARE ==
[2021-04-17 11:37] LABS: BASO # 0.1 10^3/uL (0.0-0.2); EOS # 0.3 10^3/uL (0.0-0.5); EOS % 4.5 % (0.0-3.0); HEMATOCRIT 38.7 % (42.0-52.0); HEMOGLOBIN 12.2 g/dl (13.5-17.5); LYMPH # 1.1 10^3/uL (1.5-5.0); LYMPH % 18.9 % (24.0-44.0); MEAN CORPUSCULAR HEMOGLOBIN 27.8 pg (27.0-33.0); MEAN CORPUSCULAR HGB CONC 31.5 g/dl (32.0-36.5); MEAN CORPUSCULAR VOLUME 88.2 fl (80.0-96.0); MONO # 0.7 10^3/uL (0.0-0.8); MONO % 11.4 % (2.0-8.0); NEUTROPHILS # 3.8 10^3/uL (1.5-8.5); NEUTROPHILS % 63.9 % (36.0-66.0); PLATELET COUNT, AUTOMATED 230 10^3/uL (150-450); RED BLOOD COUNT 4.39 10^6/uL (4.30-6.10)
[2021-04-17 12:06] LABS: HEMOGLOBIN A1c 9.1 %
[2021-04-17 12:20] LABS: CALCIUM LEVEL 8.9 MG/DL (8.8-10.2); CHOLESTEROL RISK RATIO 3.38 (<5); CREATININE FOR GFR 1.84 MG/DL (0.70-1.30); GLOMERULAR FILTRATION RATE 37.6 (>35); MAGNESIUM LEVEL 1.9 MG/DL (1.8-2.4); POTASSIUM SERUM 5.1 MEQ/L (3.5-5.1)
== END ==
LOC: M WUC 08:08
PROVIDERS: ATTEND Family Medicine
DX: E11.40 Type 2 diabetes mellitus with diabetic neuropathy, unspecified (principal); I25.10 Atherosclerotic heart disease of native coronary artery without angina pectoris; D63.1 Anemia in chronic kidney disease

== ENCOUNTER → 2021-05-31 | Outpatient (REF) | payer MEDICARE | LOC: M LAB REF 15:29 | PROVIDERS: ATTEND Podiatrist | DX: M79.671 Pain in right foot (principal); L03.031 Cellulitis of right toe ==

== ENCOUNTER → 2021-07-31 | Outpatient (REF) | payer MEDICARE ==
[~2021-07-31] MED LIST changes: +AMOX500T2 PO; +GLIM1TAB4 PO; +PRAV80TA2 PO
== END ==
LOC: M LAB REF 15:34
PROVIDERS: ATTEND Podiatrist
DX: L03.125 Acute lymphangitis of right lower limb (principal); M79.671 Pain in right foot

== ENCOUNTER 2021-08-02 15:14 | Inpatient (IN) | payer MEDICARE ==
[~2021-08-02] VITALS: Ht 180.3 cm; Wt 76.4 kg
[~2021-08-02 15:14] MED LIST changes: -AMOX500T2 PO; -GLIM1TAB4 PO; -PRAV80TA2 PO
[2021-08-02] MEDS ORDERED: AMOX500T2 PO (15:31)
[2021-08-02 18:00] LABS: BASO # 0.1 10^3/uL (0.0-0.2); BASO % 0.4 % (0.0-1.0); EOS % 0.3 % (0.0-3.0); HEMATOCRIT 37.1 % (42.0-52.0); HEMOGLOBIN 11.8 g/dl (13.5-17.5); LYMPH # 0.6 10^3/uL (1.5-5.0); LYMPH % 4.4 % (24.0-44.0); MEAN CORPUSCULAR HEMOGLOBIN 27.2 pg (27.0-33.0); MEAN CORPUSCULAR HGB CONC 31.8 g/dl (32.0-36.5); MEAN CORPUSCULAR VOLUME 85.5 fl (80.0-96.0); MONO # 0.9 10^3/uL (0.0-0.8); MONO % 6.9 % (2.0-8.0); NEUTROPHILS # 11.8 10^3/uL (1.5-8.5); NEUTROPHILS % 87.6 % (36.0-66.0); PLATELET COUNT, AUTOMATED 283 10^3/uL (150-450); RED BLOOD COUNT 4.34 10^6/uL (4.30-6.10); WHITE BLOOD COUNT 13.5 10^3/uL (4.0-10.0)
[2021-08-02 18:19] LABS: C REACTIVE PROTEIN QUANTITATIV 18.4 MG/DL (0.00-0.30); CALCIUM LEVEL 8.7 MG/DL (8.8-10.2); CREATININE FOR GFR 2.07 MG/DL (0.70-1.30); GLOMERULAR FILTRATION RATE 32.8 (>35); POTASSIUM SERUM 5.1 MEQ/L (3.5-5.1)
[2021-08-02 18:29] LABS: ERYTHROCYTE SEDIMENTATION RATE 77 mm/hr (0-20)
[2021-08-02] MEDS ORDERED: ceFAZolin SOD 2 GM in IV 1 EA IV ONE (20:40)
[2021-08-02] MEDS ORDERED: PRAV80TA2 PO (20:44)
[2021-08-02] MEDS ORDERED: GLIM1TAB4 PO (20:44)
[2021-08-02] MEDS ORDERED: HOME MED LIST COMPLETE! XX SCH (20:45)
[2021-08-02] MEDS ORDERED: GLUCOSE 4GM CHEW TABLET PO PRN (21:35)
[2021-08-02] MEDS ORDERED: DEXTROSE 50% 50 ML SYRINGE IV PRN (21:35)
[2021-08-02] MEDS ORDERED: NS 500 ML IV ONE (21:35)
[2021-08-02] MEDS ORDERED: GLUCAGON INJ 1MG VIAL SC PRN (21:35)
[2021-08-02] MEDS ORDERED: ACETAMINOPHEN TAB 650MG DOSE (2X325MG) PO PRN (21:35)
[2021-08-02 21:37] LABS: RSV AMPLIFICATION NEGATIVE (NEGATIVE)
[2021-08-02] MEDS ORDERED: ONDANSETRON 4MG 2ML VIAL IV PRN (22:30)
[2021-08-03] VITALS (8 sets, daily range): BP systolic 112–169; BP diastolic 58–79; O2SAT 95
[2021-08-03] MEDS ORDERED: **hydrALAZINE** 10 MG TAB PO PRN (01:00)
[2021-08-03] MEDS: INSULIN LISPRO (NovoLOG) PER UNIT SC SCH ×5 (02:02→20:29)
[2021-08-03] MEDS: LR 1,000 ML IV SCH ×3 (02:02→20:33)
[2021-08-03] MEDS ORDERED: PANTOPRAZOLE 40MG VIAL IV ONE (06:00)
[2021-08-03] MEDS ORDERED: HEPARIN SOD (PORCINE) 5000UNITS/ML 1ML VIAL/SYRINGE SQ SCH (06:00)
[2021-08-03] MEDS: ceFAZolin SOD 2 GM in D5W MINI-BAG PLUS 50 ML IV SCH ×3 (06:19→21:02)
[2021-08-03 06:23] LABS: HEMATOCRIT 32.2 % (42.0-52.0); HEMOGLOBIN 10.4 g/dl (13.5-17.5); MEAN CORPUSCULAR HEMOGLOBIN 27.2 pg (27.0-33.0); MEAN CORPUSCULAR HGB CONC 32.3 g/dl (32.0-36.5); MEAN CORPUSCULAR VOLUME 84.3 fl (80.0-96.0); PLATELET COUNT, AUTOMATED 240 10^3/uL (150-450); RED BLOOD COUNT 3.82 10^6/uL (4.30-6.10); WHITE BLOOD COUNT 9.3 10^3/uL (4.0-10.0)
[2021-08-03 06:30] LABS: INR 1.21; PROTHROMBIN TIME 15.7 SECONDS (12.7-14.5)
[2021-08-03 06:31] LABS: PARTIAL THROMBOPLASTIN TIME 36.9 SECONDS (25.9-37.0)
[2021-08-03 06:54] LABS: C REACTIVE PROTEIN QUANTITATIV 14.6 MG/DL (0.00-0.30); CREATININE FOR GFR 1.8 MG/DL (0.70-1.30); GLOMERULAR FILTRATION RATE 38.6 (>35); MAGNESIUM LEVEL 1.8 MG/DL (1.8-2.4); POTASSIUM SERUM 4.2 MEQ/L (3.5-5.1)
[2021-08-03 06:56] LABS: BLOOD UREA NITROGEN 31 MG/DL (7-18); CALCIUM LEVEL 8.6 MG/DL (8.8-10.2); CARBON DIOXIDE LEVEL 27 MEQ/L (21-32); CHLORIDE LEVEL 105 MEQ/L (98-107); CREATININE FOR GFR 1.84 MG/DL (0.70-1.30); FERRITIN 69 NG/ML (26-388); GLOMERULAR FILTRATION RATE 37.6 (>35); GLUCOSE, FASTING 142 MG/DL (70-100); IRON (FE) 23 UG/DL (65-175); MAGNESIUM LEVEL 1.8 MG/DL (1.8-2.4); PERCENT SATURATION 9.9 % (19.7-50.0); POTASSIUM SERUM 4.4 MEQ/L (3.5-5.1); SODIUM LEVEL 137 MEQ/L (136-145); TOTAL IRON BINDING CAPACITY 233 UG/DL (250-450)
[2021-08-03 07:01] LABS: ERYTHROCYTE SEDIMENTATION RATE 82 mm/hr (0-20)
[2021-08-03 08:11] LABS: FOLATE > 24.0 NG/ML (>5.4); VITAMIN B12 LEVEL 1771 PG/ML (247-911)
[2021-08-03] MEDS: CYANOCOBALAMIN 500 MCG TAB PO SCH (09:00)
[2021-08-03] MEDS: LACTOBACILLUS ACIDOPHILUS CAP (BACID) PO SCH (11:10)
[2021-08-03] MEDS ORDERED: propofoL 500 MG/50 ML VIAL As Ordered ONE (13:31)
[2021-08-03] MEDS ORDERED: LIDOCAINE 2% 100MG/5ML SDV (FOR ANES.) As Ordered ONE (13:31)
[2021-08-03] MEDS ORDERED: fentaNYL 100 MCG/2 ML INJECTION As Ordered ONE (13:32)
[2021-08-03] MEDS ORDERED: MIDAZOLAM INJ 2MG/2ML VIAL (J2250 PER 1MG) As Ordered ONE (13:32)
[2021-08-03] MEDS ORDERED: GENTAMICIN SULF 80MG/2ML VIAL As Ordered ONE ×2 (13:37→14:34)
[2021-08-03] MEDS ORDERED: LIDOCAINE 2% MDV 20ML VIAL As Ordered ONE (13:38)
[2021-08-03] MEDS ORDERED: ceFAZolin 2 GM/D5W 50 ML IV BAG (J0690 PER 500MG) As Ordered ONE (13:57)
[2021-08-03] MEDS ORDERED: ROPIvacaine 0.5% 30ML INJECTION (J2795 PER 1MG) As Ordered ONE (14:09)
[2021-08-03] MEDS ORDERED: ONDANSETRON 4MG 2ML VIAL As Ordered ONE (14:32)
[2021-08-03] MEDS ORDERED: fentaNYL 100 MCG/2 ML INJECTION IV PRN (15:30)
[2021-08-03] MEDS ORDERED: ONDANSETRON 4MG 2ML VIAL IV PRN (15:30)
[2021-08-03] MEDS ORDERED: LR 1,000 ML IV SCH (15:30)
[2021-08-03] MEDS: bisoproloL fumarate 5 MG TAB PO SCH (18:05)
[2021-08-03] MEDS: PRAVASTATIN 20 MG TAB PO SCH (18:05)
[2021-08-03] MEDS ORDERED: MIRALAX *UNIT DOSE* 17GM PACKET PO PRN (19:00)
[2021-08-03] MEDS: DOCUSATE SODIUM 100MG CAPSULE PO SCH (20:32)
[2021-08-03] MEDS: FERROUS SULFATE 325MG TAB PO SCH (20:32)
[2021-08-04] VITALS (8 sets, daily range): BP systolic 100–151; BP diastolic 60–80; O2SAT 95
[2021-08-04] MEDS: LR 1,000 ML IV SCH (04:03)
[2021-08-04] MEDS: ceFAZolin SOD 2 GM in D5W MINI-BAG PLUS 50 ML IV SCH ×3 (05:10→21:14)
[2021-08-04 06:37] LABS: HEMATOCRIT 37.7 % (42.0-52.0); HEMOGLOBIN 11.9 g/dl (13.5-17.5); MEAN CORPUSCULAR HEMOGLOBIN 27.7 pg (27.0-33.0); MEAN CORPUSCULAR HGB CONC 31.6 g/dl (32.0-36.5); MEAN CORPUSCULAR VOLUME 87.7 fl (80.0-96.0); PLATELET COUNT, AUTOMATED 233 10^3/uL (150-450); WHITE BLOOD COUNT 8.3 10^3/uL (4.0-10.0)
[2021-08-04 07:03] LABS: CREATININE FOR GFR 2.12 MG/DL (0.70-1.30)
[2021-08-04 07:04] LABS: ALBUMIN 1.7 GM/DL (3.2-5.2); BILIRUBIN,TOTAL 0.3 MG/DL (0.2-1.0); CALCIUM LEVEL 8.5 MG/DL (8.8-10.2); GLOMERULAR FILTRATION RATE 31.9 (>35); POTASSIUM SERUM 4.9 MEQ/L (3.5-5.1); TOTAL PROTEIN 6.3 GM/DL (6.4-8.2)
[2021-08-04] MEDS: INSULIN LISPRO (NovoLOG) PER UNIT SC SCH ×4 (07:46→20:39)
[2021-08-04] MEDS: DOCUSATE SODIUM 100MG CAPSULE PO SCH ×2 (08:25→20:40)
[2021-08-04] MEDS: LACTOBACILLUS ACIDOPHILUS CAP (BACID) PO SCH (08:25)
[2021-08-04] MEDS: CYANOCOBALAMIN 500 MCG TAB PO SCH (08:25)
[2021-08-04] MEDS: FERROUS SULFATE 325MG TAB PO SCH ×2 (08:25→20:40)
[2021-08-04] MEDS ORDERED: LEVEMIR (INSULIN DETEMIR) 1 UNITS/0.01ML SC SCH (09:00)
[2021-08-04] MEDS ORDERED: ASPIRIN 81MG ENTERIC TABLET PO SCH (09:00)
[2021-08-04] MEDS: OMEPRAZOLE 20MG CAP PO SCH (09:08)
[2021-08-04] MEDS: PRAVASTATIN 20 MG TAB PO SCH (17:43)
[2021-08-04] MEDS: bisoproloL fumarate 5 MG TAB PO SCH (18:00)
[2021-08-04] MEDS: HEPARIN SOD (PORCINE) 5000UNITS/ML 1ML VIAL/SYRINGE SQ SCH (20:40)
[2021-08-05 06:00] VITALS: BP 140/77
[2021-08-05] MEDS: ceFAZolin SOD 2 GM in D5W MINI-BAG PLUS 50 ML IV SCH ×2 (06:11→14:32)
[2021-08-05 07:01] LABS: HEMATOCRIT 29.9 % (42.0-52.0); HEMOGLOBIN 9.6 g/dl (13.5-17.5); MEAN CORPUSCULAR HEMOGLOBIN 27.7 pg (27.0-33.0); MEAN CORPUSCULAR HGB CONC 32.1 g/dl (32.0-36.5); MEAN CORPUSCULAR VOLUME 86.2 fl (80.0-96.0); PLATELET COUNT, AUTOMATED 258 10^3/uL (150-450); RED BLOOD COUNT 3.47 10^6/uL (4.30-6.10); WHITE BLOOD COUNT 8.3 10^3/uL (4.0-10.0)
[2021-08-05 07:21] LABS: ALBUMIN 1.8 GM/DL (3.2-5.2); BILIRUBIN,TOTAL 0.4 MG/DL (0.2-1.0); CREATININE FOR GFR 2.12 MG/DL (0.70-1.30); GLOMERULAR FILTRATION RATE 31.9 (>35); POTASSIUM SERUM 4.5 MEQ/L (3.5-5.1); TOTAL PROTEIN 6.2 GM/DL (6.4-8.2)
[2021-08-05] MEDS: CYANOCOBALAMIN 500 MCG TAB PO SCH (08:15)
[2021-08-05] MEDS: FERROUS SULFATE 325MG TAB PO SCH ×2 (08:15→20:35)
[2021-08-05] MEDS: DOCUSATE SODIUM 100MG CAPSULE PO SCH ×2 (08:15→20:35)
[2021-08-05] MEDS: INSULIN LISPRO (NovoLOG) PER UNIT SC SCH ×4 (08:15→20:35)
[2021-08-05] MEDS: LACTOBACILLUS ACIDOPHILUS CAP (BACID) PO SCH (08:15)
[2021-08-05] MEDS: OMEPRAZOLE 20MG CAP PO SCH (08:15)
[2021-08-05] MEDS: HEPARIN SOD (PORCINE) 5000UNITS/ML 1ML VIAL/SYRINGE SQ SCH ×2 (08:16→20:35)
[2021-08-05 14:00] VITALS: BP 148/72
[2021-08-05] MEDS ORDERED: ceFAZolin SOD 2 GM in IV 1 EA IV SCH (14:45)
[2021-08-05] MEDS: ceFAZolin SOD 2 GM in IV 1 EA IV SCH ×2 (14:51→23:14)
[2021-08-05] MEDS: PRAVASTATIN 20 MG TAB PO SCH (17:27)
[2021-08-05] MEDS: bisoproloL fumarate 5 MG TAB PO SCH (17:27)
[2021-08-05] MEDS: LEVEMIR (INSULIN DETEMIR) 1 UNITS/0.01ML SC SCH (20:35)
[2021-08-05 22:00] VITALS: BP 159/79
[2021-08-06 06:00] VITALS: BP 158/73
[2021-08-06] MEDS: ceFAZolin SOD 2 GM in IV 1 EA IV SCH (06:18)
[2021-08-06] MEDS: LACTOBACILLUS ACIDOPHILUS CAP (BACID) PO SCH (08:04)
[2021-08-06] MEDS: HEPARIN SOD (PORCINE) 5000UNITS/ML 1ML VIAL/SYRINGE SQ SCH ×2 (08:04→21:21)
[2021-08-06] MEDS: DOCUSATE SODIUM 100MG CAPSULE PO SCH ×2 (08:04→21:21)
[2021-08-06] MEDS: FERROUS SULFATE 325MG TAB PO SCH ×2 (08:04→21:21)
[2021-08-06] MEDS: CYANOCOBALAMIN 500 MCG TAB PO SCH (08:04)
[2021-08-06] MEDS: OMEPRAZOLE 20MG CAP PO SCH (08:04)
[2021-08-06] MEDS: INSULIN LISPRO (NovoLOG) PER UNIT SC SCH ×4 (08:05→21:00)
[2021-08-06] MEDS: AMPICILLIN SOD/SULBACTAM SOD 3 GM in D5W MINI-BAG PLUS 100 ML IV SCH (12:45)
[2021-08-06 14:00] VITALS: BP 143/52
[2021-08-06] MEDS: PRAVASTATIN 20 MG TAB PO SCH (17:32)
[2021-08-06] MEDS: bisoproloL fumarate 5 MG TAB PO SCH (17:33)
[2021-08-06 20:05] VITALS: BP 146/67
[2021-08-06] MEDS: LEVEMIR (INSULIN DETEMIR) 1 UNITS/0.01ML SC SCH (21:22)
[2021-08-07] MEDS: AMPICILLIN SOD/SULBACTAM SOD 3 GM in D5W MINI-BAG PLUS 100 ML IV SCH ×2 (00:27→12:49)
[2021-08-07 05:48] VITALS: BP 130/67
[2021-08-07 06:21] LABS: HEMATOCRIT 29.1 % (42.0-52.0); HEMOGLOBIN 9.4 g/dl (13.5-17.5); MEAN CORPUSCULAR HEMOGLOBIN 27.7 pg (27.0-33.0); MEAN CORPUSCULAR HGB CONC 32.3 g/dl (32.0-36.5); MEAN CORPUSCULAR VOLUME 85.8 fl (80.0-96.0); PLATELET COUNT, AUTOMATED 268 10^3/uL (150-450); RED BLOOD COUNT 3.39 10^6/uL (4.30-6.10); WHITE BLOOD COUNT 7.7 10^3/uL (4.0-10.0)
[2021-08-07 06:45] LABS: CALCIUM LEVEL 8.3 MG/DL (8.8-10.2); CREATININE FOR GFR 2.02 MG/DL (0.70-1.30); GLOMERULAR FILTRATION RATE 33.7 (>35); POTASSIUM SERUM 4.4 MEQ/L (3.5-5.1)
[2021-08-07] MEDS: INSULIN LISPRO (NovoLOG) PER UNIT SC SCH ×4 (07:58→21:00)
[2021-08-07] MEDS: OMEPRAZOLE 20MG CAP PO SCH (07:58)
[2021-08-07] MEDS: FERROUS SULFATE 325MG TAB PO SCH ×2 (07:59→21:56)
[2021-08-07] MEDS: DOCUSATE SODIUM 100MG CAPSULE PO SCH ×2 (07:59→21:56)
[2021-08-07] MEDS: CYANOCOBALAMIN 500 MCG TAB PO SCH (07:59)
[2021-08-07] MEDS: LACTOBACILLUS ACIDOPHILUS CAP (BACID) PO SCH (07:59)
[2021-08-07] MEDS: HEPARIN SOD (PORCINE) 5000UNITS/ML 1ML VIAL/SYRINGE SQ SCH ×2 (07:59→21:57)
[2021-08-07 14:00] VITALS: BP 139/78
[2021-08-07] MEDS ORDERED: AMOX500T2 PO (14:13)
[2021-08-07] MEDS ORDERED: FERR1TAB8 PO (14:13)
[2021-08-07] MEDS ORDERED: INSULANT SC (14:13)
[2021-08-07] MEDS ORDERED: RISATAB3 PO (14:13)
[2021-08-07] MEDS: PRAVASTATIN 20 MG TAB PO SCH (17:19)
[2021-08-07 17:22] VITALS: BP 146/76
[2021-08-07] MEDS: bisoproloL fumarate 5 MG TAB PO SCH (17:22)
[2021-08-07] MEDS: LEVEMIR (INSULIN DETEMIR) 1 UNITS/0.01ML SC SCH (21:57)
[2021-08-07 22:00] VITALS: BP 145/75
[2021-08-08] MEDS: AMPICILLIN SOD/SULBACTAM SOD 3 GM in D5W MINI-BAG PLUS 100 ML IV SCH (01:57)
[2021-08-08 06:00] VITALS: BP 158/62
[2021-08-08 06:19] LABS: HEMATOCRIT 31.2 % (42.0-52.0); HEMOGLOBIN 9.8 g/dl (13.5-17.5); MEAN CORPUSCULAR HEMOGLOBIN 26.7 pg (27.0-33.0); MEAN CORPUSCULAR HGB CONC 31.4 g/dl (32.0-36.5); PLATELET COUNT, AUTOMATED 297 10^3/uL (150-450); RED BLOOD COUNT 3.67 10^6/uL (4.30-6.10)
[2021-08-08 06:40] LABS: CALCIUM LEVEL 8.5 MG/DL (8.8-10.2); CREATININE FOR GFR 1.91 MG/DL (0.70-1.30); POTASSIUM SERUM 4.6 MEQ/L (3.5-5.1)
[2021-08-08] MEDS: FERROUS SULFATE 325MG TAB PO SCH (08:17)
[2021-08-08] MEDS: DOCUSATE SODIUM 100MG CAPSULE PO SCH (08:17)
[2021-08-08] MEDS: OMEPRAZOLE 20MG CAP PO SCH (08:17)
[2021-08-08] MEDS: INSULIN LISPRO (NovoLOG) PER UNIT SC SCH ×2 (08:17→12:31)
[2021-08-08] MEDS: HEPARIN SOD (PORCINE) 5000UNITS/ML 1ML VIAL/SYRINGE SQ SCH (08:17)
[2021-08-08] MEDS: CYANOCOBALAMIN 500 MCG TAB PO SCH (08:17)
[2021-08-08] MEDS: LACTOBACILLUS ACIDOPHILUS CAP (BACID) PO SCH (08:17)
[2021-08-08 14:00] VITALS: BP 156/71
== END 2021-08-08 15:20 | disposition home health service (06) | DRG 629 ==
LOC: M ED 15:14 → M ED INP 21:35 → M MS5PR 08-03 00:30
PROVIDERS: ADMIT Family Medicine; ATTEND Family Medicine
PROC: 0QTN0ZZ Resection of Right Metatarsal, Open Approach (ICD-10-PCS; 2021-08-03)
PROC: 0L9V0ZZ Drainage of Right Foot Tendon, Open Approach (ICD-10-PCS; 2021-08-03)
PROC: 0QBN0Z2 Excision of Right Metatarsal, Sesamoid Bone(s) 1st Toe, Open Approach (ICD-10-PCS; principal; 2021-08-03 15:30)
DX: E11.621 Type 2 diabetes mellitus with foot ulcer (principal); M86.161 Other acute osteomyelitis, right tibia and fibula; K62.5 Hemorrhage of anus and rectum; E87.2 Acidosis; N17.9 Acute kidney failure, unspecified; I12.9 Hypertensive chronic kidney disease with stage 1 through stage 4 chronic kidney disease, or unspecified chronic kidney disease; N18.30 Chronic kidney disease, stage 3 unspecified; I25.10 Atherosclerotic heart disease of native coronary artery without angina pectoris; E11.22 Type 2 diabetes mellitus with diabetic chronic kidney disease; L97.519 Non-pressure chronic ulcer of other part of right foot with unspecified severity; E11.649 Type 2 diabetes mellitus with hypoglycemia without coma; M19.90 Unspecified osteoarthritis, unspecified site; M65.171 Other infective (teno)synovitis, right ankle and foot; B95.61 Methicillin susceptible Staphylococcus aureus infection as the cause of diseases classified elsewhere; D50.9 Iron deficiency anemia, unspecified; Z79.899 Other long term (current) drug therapy; Z79.82 Long term (current) use of aspirin; Z88.8 Allergy status to other drugs, medicaments and biological substances; Z88.5 Allergy status to narcotic agent; E78.5 Hyperlipidemia, unspecified

== ENCOUNTER → 2021-08-16 | Outpatient (REF) | payer MEDICARE ==
[~2021-08-16] MED LIST changes: +AMOX500T2 PO; +FERR1TAB8 PO; +GLIM1TAB4 PO; +PRAV80TA2 PO; +RISATAB3 PO
[2021-08-16 16:34] LABS: BASO # 0.1 10^3/uL (0.0-0.2); BASO % 0.7 % (0.0-1.0); EOS # 0.2 10^3/uL (0.0-0.5); EOS % 1.8 % (0.0-3.0); HEMATOCRIT 37.3 % (42.0-52.0); HEMOGLOBIN 11.5 g/dl (13.5-17.5); LYMPH # 0.7 10^3/uL (1.5-5.0); MEAN CORPUSCULAR HEMOGLOBIN 27.1 pg (27.0-33.0); MEAN CORPUSCULAR HGB CONC 30.8 g/dl (32.0-36.5); MONO # 0.6 10^3/uL (0.0-0.8); MONO % 6.1 % (2.0-8.0); NEUTROPHILS # 8.2 10^3/uL (1.5-8.5); NEUTROPHILS % 83.9 % (36.0-66.0); PLATELET COUNT, AUTOMATED 385 10^3/uL (150-450); RED BLOOD COUNT 4.24 10^6/uL (4.30-6.10); WHITE BLOOD COUNT 9.7 10^3/uL (4.0-10.0)
== END ==
LOC: M SFHCADAM 12:04
PROVIDERS: ATTEND Physician Assistant Medical
DX: L97.408 Non-pressure chronic ulcer of unspecified heel and midfoot with other specified severity (principal); E11.40 Type 2 diabetes mellitus with diabetic neuropathy, unspecified

== ENCOUNTER → 2021-09-10 | Outpatient (REF) | payer MEDICARE | LOC: M LAB REF 13:48 | PROVIDERS: ATTEND Podiatrist | DX: L03.119 Cellulitis of unspecified part of limb (principal); M79.671 Pain in right foot ==

== ENCOUNTER → 2021-09-27 | Outpatient (REF) | payer MEDICARE ==
[~2021-09-27] MED LIST changes: +MULT-40 PO
== END ==
LOC: M SFHCWOUN 15:37
PROVIDERS: ATTEND Surgery
DX: M86.171 Other acute osteomyelitis, right ankle and foot (principal); L97.514 Non-pressure chronic ulcer of other part of right foot with necrosis of bone

== ENCOUNTER 2021-10-01 17:29 | Inpatient (IN) | payer MEDICARE ==
[~2021-10-01] VITALS: Ht 177.8 cm; Wt 74.5 kg
[~2021-10-01 17:29] MED LIST changes: -MULT-40 PO
[2021-10-01 18:40] LABS: BASO % 0.2 % (0.0-1.0); EOS % 0.1 % (0.0-3.0); HEMATOCRIT 36.2 % (42.0-52.0); HEMOGLOBIN 11.5 g/dl (13.5-17.5); LYMPH # 0.5 10^3/uL (1.5-5.0); LYMPH % 3.5 % (24.0-44.0); MEAN CORPUSCULAR HEMOGLOBIN 26.6 pg (27.0-33.0); MEAN CORPUSCULAR HGB CONC 31.8 g/dl (32.0-36.5); MEAN CORPUSCULAR VOLUME 83.8 fl (80.0-96.0); MONO # 1.1 10^3/uL (0.0-0.8); MONO % 7.9 % (2.0-8.0); NEUTROPHILS # 12.3 10^3/uL (1.5-8.5); NEUTROPHILS % 87.2 % (36.0-66.0); PLATELET COUNT, AUTOMATED 432 10^3/uL (150-450); RED BLOOD COUNT 4.32 10^6/uL (4.30-6.10); WHITE BLOOD COUNT 14.1 10^3/uL (4.0-10.0)
[2021-10-01 19:13] LABS: ALBUMIN 2.1 GM/DL (3.2-5.2); BILIRUBIN,DIRECT 0.3 MG/DL (0.0-0.2); BILIRUBIN,TOTAL 0.5 MG/DL (0.2-1.0); C REACTIVE PROTEIN QUANTITATIV 33.6 MG/DL (0.00-0.30); CALCIUM LEVEL 8.9 MG/DL (8.8-10.2); CREATININE FOR GFR 2.76 MG/DL (0.70-1.30); GLOMERULAR FILTRATION RATE 23.5 (>35); POTASSIUM SERUM 4.9 MEQ/L (3.5-5.1); TOTAL PROTEIN 6.8 GM/DL (6.4-8.2)
[2021-10-01 19:18] LABS: RSV AMPLIFICATION NEGATIVE (NEGATIVE)
[2021-10-01 19:21] LABS: ERYTHROCYTE SEDIMENTATION RATE 16 mm/hr (0-20)
[2021-10-01] MEDS ORDERED: VANCOMYCIN HCL 1,500 MG in NS 250 ML IV ONE (19:55)
[2021-10-01] MEDS ORDERED: NS 1,000 ML IV SCH (19:55)
[2021-10-01] MEDS ORDERED: VANCOMYCIN HCL 750 MG, VIAL MATE ADAPTER 1 EACH in D5W 250 ML IV ONE ×2 (20:00→21:00)
[2021-10-01] MEDS: INSULIN LISPRO (NovoLOG) PER UNIT SC SCH (21:00)
[2021-10-01] MEDS ORDERED: ACETAMINOPHEN TAB 650MG DOSE (2X325MG) PO PRN (23:15)
[2021-10-01] MEDS ORDERED: SODIUM CHLORIDE 0.9% 1000ML IV SCH (23:15)
[2021-10-01] MEDS: NS 1,000 ML IV SCH (23:15)
[2021-10-01] MEDS ORDERED: GLUCAGON INJ 1MG VIAL SC PRN (23:15)
[2021-10-01] MEDS ORDERED: DEXTROSE 50% 50 ML SYRINGE IV PRN (23:15)
[2021-10-01] MEDS ORDERED: GLUCOSE 4GM CHEW TABLET PO PRN (23:15)
[2021-10-01] MEDS ORDERED: ASPIRIN 81 MG CHEW TABLET PO ONE (23:55)
[2021-10-02] MEDS ORDERED: MULT-40 PO (00:29)
[2021-10-02] MEDS ORDERED: LANTINJ4 SC (00:29)
[2021-10-02] MEDS ORDERED: HOME MED LIST COMPLETE! XX SCH (00:30)
[2021-10-02 00:53] VITALS: BP 149/77
[2021-10-02 06:00] VITALS: BP 150/70
[2021-10-02 06:53] LABS: ALBUMIN 1.7 GM/DL (3.2-5.2); BILIRUBIN,TOTAL 0.4 MG/DL (0.2-1.0); C REACTIVE PROTEIN QUANTITATIV 26.4 MG/DL (0.00-0.30); CALCIUM LEVEL 8.6 MG/DL (8.8-10.2); CREATININE FOR GFR 2.6 MG/DL (0.70-1.30); GLOMERULAR FILTRATION RATE 25.2 (>35); MAGNESIUM LEVEL 1.7 MG/DL (1.8-2.4); POTASSIUM SERUM 4.3 MEQ/L (3.5-5.1); TOTAL PROTEIN 5.6 GM/DL (6.4-8.2)
[2021-10-02] MEDS: NS 1,000 ML IV SCH (07:25)
[2021-10-02] MEDS: INSULIN LISPRO (NovoLOG) PER UNIT SC SCH ×4 (07:30→21:00)
[2021-10-02 09:26] LABS: BASO % 0.2 % (0.0-1.0); EOS # 0.1 10^3/uL (0.0-0.5); HEMATOCRIT 33.1 % (42.0-52.0); HEMOGLOBIN 10.6 g/dl (13.5-17.5); LYMPH # 0.6 10^3/uL (1.5-5.0); LYMPH % 5.1 % (24.0-44.0); MEAN CORPUSCULAR HEMOGLOBIN 26.8 pg (27.0-33.0); MEAN CORPUSCULAR VOLUME 83.8 fl (80.0-96.0); MONO # 0.9 10^3/uL (0.0-0.8); MONO % 6.9 % (2.0-8.0); NEUTROPHILS # 10.5 10^3/uL (1.5-8.5); NEUTROPHILS % 85.9 % (36.0-66.0); PLATELET COUNT, AUTOMATED 402 10^3/uL (150-450); RED BLOOD COUNT 3.95 10^6/uL (4.30-6.10); WHITE BLOOD COUNT 12.3 10^3/uL (4.0-10.0)
[2021-10-02] MEDS: ASPIRIN 81MG ENTERIC TABLET PO SCH (09:50)
[2021-10-02] MEDS: HEPARIN SOD (PORCINE) 5000UNITS/ML 1ML VIAL/SYRINGE SC SCH ×2 (09:51→21:34)
[2021-10-02] MEDS: LEVEMIR (INSULIN DETEMIR) 1 UNITS/0.01ML SC SCH (09:51)
[2021-10-02 10:07] LABS: CK-MB VALUE MASS 3.3 NG/ML (<3.6); MB/CK RELATIVE INDEX 6.47 (< OR =4)
[2021-10-02 10:12] LABS: ALBUMIN 1.8 GM/DL (3.2-5.2); BILIRUBIN,TOTAL 0.5 MG/DL (0.2-1.0); CALCIUM LEVEL 8.5 MG/DL (8.8-10.2); CREATININE FOR GFR 2.53 MG/DL (0.70-1.30); POTASSIUM SERUM 4.2 MEQ/L (3.5-5.1); TOTAL PROTEIN 6.1 GM/DL (6.4-8.2)
[2021-10-02 14:00] VITALS: BP 158/80
[2021-10-02] MEDS ORDERED: VANCOMYCIN HCL 1,000 MG, VIAL MATE ADAPTER 1 EACH in NS 250 ML IV SCH (20:00)
[2021-10-02 21:18] VITALS: BP 166/89
[2021-10-03] VITALS (9 sets, daily range): BP systolic 112–173; BP diastolic 73–97
[2021-10-03 06:03] LABS: BASO % 0.2 % (0.0-1.0); EOS # 0.1 10^3/uL (0.0-0.5); EOS % 0.9 % (0.0-3.0); HEMATOCRIT 27.1 % (42.0-52.0); HEMOGLOBIN 8.9 g/dl (13.5-17.5); LYMPH # 0.6 10^3/uL (1.5-5.0); LYMPH % 5.9 % (24.0-44.0); MEAN CORPUSCULAR HEMOGLOBIN 27.1 pg (27.0-33.0); MEAN CORPUSCULAR HGB CONC 32.8 g/dl (32.0-36.5); MEAN CORPUSCULAR VOLUME 82.4 fl (80.0-96.0); MONO # 0.7 10^3/uL (0.0-0.8); MONO % 7.1 % (2.0-8.0); NEUTROPHILS # 8.1 10^3/uL (1.5-8.5); PLATELET COUNT, AUTOMATED 343 10^3/uL (150-450); RED BLOOD COUNT 3.29 10^6/uL (4.30-6.10); WHITE BLOOD COUNT 9.5 10^3/uL (4.0-10.0)
[2021-10-03 06:34] LABS: ERYTHROCYTE SEDIMENTATION RATE 127 mm/hr (0-20)
[2021-10-03] MEDS: INSULIN LISPRO (NovoLOG) PER UNIT SC SCH ×4 (07:30→20:44)
[2021-10-03 07:32] LABS: ALBUMIN 1.5 GM/DL (3.2-5.2); ALT/SGPT 450 U/L (12-78); BILIRUBIN,DIRECT 0.3 MG/DL (0.0-0.2); BILIRUBIN,TOTAL 0.7 MG/DL (0.2-1.0); BLOOD UREA NITROGEN 49 MG/DL (7-18); CALCIUM LEVEL 7.8 MG/DL (8.8-10.2); CARBON DIOXIDE LEVEL 20 MEQ/L (21-32); CHLORIDE LEVEL 107 MEQ/L (98-107); CREATININE FOR GFR 2.69 MG/DL (0.70-1.30); GLOMERULAR FILTRATION RATE 24.2 (>35); GLUCOSE, FASTING 104 MG/DL (70-100); POTASSIUM SERUM 4.2 MEQ/L (3.5-5.1); SODIUM LEVEL 135 MEQ/L (136-145); TOTAL PROTEIN 5.2 GM/DL (6.4-8.2)
[2021-10-03] MEDS: HEPARIN SOD (PORCINE) 5000UNITS/ML 1ML VIAL/SYRINGE SC SCH ×2 (09:00→20:38)
[2021-10-03] MEDS: LEVEMIR (INSULIN DETEMIR) 1 UNITS/0.01ML SC SCH (09:00)
[2021-10-03] MEDS: ASPIRIN 81MG ENTERIC TABLET PO SCH (09:10)
[2021-10-03] MEDS ORDERED: NS 1,000 ML IV SCH (10:25)
[2021-10-03 10:47] LABS: HEPATITIS B SURFACE ANTIGEN NEGATIVE (NEGATIVE)
[2021-10-03 11:06] LABS: HEPATITIS C VIRUS ABY INDEX < 0.0 INDEX (<0.8)
[2021-10-03 11:15] LABS: HEPATITIS B CORE ANTIBODY IGM NEGATIVE (NEGATIVE)
[2021-10-03 12:05] LABS: NT-PRO BNP 23464 PG/ML (<450)
[2021-10-03] MEDS ORDERED: propofoL 200 MG/20 ML VIAL As Ordered ONE (12:48)
[2021-10-03] MEDS ORDERED: fentaNYL 100 MCG/2 ML INJECTION As Ordered ONE (12:48)
[2021-10-03] MEDS ORDERED: MIDAZOLAM INJ 2MG/2ML VIAL (J2250 PER 1MG) As Ordered ONE (12:48)
[2021-10-03] MEDS ORDERED: LIDOCAINE 2% 100MG/5ML SDV (FOR ANES.) As Ordered ONE (12:48)
[2021-10-03 12:52] LABS: CK-MB VALUE MASS 2.6 NG/ML (<3.6); MB/CK RELATIVE INDEX 7.65 (< OR =4)
[2021-10-03] MEDS ORDERED: BUPIVACAINE HCL 0.5% 30ML VIAL As Ordered ONE (13:16)
[2021-10-03] MEDS ORDERED: LIDOCAINE 2% MDV 20ML VIAL As Ordered ONE (13:16)
[2021-10-03] MEDS ORDERED: VANCOMYCIN 500MG/10ML VIAL As Ordered ONE (13:16)
[2021-10-03] MEDS ORDERED: GENTAMICIN SULF 80MG/2ML VIAL As Ordered ONE (13:17)
[2021-10-03] MEDS ORDERED: LABETALOL 100MG/20ML VIAL As Ordered ONE (13:56)
[2021-10-03] MEDS ORDERED: VANCOMYCIN 1000MG/20ML VIAL As Ordered ONE (14:07)
[2021-10-03] MEDS ORDERED: fentaNYL 100 MCG/2 ML INJECTION IV PRN (14:50)
[2021-10-03] MEDS ORDERED: oxyCODONE 5MG TAB PO PRN (14:50)
[2021-10-03] MEDS ORDERED: LR 1,000 ML IV SCH (14:50)
[2021-10-03] MEDS ORDERED: ONDANSETRON 4MG 2ML VIAL IV PRN (14:50)
[2021-10-03] MEDS ORDERED: PERCOCET 5MG/325MG TAB PO PRN ×2 (15:50)
[2021-10-03] MEDS: PRAVASTATIN 20 MG TAB PO SCH (20:38)
[2021-10-03] MEDS: bisoproloL fumarate 5 MG TAB PO SCH (20:38)
[2021-10-03] MEDS: VANCOMYCIN HCL 750 MG, VIAL MATE ADAPTER 1 EACH in D5W 250 ML IV SCH (22:10)
[2021-10-04 02:00] VITALS: BP 130/72
[2021-10-04 06:00] VITALS: BP 133/73
[2021-10-04 06:55] LABS: BASO % 0.4 % (0.0-1.0); EOS # 0.1 10^3/uL (0.0-0.5); EOS % 1.5 % (0.0-3.0); HEMATOCRIT 25.7 % (42.0-52.0); HEMOGLOBIN 8.5 g/dl (13.5-17.5); LYMPH # 0.6 10^3/uL (1.5-5.0); LYMPH % 7.3 % (24.0-44.0); MEAN CORPUSCULAR HEMOGLOBIN 27.2 pg (27.0-33.0); MEAN CORPUSCULAR HGB CONC 33.1 g/dl (32.0-36.5); MEAN CORPUSCULAR VOLUME 82.4 fl (80.0-96.0); MONO # 0.7 10^3/uL (0.0-0.8); MONO % 9.2 % (2.0-8.0); NEUTROPHILS # 6.1 10^3/uL (1.5-8.5); NEUTROPHILS % 80.8 % (36.0-66.0); PLATELET COUNT, AUTOMATED 370 10^3/uL (150-450); RED BLOOD COUNT 3.12 10^6/uL (4.30-6.10); WHITE BLOOD COUNT 7.6 10^3/uL (4.0-10.0)
[2021-10-04 07:19] LABS: C REACTIVE PROTEIN QUANTITATIV 16.7 MG/DL (0.00-0.30); CALCIUM LEVEL 7.7 MG/DL (8.8-10.2); CREATININE FOR GFR 3.06 MG/DL (0.70-1.30); GLOMERULAR FILTRATION RATE 20.8 (>35); POTASSIUM SERUM 4.6 MEQ/L (3.5-5.1)
[2021-10-04] MEDS: ASPIRIN 81MG ENTERIC TABLET PO SCH (08:43)
[2021-10-04] MEDS: HEPARIN SOD (PORCINE) 5000UNITS/ML 1ML VIAL/SYRINGE SC SCH ×2 (08:43→21:37)
[2021-10-04] MEDS: LEVEMIR (INSULIN DETEMIR) 1 UNITS/0.01ML SC SCH (08:44)
[2021-10-04] MEDS: INSULIN LISPRO (NovoLOG) PER UNIT SC SCH ×4 (08:44→21:37)
[2021-10-04 09:17] LABS: ERYTHROCYTE SEDIMENTATION RATE 108 mm/hr (0-20)
[2021-10-04 10:00] VITALS: BP 155/79
[2021-10-04 11:34] LABS: ALBUMIN 1.7 GM/DL (3.2-5.2); BILIRUBIN,DIRECT 0.3 MG/DL (0.0-0.2); BILIRUBIN,TOTAL 0.5 MG/DL (0.2-1.0); TOTAL PROTEIN 5.9 GM/DL (6.4-8.2)
[2021-10-04 14:00] VITALS: BP 151/80
[2021-10-04] MEDS ORDERED: MOM 30ML SUSPENSION UDC PO PRN (17:45)
[2021-10-04] MEDS ORDERED: SIMETHICONE 80MG CHEW TAB PO PRN (17:45)
[2021-10-04] MEDS: MIRALAX *UNIT DOSE* 17GM PACKET PO PRN (18:16)
[2021-10-04 20:00] VITALS: BP 147/77
[2021-10-04] MEDS: PRAVASTATIN 20 MG TAB PO SCH (21:37)
[2021-10-04] MEDS: bisoproloL fumarate 5 MG TAB PO SCH (21:38)
[2021-10-04 22:00] VITALS: BP 147/77
[2021-10-04] MEDS: VANCOMYCIN HCL 750 MG, VIAL MATE ADAPTER 1 EACH in D5W 250 ML IV SCH (22:41)
[2021-10-05 05:58] VITALS: BP 132/77
[2021-10-05 06:53] LABS: BASO # 0.1 10^3/uL (0.0-0.2); BASO % 0.5 % (0.0-1.0); EOS # 0.2 10^3/uL (0.0-0.5); HEMATOCRIT 26.9 % (42.0-52.0); HEMOGLOBIN 8.6 g/dl (13.5-17.5); LYMPH # 0.6 10^3/uL (1.5-5.0); MEAN CORPUSCULAR HEMOGLOBIN 26.3 pg (27.0-33.0); MEAN CORPUSCULAR VOLUME 82.3 fl (80.0-96.0); MONO # 0.7 10^3/uL (0.0-0.8); MONO % 7.6 % (2.0-8.0); NEUTROPHILS % 82.6 % (36.0-66.0); PLATELET COUNT, AUTOMATED 409 10^3/uL (150-450); RED BLOOD COUNT 3.27 10^6/uL (4.30-6.10); WHITE BLOOD COUNT 9.6 10^3/uL (4.0-10.0)
[2021-10-05 07:38] LABS: CALCIUM LEVEL 7.8 MG/DL (8.8-10.2); CREATININE FOR GFR 3.16 MG/DL (0.70-1.30); GLOMERULAR FILTRATION RATE 20.1 (>35); POTASSIUM SERUM 4.7 MEQ/L (3.5-5.1)
[2021-10-05] MEDS: ASPIRIN 81MG ENTERIC TABLET PO SCH (08:36)
[2021-10-05] MEDS: HEPARIN SOD (PORCINE) 5000UNITS/ML 1ML VIAL/SYRINGE SC SCH ×2 (08:37→21:25)
[2021-10-05] MEDS: INSULIN LISPRO (NovoLOG) PER UNIT SC SCH ×4 (08:37→21:26)
[2021-10-05] MEDS: LEVEMIR (INSULIN DETEMIR) 1 UNITS/0.01ML SC SCH (08:38)
[2021-10-05 09:47] LABS: ALBUMIN 1.5 GM/DL (3.2-5.2); BILIRUBIN,DIRECT 0.2 MG/DL (0.0-0.2); BILIRUBIN,TOTAL 0.4 MG/DL (0.2-1.0); TOTAL PROTEIN 5.3 GM/DL (6.4-8.2)
[2021-10-05 14:00] VITALS: BP 164/87
[2021-10-05] MEDS: bisoproloL fumarate 5 MG TAB PO SCH (21:27)
[2021-10-05] MEDS: PRAVASTATIN 20 MG TAB PO SCH (21:27)
[2021-10-05 22:00] VITALS: BP 160/85
[2021-10-06 05:12] VITALS: BP 134/76
[2021-10-06 06:03] LABS: BASO % 0.3 % (0.0-1.0); EOS # 0.3 10^3/uL (0.0-0.5); EOS % 2.8 % (0.0-3.0); HEMATOCRIT 27.6 % (42.0-52.0); HEMOGLOBIN 8.6 g/dl (13.5-17.5); LYMPH # 0.8 10^3/uL (1.5-5.0); LYMPH % 6.9 % (24.0-44.0); MEAN CORPUSCULAR HEMOGLOBIN 26.3 pg (27.0-33.0); MEAN CORPUSCULAR HGB CONC 31.2 g/dl (32.0-36.5); MEAN CORPUSCULAR VOLUME 84.4 fl (80.0-96.0); MONO # 0.8 10^3/uL (0.0-0.8); MONO % 6.7 % (2.0-8.0); NEUTROPHILS # 9.5 10^3/uL (1.5-8.5); PLATELET COUNT, AUTOMATED 416 10^3/uL (150-450); RED BLOOD COUNT 3.27 10^6/uL (4.30-6.10); WHITE BLOOD COUNT 11.6 10^3/uL (4.0-10.0)
[2021-10-06 06:39] LABS: CALCIUM LEVEL 8.1 MG/DL (8.8-10.2); CREATININE FOR GFR 3.14 MG/DL (0.70-1.30); GLOMERULAR FILTRATION RATE 20.2 (>35); POTASSIUM SERUM 5.3 MEQ/L (3.5-5.1)
[2021-10-06 08:02] LABS: ALBUMIN 1.6 GM/DL (3.2-5.2); BILIRUBIN,DIRECT 0.2 MG/DL (0.0-0.2); BILIRUBIN,TOTAL 0.5 MG/DL (0.2-1.0); C REACTIVE PROTEIN QUANTITATIV 11.9 MG/DL (0.00-0.30); TOTAL PROTEIN 5.2 GM/DL (6.4-8.2)
[2021-10-06] MEDS: ASPIRIN 81MG ENTERIC TABLET PO SCH (09:41)
[2021-10-06] MEDS: LINEZOLID 600MG TABLET (ZYVOX) PO SCH ×2 (09:42→21:12)
[2021-10-06] MEDS: HEPARIN SOD (PORCINE) 5000UNITS/ML 1ML VIAL/SYRINGE SC SCH ×2 (09:42→21:10)
[2021-10-06] MEDS: LEVEMIR (INSULIN DETEMIR) 1 UNITS/0.01ML SC SCH (09:43)
[2021-10-06] MEDS: INSULIN LISPRO (NovoLOG) PER UNIT SC SCH ×4 (09:43→21:00)
[2021-10-06] MEDS: MIRALAX *UNIT DOSE* 17GM PACKET PO PRN (09:51)
[2021-10-06] MEDS ORDERED: PATIROMER SORBITEX CALCIUM 8.4 GM POWDER PACKET (VELTASSA) PO ONE (13:00)
[2021-10-06 15:00] VITALS: BP 138/71
[2021-10-06] MEDS: bisoproloL fumarate 5 MG TAB PO SCH (21:11)
[2021-10-06] MEDS: PRAVASTATIN 20 MG TAB PO SCH (21:12)
[2021-10-06 22:00] VITALS: BP 148/76
[2021-10-07 04:50] VITALS: BP 156/88
[2021-10-07 06:06] LABS: BASO # 0.1 10^3/uL (0.0-0.2); BASO % 0.5 % (0.0-1.0); EOS # 0.4 10^3/uL (0.0-0.5); HEMATOCRIT 27.2 % (42.0-52.0); HEMOGLOBIN 8.7 g/dl (13.5-17.5); LYMPH # 0.7 10^3/uL (1.5-5.0); LYMPH % 5.8 % (24.0-44.0); MEAN CORPUSCULAR HEMOGLOBIN 27.3 pg (27.0-33.0); MEAN CORPUSCULAR VOLUME 85.3 fl (80.0-96.0); MONO # 0.7 10^3/uL (0.0-0.8); MONO % 5.9 % (2.0-8.0); NEUTROPHILS # 10.2 10^3/uL (1.5-8.5); NEUTROPHILS % 83.7 % (36.0-66.0); PLATELET COUNT, AUTOMATED 427 10^3/uL (150-450); RED BLOOD COUNT 3.19 10^6/uL (4.30-6.10); WHITE BLOOD COUNT 12.2 10^3/uL (4.0-10.0)
[2021-10-07 06:44] LABS: ALBUMIN 1.6 GM/DL (3.2-5.2); BILIRUBIN,DIRECT 0.1 MG/DL (0.0-0.2); BILIRUBIN,TOTAL 0.2 MG/DL (0.2-1.0); CALCIUM LEVEL 8.3 MG/DL (8.8-10.2); CREATININE FOR GFR 3.29 MG/DL (0.70-1.30); GLOMERULAR FILTRATION RATE 19.2 (>35); POTASSIUM SERUM 5.4 MEQ/L (3.5-5.1); TOTAL PROTEIN 5.4 GM/DL (6.4-8.2)
[2021-10-07] MEDS: HEPARIN SOD (PORCINE) 5000UNITS/ML 1ML VIAL/SYRINGE SC SCH ×2 (08:31→22:08)
[2021-10-07] MEDS: ASPIRIN 81MG ENTERIC TABLET PO SCH (08:31)
[2021-10-07] MEDS: LEVEMIR (INSULIN DETEMIR) 1 UNITS/0.01ML SC SCH ×2 (08:31→22:08)
[2021-10-07] MEDS: INSULIN LISPRO (NovoLOG) PER UNIT SC SCH ×4 (08:31→21:00)
[2021-10-07] MEDS: LINEZOLID 600MG TABLET (ZYVOX) PO SCH ×2 (08:56→22:09)
[2021-10-07] MEDS ORDERED: PATIROMER SORBITEX CALCIUM 8.4 GM POWDER PACKET (VELTASSA) PO ONE (12:00)
[2021-10-07] MEDS: ONDANSETRON 4MG 2ML VIAL IV PRN (12:57)
[2021-10-07 13:26] LABS: C REACTIVE PROTEIN QUANTITATIV 9.91 MG/DL (0.00-0.30)
[2021-10-07 13:50] LABS: ERYTHROCYTE SEDIMENTATION RATE 128 mm/hr (0-20)
[2021-10-07 14:00] VITALS: BP 147/77
[2021-10-07 15:25] LABS: ABG BASE EXCESS -3.3 (-2.0-2.0); ABG HCO3 21.6 MEQ/L (22.0-26.0); ABG O2 SATURATION 98.9 % (95.0-99.0); ABG STANDARD HCO3 21.8 MEQ/L (22.0-26.0); ABG TOTAL CO2 22.8 MEQ/L (23.0-31.0); ABG pH (ARTERIAL) 7.373 UNITS (7.350-7.450)
[2021-10-07 15:28] LABS: BASO # 0.1 10^3/uL (0.0-0.2); BASO % 0.4 % (0.0-1.0); EOS # 0.2 10^3/uL (0.0-0.5); EOS % 1.8 % (0.0-3.0); HEMATOCRIT 28.8 % (42.0-52.0); HEMOGLOBIN 9.2 g/dl (13.5-17.5); LYMPH # 0.6 10^3/uL (1.5-5.0); LYMPH % 5.5 % (24.0-44.0); MEAN CORPUSCULAR HGB CONC 31.9 g/dl (32.0-36.5); MEAN CORPUSCULAR VOLUME 84.5 fl (80.0-96.0); MONO # 0.6 10^3/uL (0.0-0.8); MONO % 5.3 % (2.0-8.0); NEUTROPHILS # 9.9 10^3/uL (1.5-8.5); PLATELET COUNT, AUTOMATED 494 10^3/uL (150-450); RED BLOOD COUNT 3.41 10^6/uL (4.30-6.10); WHITE BLOOD COUNT 11.6 10^3/uL (4.0-10.0)
[2021-10-07 16:01] LABS: ALBUMIN 1.8 GM/DL (3.2-5.2); BILIRUBIN,TOTAL 0.2 MG/DL (0.2-1.0); CALCIUM LEVEL 8.7 MG/DL (8.8-10.2); CREATININE FOR GFR 3.29 MG/DL (0.70-1.30); GLOMERULAR FILTRATION RATE 19.2 (>35)
[2021-10-07 16:21] LABS: CK-MB VALUE MASS 4.1 NG/ML (<3.6); MB/CK RELATIVE INDEX 12.42 (< OR =4)
[2021-10-07] MEDS: CLOPIDOGREL 75 MG TAB PO SCH (17:49)
[2021-10-07 18:28] VITALS: BP 160/85
[2021-10-07 21:52] LABS: CK-MB VALUE MASS 5.1 NG/ML (<3.6)
[2021-10-07 22:00] VITALS: BP 146/71
[2021-10-07] MEDS: PRAVASTATIN 20 MG TAB PO SCH (22:08)
[2021-10-07] MEDS: bisoproloL fumarate 5 MG TAB PO SCH (22:09)
[2021-10-08 02:59] LABS: BASO # 0.1 10^3/uL (0.0-0.2); BASO % 0.5 % (0.0-1.0); EOS # 0.3 10^3/uL (0.0-0.5); EOS % 3.2 % (0.0-3.0); HEMATOCRIT 25.8 % (42.0-52.0); HEMOGLOBIN 8.2 g/dl (13.5-17.5); LYMPH # 0.7 10^3/uL (1.5-5.0); LYMPH % 7.6 % (24.0-44.0); MEAN CORPUSCULAR HEMOGLOBIN 26.9 pg (27.0-33.0); MEAN CORPUSCULAR HGB CONC 31.8 g/dl (32.0-36.5); MEAN CORPUSCULAR VOLUME 84.6 fl (80.0-96.0); MONO # 0.6 10^3/uL (0.0-0.8); MONO % 6.2 % (2.0-8.0); NEUTROPHILS % 81.6 % (36.0-66.0); PLATELET COUNT, AUTOMATED 423 10^3/uL (150-450); RED BLOOD COUNT 3.05 10^6/uL (4.30-6.10); WHITE BLOOD COUNT 9.8 10^3/uL (4.0-10.0)
[2021-10-08 03:35] LABS: CALCIUM LEVEL 8.3 MG/DL (8.8-10.2); CREATININE FOR GFR 3.16 MG/DL (0.70-1.30); GLOMERULAR FILTRATION RATE 20.1 (>35); POTASSIUM SERUM 4.8 MEQ/L (3.5-5.1)
[2021-10-08 03:47] LABS: CK-MB VALUE MASS 4.8 NG/ML (<3.6)
[2021-10-08] MEDS ORDERED: HEPARIN SOD (PORCINE) 5000UNITS/ML 1ML VIAL/SYRINGE IV PRN (04:05)
[2021-10-08] MEDS ORDERED: HEPARIN SOD (PORCINE) 5000UNITS/ML 1ML VIAL/SYRINGE IV ONE (05:30)
[2021-10-08] MEDS: HEPARIN DRIP 25,000 UNITS in IV 1 EA IV SCH (05:46)
[2021-10-08 06:00] VITALS: BP 144/74
[2021-10-08] MEDS: INSULIN LISPRO (NovoLOG) PER UNIT SC SCH ×4 (07:30→20:50)
[2021-10-08 08:00] VITALS: BP 144/77
[2021-10-08] MEDS: CLOPIDOGREL 75 MG TAB PO SCH (08:51)
[2021-10-08] MEDS: LEVEMIR (INSULIN DETEMIR) 1 UNITS/0.01ML SC SCH ×2 (08:51→20:47)
[2021-10-08] MEDS: LINEZOLID 600MG TABLET (ZYVOX) PO SCH ×2 (08:51→20:47)
[2021-10-08] MEDS: ASPIRIN 81MG ENTERIC TABLET PO SCH (08:51)
[2021-10-08] MEDS: NS 1,000 ML IV SCH ×2 (10:09→20:52)
[2021-10-08] MEDS: **hydrALAZINE** 10 MG TAB PO SCH ×3 (10:09→20:48)
[2021-10-08 11:38] LABS: BASO % 0.3 % (0.0-1.0); EOS # 0.2 10^3/uL (0.0-0.5); EOS % 1.7 % (0.0-3.0); HEMATOCRIT 27.2 % (42.0-52.0); HEMOGLOBIN 8.6 g/dl (13.5-17.5); LYMPH # 0.6 10^3/uL (1.5-5.0); LYMPH % 5.5 % (24.0-44.0); MEAN CORPUSCULAR HEMOGLOBIN 26.9 pg (27.0-33.0); MEAN CORPUSCULAR HGB CONC 31.6 g/dl (32.0-36.5); MONO # 0.7 10^3/uL (0.0-0.8); MONO % 5.8 % (2.0-8.0); NEUTROPHILS # 9.9 10^3/uL (1.5-8.5); NEUTROPHILS % 85.2 % (36.0-66.0); PLATELET COUNT, AUTOMATED 463 10^3/uL (150-450); WHITE BLOOD COUNT 11.6 10^3/uL (4.0-10.0)
[2021-10-08 12:00] VITALS: BP 149/72
[2021-10-08 12:48] LABS: CALCIUM LEVEL 8.3 MG/DL (8.8-10.2); CREATININE FOR GFR 3.22 MG/DL (0.70-1.30); GLOMERULAR FILTRATION RATE 19.7 (>35); POTASSIUM SERUM 5.4 MEQ/L (3.5-5.1)
[2021-10-08 14:00] VITALS: BP 142/69
[2021-10-08 16:00] VITALS: BP 142/69
[2021-10-08] MEDS ORDERED: PATIROMER SORBITEX CALCIUM 8.4 GM POWDER PACKET (VELTASSA) PO ONE (16:00)
[2021-10-08 20:00] VITALS: BP 135/73
[2021-10-08] MEDS: PRAVASTATIN 20 MG TAB PO SCH (20:48)
[2021-10-08] MEDS: bisoproloL fumarate 5 MG TAB PO SCH (20:49)
[2021-10-09] VITALS (7 sets, daily range): BP systolic 126–162; BP diastolic 69–90
[2021-10-09 05:26] LABS: BASO # 0.1 10^3/uL (0.0-0.2); BASO % 0.9 % (0.0-1.0); EOS # 0.2 10^3/uL (0.0-0.5); EOS % 2.4 % (0.0-3.0); HEMATOCRIT 26.3 % (42.0-52.0); HEMOGLOBIN 8.4 g/dl (13.5-17.5); LYMPH # 0.7 10^3/uL (1.5-5.0); LYMPH % 7.5 % (24.0-44.0); MEAN CORPUSCULAR HEMOGLOBIN 27.3 pg (27.0-33.0); MEAN CORPUSCULAR HGB CONC 31.9 g/dl (32.0-36.5); MEAN CORPUSCULAR VOLUME 85.4 fl (80.0-96.0); MONO # 0.6 10^3/uL (0.0-0.8); MONO % 6.2 % (2.0-8.0); NEUTROPHILS # 7.3 10^3/uL (1.5-8.5); PLATELET COUNT, AUTOMATED 401 10^3/uL (150-450); RED BLOOD COUNT 3.08 10^6/uL (4.30-6.10); WHITE BLOOD COUNT 8.9 10^3/uL (4.0-10.0)
[2021-10-09] MEDS: ONDANSETRON 4MG 2ML VIAL IV PRN (06:18)
[2021-10-09 06:29] LABS: CALCIUM LEVEL 7.8 MG/DL (8.8-10.2); CREATININE FOR GFR 3.02 MG/DL (0.70-1.30); GLOMERULAR FILTRATION RATE 21.2 (>35); POTASSIUM SERUM 5.6 MEQ/L (3.5-5.1)
[2021-10-09] MEDS: INSULIN LISPRO (NovoLOG) PER UNIT SC SCH ×4 (07:30→20:30)
[2021-10-09] MEDS ORDERED: SOD POLYSTYRENE SULFONATE SUSP 15GM 60ML UD PO ONE (08:00)
[2021-10-09] MEDS: LINEZOLID 600MG TABLET (ZYVOX) PO SCH ×2 (08:58→20:30)
[2021-10-09] MEDS: ASPIRIN 81MG ENTERIC TABLET PO SCH (08:58)
[2021-10-09] MEDS: **hydrALAZINE** 10 MG TAB PO SCH ×3 (08:59→20:30)
[2021-10-09] MEDS: CLOPIDOGREL 75 MG TAB PO SCH (08:59)
[2021-10-09] MEDS: LEVEMIR (INSULIN DETEMIR) 1 UNITS/0.01ML SC SCH ×2 (09:00→20:30)
[2021-10-09] MEDS: NS 1,000 ML IV SCH ×2 (09:00→20:33)
[2021-10-09] MEDS: HEPARIN DRIP 25,000 UNITS in IV 1 EA IV SCH (11:29)
[2021-10-09] MEDS ORDERED: PATIROMER SORBITEX CALCIUM 8.4 GM POWDER PACKET (VELTASSA) PO ONE (12:00)
[2021-10-09] MEDS: bisoproloL fumarate 5 MG TAB PO SCH (20:30)
[2021-10-09] MEDS: PRAVASTATIN 20 MG TAB PO SCH (20:30)
[2021-10-10] VITALS (7 sets, daily range): BP systolic 125–165; BP diastolic 70–86
[2021-10-10 06:19] LABS: BASO # 0.1 10^3/uL (0.0-0.2); BASO % 0.6 % (0.0-1.0); EOS # 0.3 10^3/uL (0.0-0.5); HEMATOCRIT 25.8 % (42.0-52.0); HEMOGLOBIN 8.2 g/dl (13.5-17.5); LYMPH # 0.7 10^3/uL (1.5-5.0); MEAN CORPUSCULAR HEMOGLOBIN 27.2 pg (27.0-33.0); MEAN CORPUSCULAR HGB CONC 31.8 g/dl (32.0-36.5); MEAN CORPUSCULAR VOLUME 85.7 fl (80.0-96.0); MONO # 0.6 10^3/uL (0.0-0.8); MONO % 6.4 % (2.0-8.0); NEUTROPHILS # 7.2 10^3/uL (1.5-8.5); NEUTROPHILS % 81.7 % (36.0-66.0); PLATELET COUNT, AUTOMATED 404 10^3/uL (150-450); RED BLOOD COUNT 3.01 10^6/uL (4.30-6.10); WHITE BLOOD COUNT 8.8 10^3/uL (4.0-10.0)
[2021-10-10 06:54] LABS: CREATININE FOR GFR 2.97 MG/DL (0.70-1.30); GLOMERULAR FILTRATION RATE 21.6 (>35); POTASSIUM SERUM 4.1 MEQ/L (3.5-5.1)
[2021-10-10] MEDS: INSULIN LISPRO (NovoLOG) PER UNIT SC SCH ×3 (07:30→17:11)
[2021-10-10] MEDS: ASPIRIN 81MG ENTERIC TABLET PO SCH (08:11)
[2021-10-10] MEDS: **hydrALAZINE** 10 MG TAB PO SCH ×2 (08:11→16:17)
[2021-10-10] MEDS: LEVEMIR (INSULIN DETEMIR) 1 UNITS/0.01ML SC SCH (08:11)
[2021-10-10] MEDS: CLOPIDOGREL 75 MG TAB PO SCH (08:11)
[2021-10-10] MEDS: NS 1,000 ML IV SCH (08:57)
[2021-10-10] MEDS: HEPARIN DRIP 25,000 UNITS in IV 1 EA IV SCH (11:44)
[2021-10-10] MEDS ORDERED: HEPARIN XX (18:35)
[2021-10-10] MEDS ORDERED: MOM30SS2 PO (18:35)
[2021-10-10] MEDS ORDERED: HEPA1INJ81 IV (18:35)
[2021-10-10] MEDS ORDERED: INSUDET SC ×2 (18:35)
[2021-10-10] MEDS ORDERED: MIRA1POW3 PO (18:35)
[2021-10-10] MEDS ORDERED: [UNRECOGNIZED DRUG - OTHER] XX (18:35)
[2021-10-10] MEDS ORDERED: ACET1TAB55 PO (18:35)
[2021-10-10] MEDS ORDERED: HYDR10TAB PO (18:35)
[2021-10-10] MEDS ORDERED: ONDA4INJ4 IV (18:35)
[2021-10-10] MEDS ORDERED: SIME80TA16 PO (18:35)
[2021-10-10] MEDS ORDERED: CLOP75TA2 PO (18:35)
[2021-10-10] MEDS ORDERED: INSUHUMDS SC ×2 (18:35)
== END 2021-10-10 19:15 | disposition short-term general hospital (02) | DRG 616 ==
LOC: M ED 17:29 → EEVIPCON 23:13 → M MSPAV 23:13 → ENRESERV 10-02 00:12 → EDBEDREQSVC 10-02 00:23 → M PCU 10-07 18:23
PROVIDERS: ADMIT Internal Medicine; ATTEND Internal Medicine
PROC: 0Y6M0Z4 Detachment at Right Foot, Complete 1st Ray, Open Approach (ICD-10-PCS; principal; 2021-10-03 13:15)
DX: E11.69 Type 2 diabetes mellitus with other specified complication (principal); I21.4 Non-ST elevation (NSTEMI) myocardial infarction; R78.81 Bacteremia; L03.115 Cellulitis of right lower limb; E87.2 Acidosis; N17.9 Acute kidney failure, unspecified; F32.A Depression, unspecified; E78.00 Pure hypercholesterolemia, unspecified; I27.81 Cor pulmonale (chronic); K21.9 Gastro-esophageal reflux disease without esophagitis; R74.01 Elevation of levels of liver transaminase levels; Z95.1 Presence of aortocoronary bypass graft; I27.20 Pulmonary hypertension, unspecified; E11.621 Type 2 diabetes mellitus with foot ulcer; D63.1 Anemia in chronic kidney disease; N18.30 Chronic kidney disease, stage 3 unspecified; E11.22 Type 2 diabetes mellitus with diabetic chronic kidney disease; R63.4 Abnormal weight loss; E78.5 Hyperlipidemia, unspecified; E87.5 Hyperkalemia; I25.10 Atherosclerotic heart disease of native coronary artery without angina pectoris; Z88.2 Allergy status to sulfonamides; Z88.5 Allergy status to narcotic agent; Z88.8 Allergy status to other drugs, medicaments and biological substances; Z79.899 Other long term (current) drug therapy; Z79.82 Long term (current) use of aspirin; Z66 Do not resuscitate

== ENCOUNTER 2021-10-19 10:51 | Inpatient (IN) | payer MEDICARE ==
[~2021-10-19] VITALS: Ht 177.8 cm; Wt 79.5 kg
[~2021-10-19 10:51] MED LIST changes: +CLOP75TA2 PO; +HEPA1INJ81 IV; +HEPARIN XX; +HYDR10TAB PO; +INSUDET SC; +INSUHUMDS SC; +MIRA1POW3 PO; +MOM30SS2 PO; +MULT-40 PO; +ONDA4INJ4 IV; +SIME80TA16 PO; +[UNRECOGNIZED DRUG - OTHER] XX
[2021-10-19 11:45] LABS: VENOUS BASE EXCESS 3.2 (-2.0-2.0); VENOUS O2 SATURATION 89.5 % (60.0-80.0); VENOUS PARTIAL PRESSURE CO2 43.7 mmHg (38.0-50.0); VENOUS PARTIAL PRESSURE O2 59.2 mmHg (30.0-50.0); VENOUS PH 7.425 UNITS (7.330-7.430); VENOUS STANDARD HCO3 27.2 MEQ/L; VENOUS TOTAL CO2 29.4 MEQ/L (24.0-28.0)
[2021-10-19 12:12] LABS: INR 1.17; PARTIAL THROMBOPLASTIN TIME 38.2 SECONDS (25.9-37.0); PROTHROMBIN TIME 15.3 SECONDS (12.7-14.5)
[2021-10-19 12:18] LABS: BASO % 0.2 % (0.0-1.0); EOS % 0.1 % (0.0-3.0); HEMATOCRIT 28.8 % (42.0-52.0); HEMOGLOBIN 9.3 g/dl (13.5-17.5); LYMPH # 0.4 10^3/uL (1.5-5.0); LYMPH % 4.5 % (24.0-44.0); MEAN CORPUSCULAR HEMOGLOBIN 28.4 pg (27.0-33.0); MEAN CORPUSCULAR HGB CONC 32.3 g/dl (32.0-36.5); MEAN CORPUSCULAR VOLUME 87.8 fl (80.0-96.0); MONO # 0.7 10^3/uL (0.0-0.8); MONO % 8.7 % (2.0-8.0); NEUTROPHILS # 7.1 10^3/uL (1.5-8.5); NEUTROPHILS % 86.1 % (36.0-66.0); PLATELET COUNT, AUTOMATED 297 10^3/uL (150-450); RED BLOOD COUNT 3.28 10^6/uL (4.30-6.10); WHITE BLOOD COUNT 8.2 10^3/uL (4.0-10.0)
[2021-10-19] MEDS ORDERED: BOOSTRIX/ADACEL VACCINE (DIPHTH/PERTUSS/ACELL/TETANUS) 0.5ML SYR IM.IMMUN ONE (12:45)
[2021-10-19 12:49] LABS: CK-MB VALUE MASS 3.6 NG/ML (<3.6)
[2021-10-19 12:50] LABS: ERYTHROCYTE SEDIMENTATION RATE 127 mm/hr (0-20)
[2021-10-19 12:58] LABS: ALBUMIN 2.3 GM/DL (3.2-5.2); BILIRUBIN,DIRECT 0.2 MG/DL (0.0-0.2); BILIRUBIN,TOTAL 0.5 MG/DL (0.2-1.0); CALCIUM LEVEL 7.6 MG/DL (8.8-10.2); CREATININE FOR GFR 3.93 MG/DL (0.70-1.30); FREE T4 1.36 NG/DL (0.76-1.46); GLOMERULAR FILTRATION RATE 15.6 (>35); MAGNESIUM LEVEL 1.5 MG/DL (1.8-2.4); POTASSIUM SERUM 3.8 MEQ/L (3.5-5.1); THYROID STIMULATING HORMONE 0.872 uIU/ML (0.358-3.740); TOTAL PROTEIN 6.4 GM/DL (6.4-8.2)
[2021-10-19] MEDS ORDERED: GLUCOSE 4GM CHEW TABLET PO PRN (13:15)
[2021-10-19] MEDS ORDERED: DEXTROSE 50% 50 ML SYRINGE IV PRN (13:15)
[2021-10-19] MEDS ORDERED: GLUCAGON INJ 1MG VIAL SC PRN (13:15)
[2021-10-19] MEDS ORDERED: GLIM2TAB4 PO (13:23)
[2021-10-19] MEDS ORDERED: CALC200T15 PO (13:23)
[2021-10-19] MEDS ORDERED: PLAV1TAB2 PO (13:23)
[2021-10-19] MEDS ORDERED: TORS20TA2 PO (13:23)
[2021-10-19] MEDS ORDERED: HYDR10TAB PO (13:23)
[2021-10-19] MEDS ORDERED: LANTINJ4 SC (13:23)
[2021-10-19] MEDS ORDERED: MIRA3350 PO (13:23)
[2021-10-19] MEDS ORDERED: MAGN64TASA PO (13:23)
[2021-10-19] MEDS ORDERED: ISOS20TA4 PO (13:23)
[2021-10-19] MEDS ORDERED: HOME MED LIST COMPLETE! XX SCH (13:25)
[2021-10-19 14:41] LABS: RSV AMPLIFICATION NEGATIVE (NEGATIVE)
[2021-10-19] MEDS: INSULIN LISPRO (NovoLOG) PER UNIT SC SCH ×3 (15:47→20:52)
[2021-10-19 17:10] LABS: BACTERIA, URINE SMALL AMOUNT; HYALINE CAST, URINE 0-1 /lpf (0-1); SQUAMOUS EPITHELIAL CELL URINE SMALL AMOUNT /hpf (SMALL AMT)
[2021-10-19 17:11] LABS: AMORPHOUS SEDIMENT, URINE SMALL AMOUNT (NEGATIVE)
[2021-10-19 18:00] VITALS: BP 133/76
[2021-10-19] MEDS: ACETAMINOPHEN 500 MG TAB PO PRN (18:09)
[2021-10-19] MEDS: ISOSORBIDE DIN. (ISORDIL) 20 MG TAB PO SCH (18:10)
[2021-10-19 20:32] VITALS: BP 100/54
[2021-10-19] MEDS: **hydrALAZINE** 10 MG TAB PO SCH (21:00)
[2021-10-19] MEDS: PRAVASTATIN 20 MG TAB PO SCH (21:36)
[2021-10-20 05:37] VITALS: BP 135/71
[2021-10-20] MEDS: ACETAMINOPHEN 500 MG TAB PO PRN (06:04)
[2021-10-20] MEDS: ISOSORBIDE DIN. (ISORDIL) 20 MG TAB PO SCH ×3 (06:04→17:46)
[2021-10-20 06:46] LABS: HEMATOCRIT 31.6 % (42.0-52.0); HEMOGLOBIN 9.9 g/dl (13.5-17.5); MEAN CORPUSCULAR HGB CONC 31.3 g/dl (32.0-36.5); MEAN CORPUSCULAR VOLUME 89.3 fl (80.0-96.0); PLATELET COUNT, AUTOMATED 262 10^3/uL (150-450); RED BLOOD COUNT 3.54 10^6/uL (4.30-6.10); WHITE BLOOD COUNT 8.4 10^3/uL (4.0-10.0)
[2021-10-20 07:14] LABS: ALBUMIN 2.4 GM/DL (3.2-5.2); C REACTIVE PROTEIN QUANTITATIV 13.6 MG/DL (0.00-0.30); CALCIUM LEVEL 7.9 MG/DL (8.8-10.2); CREATININE FOR GFR 3.96 MG/DL (0.70-1.30); GLOMERULAR FILTRATION RATE 15.5 (>35); PHOSPHORUS LEVEL 5.3 MG/DL (2.5-4.9); POTASSIUM SERUM 3.7 MEQ/L (3.5-5.1)
[2021-10-20] MEDS: INSULIN LISPRO (NovoLOG) PER UNIT SC SCH ×4 (07:30→19:57)
[2021-10-20] MEDS: CLOPIDOGREL 75 MG TAB PO SCH (09:39)
[2021-10-20] MEDS: OMEPRAZOLE 20MG CAP PO SCH (09:39)
[2021-10-20] MEDS: **hydrALAZINE** 10 MG TAB PO SCH ×3 (09:40→20:03)
[2021-10-20] MEDS: ASPIRIN 81MG ENTERIC TABLET PO SCH (09:40)
[2021-10-20] MEDS: bisoproloL fumarate 5 MG TAB PO SCH (09:40)
[2021-10-20 12:13] LABS: COMPLEMENT C3 105 MG/DL (90-180); COMPLEMENT C4 32 MG/DL (10-40)
[2021-10-20 14:00] VITALS: BP 119/61
[2021-10-20 19:57] VITALS: BP 132/63
[2021-10-20] MEDS: PRAVASTATIN 20 MG TAB PO SCH (20:02)
[2021-10-21 06:02] VITALS: BP 134/64
[2021-10-21] MEDS: ISOSORBIDE DIN. (ISORDIL) 20 MG TAB PO SCH (06:03)
[2021-10-21 06:44] LABS: HEMATOCRIT 26.1 % (42.0-52.0); HEMOGLOBIN 8.4 g/dl (13.5-17.5); MEAN CORPUSCULAR HEMOGLOBIN 28.6 pg (27.0-33.0); MEAN CORPUSCULAR HGB CONC 32.2 g/dl (32.0-36.5); MEAN CORPUSCULAR VOLUME 88.8 fl (80.0-96.0); PLATELET COUNT, AUTOMATED 238 10^3/uL (150-450); RED BLOOD COUNT 2.94 10^6/uL (4.30-6.10); WHITE BLOOD COUNT 7.3 10^3/uL (4.0-10.0)
[2021-10-21 07:30] LABS: CALCIUM LEVEL 7.1 MG/DL (8.8-10.2); CREATININE FOR GFR 3.87 MG/DL (0.70-1.30); GLOMERULAR FILTRATION RATE 15.9 (>35); POTASSIUM SERUM 3.6 MEQ/L (3.5-5.1)
[2021-10-21] MEDS: INSULIN LISPRO (NovoLOG) PER UNIT SC SCH ×4 (07:30→20:40)
[2021-10-21] MEDS: OMEPRAZOLE 20MG CAP PO SCH (09:19)
[2021-10-21] MEDS: CLOPIDOGREL 75 MG TAB PO SCH (09:20)
[2021-10-21] MEDS: bisoproloL fumarate 5 MG TAB PO SCH (09:20)
[2021-10-21] MEDS: **hydrALAZINE** 10 MG TAB PO SCH ×3 (09:20→20:47)
[2021-10-21] MEDS: ASPIRIN 81MG ENTERIC TABLET PO SCH (09:20)
[2021-10-21] MEDS ORDERED: POTASSIUM CHLORIDE 10MEQ SR TABLET PO ONE (11:00)
[2021-10-21] MEDS: ISOSORBIDE DIN (ISORDIL) 10MG TAB PO SCH ×2 (12:24→17:43)
[2021-10-21 14:00] VITALS: BP 115/61
[2021-10-21 20:12] VITALS: BP 122/69
[2021-10-21] MEDS: PRAVASTATIN 20 MG TAB PO SCH (20:46)
[2021-10-22 06:03] VITALS: BP 160/83
[2021-10-22] MEDS: ISOSORBIDE DIN (ISORDIL) 10MG TAB PO SCH ×3 (06:05→18:15)
[2021-10-22 06:16] LABS: HEMATOCRIT 27.4 % (42.0-52.0); HEMOGLOBIN 8.6 g/dl (13.5-17.5); MEAN CORPUSCULAR HEMOGLOBIN 28.3 pg (27.0-33.0); MEAN CORPUSCULAR HGB CONC 31.4 g/dl (32.0-36.5); MEAN CORPUSCULAR VOLUME 90.1 fl (80.0-96.0); PLATELET COUNT, AUTOMATED 220 10^3/uL (150-450); RED BLOOD COUNT 3.04 10^6/uL (4.30-6.10); WHITE BLOOD COUNT 6.8 10^3/uL (4.0-10.0)
[2021-10-22 07:03] LABS: ALBUMIN 2.1 GM/DL (3.2-5.2); CALCIUM LEVEL 7.1 MG/DL (8.8-10.2); CREATININE FOR GFR 3.77 MG/DL (0.70-1.30); GLOMERULAR FILTRATION RATE 16.4 (>35); PHOSPHORUS LEVEL 3.7 MG/DL (2.5-4.9); POTASSIUM SERUM 3.5 MEQ/L (3.5-5.1)
[2021-10-22] MEDS: INSULIN LISPRO (NovoLOG) PER UNIT SC SCH ×4 (08:29→21:00)
[2021-10-22] MEDS: ASPIRIN 81MG ENTERIC TABLET PO SCH (08:30)
[2021-10-22] MEDS: bisoproloL fumarate 5 MG TAB PO SCH (08:30)
[2021-10-22] MEDS: **hydrALAZINE** 10 MG TAB PO SCH ×3 (08:31→21:03)
[2021-10-22] MEDS: CLOPIDOGREL 75 MG TAB PO SCH (08:31)
[2021-10-22] MEDS: OMEPRAZOLE 20MG CAP PO SCH (08:31)
[2021-10-22] MEDS ORDERED: POTASSIUM CHLORIDE 10MEQ SR TABLET PO ONE (11:05)
[2021-10-22 14:00] VITALS: BP 137/69
[2021-10-22] MEDS: PRAVASTATIN 20 MG TAB PO SCH (21:02)
[2021-10-22 22:00] VITALS: BP 131/68
[2021-10-23 05:24] VITALS: BP 129/65
[2021-10-23] MEDS: ISOSORBIDE DIN (ISORDIL) 10MG TAB PO SCH ×3 (06:25→16:34)
[2021-10-23 07:11] LABS: HEMATOCRIT 31.7 % (42.0-52.0); HEMOGLOBIN 9.8 g/dl (13.5-17.5); MEAN CORPUSCULAR HEMOGLOBIN 27.8 pg (27.0-33.0); MEAN CORPUSCULAR HGB CONC 30.9 g/dl (32.0-36.5); MEAN CORPUSCULAR VOLUME 90.1 fl (80.0-96.0); PLATELET COUNT, AUTOMATED 283 10^3/uL (150-450); RED BLOOD COUNT 3.52 10^6/uL (4.30-6.10); WHITE BLOOD COUNT 8.2 10^3/uL (4.0-10.0)
[2021-10-23 07:33] LABS: ALBUMIN 2.3 GM/DL (3.2-5.2); CALCIUM LEVEL 7.3 MG/DL (8.8-10.2); CREATININE FOR GFR 3.5 MG/DL (0.70-1.30); GLOMERULAR FILTRATION RATE 17.9 (>35); PHOSPHORUS LEVEL 3.1 MG/DL (2.5-4.9); POTASSIUM SERUM 3.8 MEQ/L (3.5-5.1)
[2021-10-23] MEDS: ASPIRIN 81MG ENTERIC TABLET PO SCH (08:05)
[2021-10-23] MEDS: INSULIN LISPRO (NovoLOG) PER UNIT SC SCH ×4 (08:05→19:56)
[2021-10-23] MEDS: **hydrALAZINE** 10 MG TAB PO SCH ×3 (08:05→21:44)
[2021-10-23] MEDS: CLOPIDOGREL 75 MG TAB PO SCH (08:05)
[2021-10-23] MEDS: bisoproloL fumarate 5 MG TAB PO SCH (08:05)
[2021-10-23] MEDS: OMEPRAZOLE 20MG CAP PO SCH (08:06)
[2021-10-23] MEDS ORDERED: POTASSIUM CHLORIDE 10MEQ SR TABLET PO ONE (11:40)
[2021-10-23 14:00] VITALS: BP 142/70
[2021-10-23] MEDS: HEPARIN SOD (PORCINE) 5000UNITS/ML 1ML VIAL/SYRINGE SQ SCH (21:44)
[2021-10-23] MEDS: PRAVASTATIN 20 MG TAB PO SCH (21:44)
[2021-10-24 06:14] VITALS: BP 139/69
[2021-10-24] MEDS: ISOSORBIDE DIN (ISORDIL) 10MG TAB PO SCH ×3 (06:16→16:54)
[2021-10-24] MEDS: HEPARIN SOD (PORCINE) 5000UNITS/ML 1ML VIAL/SYRINGE SQ SCH ×3 (06:19→20:48)
[2021-10-24 07:38] LABS: HEMATOCRIT 27.3 % (42.0-52.0); HEMOGLOBIN 8.4 g/dl (13.5-17.5); MEAN CORPUSCULAR HEMOGLOBIN 27.8 pg (27.0-33.0); MEAN CORPUSCULAR HGB CONC 30.8 g/dl (32.0-36.5); MEAN CORPUSCULAR VOLUME 90.4 fl (80.0-96.0); PLATELET COUNT, AUTOMATED 226 10^3/uL (150-450); RED BLOOD COUNT 3.02 10^6/uL (4.30-6.10); WHITE BLOOD COUNT 5.5 10^3/uL (4.0-10.0)
[2021-10-24 08:10] LABS: ALBUMIN 2.1 GM/DL (3.2-5.2); BILIRUBIN,TOTAL 0.4 MG/DL (0.2-1.0); CALCIUM LEVEL 7.3 MG/DL (8.8-10.2); CREATININE FOR GFR 3.13 MG/DL (0.70-1.30); GLOMERULAR FILTRATION RATE 20.3 (>35); POTASSIUM SERUM 3.9 MEQ/L (3.5-5.1); TOTAL PROTEIN 5.3 GM/DL (6.4-8.2)
[2021-10-24] MEDS: INSULIN LISPRO (NovoLOG) PER UNIT SC SCH ×4 (09:38→20:47)
[2021-10-24] MEDS: ASPIRIN 81MG ENTERIC TABLET PO SCH (09:38)
[2021-10-24] MEDS: CLOPIDOGREL 75 MG TAB PO SCH (09:39)
[2021-10-24] MEDS: bisoproloL fumarate 5 MG TAB PO SCH (09:39)
[2021-10-24] MEDS: **hydrALAZINE** 10 MG TAB PO SCH ×3 (09:40→20:48)
[2021-10-24] MEDS: OMEPRAZOLE 20MG CAP PO SCH (09:40)
[2021-10-24] MEDS: PRAVASTATIN 20 MG TAB PO SCH (20:48)
[2021-10-25 06:00] VITALS: BP 136/68
[2021-10-25] MEDS: HEPARIN SOD (PORCINE) 5000UNITS/ML 1ML VIAL/SYRINGE SQ SCH ×3 (06:07→21:42)
[2021-10-25] MEDS: ISOSORBIDE DIN (ISORDIL) 10MG TAB PO SCH ×3 (06:08→17:14)
[2021-10-25 06:37] LABS: HEMATOCRIT 28.4 % (42.0-52.0); HEMOGLOBIN 8.9 g/dl (13.5-17.5); MEAN CORPUSCULAR HEMOGLOBIN 27.8 pg (27.0-33.0); MEAN CORPUSCULAR HGB CONC 31.3 g/dl (32.0-36.5); MEAN CORPUSCULAR VOLUME 88.8 fl (80.0-96.0); PLATELET COUNT, AUTOMATED 233 10^3/uL (150-450); WHITE BLOOD COUNT 5.6 10^3/uL (4.0-10.0)
[2021-10-25 07:19] LABS: ALBUMIN 2.2 GM/DL (3.2-5.2); BILIRUBIN,TOTAL 0.3 MG/DL (0.2-1.0); CALCIUM LEVEL 7.4 MG/DL (8.8-10.2); CREATININE FOR GFR 2.94 MG/DL (0.70-1.30); GLOMERULAR FILTRATION RATE 21.8 (>35); POTASSIUM SERUM 3.8 MEQ/L (3.5-5.1); TOTAL PROTEIN 5.6 GM/DL (6.4-8.2)
[2021-10-25] MEDS: INSULIN LISPRO (NovoLOG) PER UNIT SC SCH ×4 (08:15→21:00)
[2021-10-25] MEDS: CLOPIDOGREL 75 MG TAB PO SCH (08:15)
[2021-10-25] MEDS: ASPIRIN 81MG ENTERIC TABLET PO SCH (08:15)
[2021-10-25] MEDS: OMEPRAZOLE 20MG CAP PO SCH (08:15)
[2021-10-25] MEDS: **hydrALAZINE** 10 MG TAB PO SCH ×3 (08:16→21:43)
[2021-10-25] MEDS: bisoproloL fumarate 5 MG TAB PO SCH (08:16)
[2021-10-25] MEDS ORDERED: DARBEPOETIN 40 MCG/0.4 ML *NON-DIALYSIS* SYRINGE (J0881) SQ SCH (09:00)
[2021-10-25] MEDS: PRAVASTATIN 20 MG TAB PO SCH (21:42)
[2021-10-26 05:35] VITALS: BP 153/76
[2021-10-26] MEDS: HEPARIN SOD (PORCINE) 5000UNITS/ML 1ML VIAL/SYRINGE SQ SCH ×3 (05:38→21:49)
[2021-10-26] MEDS: ISOSORBIDE DIN (ISORDIL) 10MG TAB PO SCH ×3 (05:38→17:16)
[2021-10-26 07:05] LABS: HEMATOCRIT 27.1 % (42.0-52.0); HEMOGLOBIN 8.5 g/dl (13.5-17.5); MEAN CORPUSCULAR HEMOGLOBIN 28.1 pg (27.0-33.0); MEAN CORPUSCULAR HGB CONC 31.4 g/dl (32.0-36.5); MEAN CORPUSCULAR VOLUME 89.7 fl (80.0-96.0); PLATELET COUNT, AUTOMATED 233 10^3/uL (150-450); RED BLOOD COUNT 3.02 10^6/uL (4.30-6.10); WHITE BLOOD COUNT 5.7 10^3/uL (4.0-10.0)
[2021-10-26 07:39] LABS: ALBUMIN 2.1 GM/DL (3.2-5.2); BILIRUBIN,TOTAL 0.3 MG/DL (0.2-1.0); CALCIUM LEVEL 7.5 MG/DL (8.8-10.2); CREATININE FOR GFR 2.77 MG/DL (0.70-1.30); GLOMERULAR FILTRATION RATE 23.4 (>35); POTASSIUM SERUM 3.9 MEQ/L (3.5-5.1); TOTAL PROTEIN 5.4 GM/DL (6.4-8.2)
[2021-10-26] MEDS: CLOPIDOGREL 75 MG TAB PO SCH (09:36)
[2021-10-26] MEDS: OMEPRAZOLE 20MG CAP PO SCH (09:36)
[2021-10-26] MEDS: ASPIRIN 81MG ENTERIC TABLET PO SCH (09:36)
[2021-10-26] MEDS: LEVEMIR (INSULIN DETEMIR) 1 UNITS/0.01ML SC SCH (09:37)
[2021-10-26] MEDS: INSULIN LISPRO (NovoLOG) PER UNIT SC SCH ×4 (09:38→20:32)
[2021-10-26] MEDS: **hydrALAZINE** 10 MG TAB PO SCH ×3 (09:38→21:52)
[2021-10-26] MEDS: bisoproloL fumarate 5 MG TAB PO SCH (09:38)
[2021-10-26] MEDS: PRAVASTATIN 20 MG TAB PO SCH (21:50)
[2021-10-27 05:54] VITALS: BP 151/73
[2021-10-27] MEDS: ISOSORBIDE DIN (ISORDIL) 10MG TAB PO SCH ×2 (06:07→12:48)
[2021-10-27] MEDS: HEPARIN SOD (PORCINE) 5000UNITS/ML 1ML VIAL/SYRINGE SQ SCH ×2 (06:07→12:49)
[2021-10-27 07:28] LABS: ALBUMIN 2.3 GM/DL (3.2-5.2); BILIRUBIN,TOTAL 0.3 MG/DL (0.2-1.0); CALCIUM LEVEL 7.6 MG/DL (8.8-10.2); CREATININE FOR GFR 2.59 MG/DL (0.70-1.30); GLOMERULAR FILTRATION RATE 25.3 (>35); TOTAL PROTEIN 5.7 GM/DL (6.4-8.2)
[2021-10-27] MEDS: CLOPIDOGREL 75 MG TAB PO SCH (08:06)
[2021-10-27] MEDS: OMEPRAZOLE 20MG CAP PO SCH (08:06)
[2021-10-27] MEDS: ASPIRIN 81MG ENTERIC TABLET PO SCH (08:06)
[2021-10-27] MEDS: **hydrALAZINE** 10 MG TAB PO SCH (08:07)
[2021-10-27] MEDS: bisoproloL fumarate 5 MG TAB PO SCH (08:07)
[2021-10-27] MEDS: LEVEMIR (INSULIN DETEMIR) 1 UNITS/0.01ML SC SCH (08:08)
[2021-10-27] MEDS: INSULIN LISPRO (NovoLOG) PER UNIT SC SCH ×2 (08:08→12:48)
[2021-10-27] MEDS ORDERED: LANTINJ4 SC (09:43)
[2021-10-27] MEDS ORDERED: TORS20TA2 PO (12:32)
[2021-10-27 12:48] VITALS: BP 136/65
== END 2021-10-27 15:01 | disposition home or self-care (01) | DRG 682 ==
LOC: M ED 10:51 → M ED INP 13:14 → ENRESERV 15:20 → M MSPAV 18:03
PROVIDERS: ADMIT Family Medicine; ATTEND Internal Medicine
DX: N17.9 Acute kidney failure, unspecified (principal); I21.4 Non-ST elevation (NSTEMI) myocardial infarction; I13.0 Hypertensive heart and chronic kidney disease with heart failure and stage 1 through stage 4 chronic kidney disease, or unspecified chronic kidney disease; I50.22 Chronic systolic (congestive) heart failure; I25.10 Atherosclerotic heart disease of native coronary artery without angina pectoris; E78.5 Hyperlipidemia, unspecified; N18.32 Chronic kidney disease, stage 3b; L97.519 Non-pressure chronic ulcer of other part of right foot with unspecified severity; Z89.421 Acquired absence of other right toe(s); Z88.2 Allergy status to sulfonamides; Z88.5 Allergy status to narcotic agent; Z88.8 Allergy status to other drugs, medicaments and biological substances; Z79.82 Long term (current) use of aspirin; Z79.899 Other long term (current) drug therapy; Z95.2 Presence of prosthetic heart valve; E11.40 Type 2 diabetes mellitus with diabetic neuropathy, unspecified; E53.8 Deficiency of other specified B group vitamins; Z87.442 Personal history of urinary calculi; D50.9 Iron deficiency anemia, unspecified; Z79.4 Long term (current) use of insulin; E11.22 Type 2 diabetes mellitus with diabetic chronic kidney disease

== ENCOUNTER → 2021-11-07 | Outpatient (REF) | payer MEDICARE ==
[~2021-11-07] MED LIST changes: +CALC200T15 PO; +ISOS20TA4 PO; +MIRA3350 PO; +PLAV1TAB2 PO; +TORS20TA2 PO
[2021-11-07 18:38] LABS: PERCENT SATURATION 30.2 % (19.7-50.0)
== END ==
LOC: M LAB REF 16:46
PROVIDERS: ATTEND Internal Medicine Nephrology
DX: D50.9 Iron deficiency anemia, unspecified (principal)

== ENCOUNTER → 2021-12-12 | Outpatient (REF) | payer MEDICARE ==
[2021-12-12 18:03] LABS: HEMATOCRIT 35.9 % (42.0-52.0); HEMOGLOBIN 11.2 g/dl (13.5-17.5); MEAN CORPUSCULAR HEMOGLOBIN 28.7 pg (27.0-33.0); MEAN CORPUSCULAR HGB CONC 31.2 g/dl (32.0-36.5); MEAN CORPUSCULAR VOLUME 92.1 fl (80.0-96.0); PLATELET COUNT, AUTOMATED 238 10^3/uL (150-450); WHITE BLOOD COUNT 7.1 10^3/uL (4.0-10.0)
[2021-12-12 18:24] LABS: HEMOGLOBIN A1c 7.9 %
[2021-12-12 18:42] LABS: ALBUMIN 3.3 GM/DL (3.2-5.2); BILIRUBIN,TOTAL 0.3 MG/DL (0.2-1.0); CALCIUM LEVEL 8.9 MG/DL (8.8-10.2); CHOLESTEROL RISK RATIO 3.511 (<5); CREATININE FOR GFR 2.85 MG/DL (0.70-1.30); GLOMERULAR FILTRATION RATE 22.6 (>35); MAGNESIUM LEVEL 2.5 MG/DL (1.8-2.4); POTASSIUM SERUM 4.6 MEQ/L (3.5-5.1); TOTAL PROTEIN 7.3 GM/DL (6.4-8.2)
== END ==
LOC: M SFHCADAM 13:48
PROVIDERS: ATTEND Family Medicine
DX: N18.4 Chronic kidney disease, stage 4 (severe) (principal); D63.1 Anemia in chronic kidney disease; E11.649 Type 2 diabetes mellitus with hypoglycemia without coma; E78.00 Pure hypercholesterolemia, unspecified; E11.40 Type 2 diabetes mellitus with diabetic neuropathy, unspecified

== ENCOUNTER → 2022-01-21 | Outpatient (CLI) | payer MEDICARE ==
[~2022-01-21] MED LIST changes: +CLOP75TA99 PO; -PLAV1TAB2 PO
== END ==
LOC: M CARPUL 11:46
PROVIDERS: ATTEND Physician Assistant
DX: I25.5 Ischemic cardiomyopathy (principal); I50.42 Chronic combined systolic (congestive) and diastolic (congestive) heart failure

== ENCOUNTER → 2022-04-08 | Outpatient (CLI) | payer MEDICARE ==
[2022-04-08 13:40] LABS: CALCIUM LEVEL 9.2 MG/DL (8.3-10.6); CREATININE FOR GFR 3.03 MG/DL (0.70-1.30); GLOMERULAR FILTRATION RATE 21.1 (>35); HEMOGLOBIN A1c 9.2 % (4.0-6.0); POTASSIUM SERUM 4.9 MMOL/L (3.5-5.1)
== END ==
LOC: M WUC 10:52
PROVIDERS: ATTEND Family Medicine
DX: E11.40 Type 2 diabetes mellitus with diabetic neuropathy, unspecified (principal)

== ENCOUNTER → 2022-06-19 | Outpatient (REF) | payer MEDICARE ==
[2022-06-19 16:06] LABS: HEMATOCRIT 36.2 % (42.0-52.0); HEMOGLOBIN 11.5 g/dl (13.5-17.5); MEAN CORPUSCULAR HEMOGLOBIN 28.9 pg (27.0-33.0); MEAN CORPUSCULAR HGB CONC 31.8 g/dl (32.0-36.5); PLATELET COUNT, AUTOMATED 223 10^3/uL (150-450); RED BLOOD COUNT 3.98 10^6/uL (4.30-6.10)
[2022-06-19 16:14] LABS: ALBUMIN 3.2 G/DL (3.2-5.2); BILIRUBIN,TOTAL 0.3 MG/DL (0.3-1.2); CALCIUM LEVEL 8.7 MG/DL (8.3-10.6); CHOLESTEROL RISK RATIO 3.42 (<5); CREATININE FOR GFR 2.35 MG/DL (0.70-1.30); GLOMERULAR FILTRATION RATE 28.3 (>35); HDL CHOLESTEROL 42.3 MG/DL (>40); LDL CHOLESTEROL 66.9 MG/DL (<100); NON-HDL-C 102.7 MG/DL; POTASSIUM SERUM 4.8 MMOL/L (3.5-5.1); TOTAL PROTEIN 6.7 G/DL (5.7-8.2)
[2022-06-19 23:03] LABS: HEMOGLOBIN A1c 8.5 % (4.0-6.0)
== END ==
LOC: M SHH 14:55
PROVIDERS: ATTEND Family Medicine
DX: E11.40 Type 2 diabetes mellitus with diabetic neuropathy, unspecified (principal); N18.4 Chronic kidney disease, stage 4 (severe); E78.00 Pure hypercholesterolemia, unspecified

== ENCOUNTER → 2022-06-21 | Outpatient (REF) | payer MEDICARE ==
[2022-06-21 15:28] LABS: MAU/CREAT RATIO 429.1 MCG/MG (0.0-30.0)
== END ==
LOC: M SFHCADAM 14:36
PROVIDERS: ATTEND Family Medicine
DX: E11.40 Type 2 diabetes mellitus with diabetic neuropathy, unspecified (principal); N18.4 Chronic kidney disease, stage 4 (severe); E78.00 Pure hypercholesterolemia, unspecified

== ENCOUNTER → 2022-08-28 | Outpatient (REF) | payer MEDICARE | LOC: M SHH 16:06 | PROVIDERS: ATTEND Podiatrist | DX: L97.512 Non-pressure chronic ulcer of other part of right foot with fat layer exposed (principal) ==

== ENCOUNTER → 2023-01-06 | Outpatient (REF) | payer MEDICARE ==
[2023-01-06 15:00] LABS: HEMATOCRIT 36.1 % (42.0-52.0); HEMOGLOBIN 11.4 g/dl (13.5-17.5); MEAN CORPUSCULAR HEMOGLOBIN 27.9 pg (27.0-33.0); MEAN CORPUSCULAR HGB CONC 31.6 g/dl (32.0-36.5); MEAN CORPUSCULAR VOLUME 88.3 fl (80.0-96.0); PLATELET COUNT, AUTOMATED 295 10^3/uL (150-450); RED BLOOD COUNT 4.09 10^6/uL (4.30-6.10); WHITE BLOOD COUNT 10.3 10^3/uL (4.0-10.0)
[2023-01-06 15:23] LABS: HEMOGLOBIN A1c 8.4 % (4.0-6.0)
[2023-01-06 15:33] LABS: ALBUMIN 3.1 G/DL (3.2-5.2); BILIRUBIN,TOTAL 0.3 MG/DL (0.3-1.2); CHOLESTEROL RISK RATIO 3.49 (<5); CREATININE FOR GFR 2.34 MG/DL (0.70-1.30); GLOMERULAR FILTRATION RATE 28.3 (>35); HDL CHOLESTEROL 43.5 MG/DL (>40); LDL CHOLESTEROL 78.1 MG/DL (<100); NON-HDL-C 108.5 MG/DL; POTASSIUM SERUM 5.1 MMOL/L (3.5-5.1); TOTAL PROTEIN 6.9 G/DL (5.7-8.2)
== END ==
LOC: M SHH 14:37
PROVIDERS: ATTEND Family Medicine
DX: N18.4 Chronic kidney disease, stage 4 (severe) (principal); I25.10 Atherosclerotic heart disease of native coronary artery without angina pectoris; E11.40 Type 2 diabetes mellitus with diabetic neuropathy, unspecified

== ENCOUNTER → 2023-01-21 | Outpatient (REF) | payer MEDICARE | LOC: M LAB REF 15:35 | PROVIDERS: ATTEND Podiatrist | DX: L03.125 Acute lymphangitis of right lower limb (principal) ==

== ENCOUNTER → 2023-02-26 | Outpatient (CLI) | payer MEDICARE ==
[2023-02-26 18:37] LABS: BASO # 0.1 10^3/uL (0.0-0.2); BASO % 0.6 % (0.0-1.0); EOS # 0.2 10^3/uL (0.0-0.5); EOS % 2.6 % (0.0-3.0); HEMATOCRIT 35.9 % (42.0-52.0); HEMOGLOBIN 11.1 g/dl (13.5-17.5); LYMPH # 1.2 10^3/uL (1.5-5.0); LYMPH % 15.5 % (24.0-44.0); MEAN CORPUSCULAR HGB CONC 30.9 g/dl (32.0-36.5); MEAN CORPUSCULAR VOLUME 90.4 fl (80.0-96.0); MONO # 0.6 10^3/uL (0.0-0.8); MONO % 7.7 % (2.0-8.0); NEUTROPHILS # 5.7 10^3/uL (1.5-8.5); NEUTROPHILS % 73.3 % (36.0-66.0); PLATELET COUNT, AUTOMATED 291 10^3/uL (150-450); RED BLOOD COUNT 3.97 10^6/uL (4.30-6.10); WHITE BLOOD COUNT 7.8 10^3/uL (4.0-10.0)
[2023-02-26 19:03] LABS: ALBUMIN 3.2 G/DL (3.2-5.2); BILIRUBIN,TOTAL 0.3 MG/DL (0.3-1.2); CALCIUM LEVEL 8.7 MG/DL (8.3-10.6); CREATININE FOR GFR 2.35 MG/DL (0.70-1.30); GLOMERULAR FILTRATION RATE 28.2 (>35); POTASSIUM SERUM 4.2 MMOL/L (3.5-5.1); TOTAL PROTEIN 6.7 G/DL (5.7-8.2)
== END ==
LOC: M WUC 15:16
PROVIDERS: ATTEND Podiatrist
DX: M20.41 Other hammer toe(s) (acquired), right foot (principal); M79.671 Pain in right foot; J98.11 Atelectasis

== ENCOUNTER 2023-03-21 06:00 | Day surgery (SDC) | payer MEDICARE ==
[~2023-03-21] VITALS: Ht 172.7 cm; Wt 82.9 kg
[~2023-03-21 06:00] MED LIST changes: +CALC1CAP31 PO; +HYDR-161 PO; -HYDR10TAB PO; +IRBE75TA11 PO; -IRBE75TA4 PO; +ceFAZolin SOD 2 GM in IV 1 EA IV ONE
[2023-03-21] MEDS ORDERED: LR 1,000 ML IV SCH (07:00)
[2023-03-21] MEDS ORDERED: propofoL 200 MG/20 ML VIAL As Ordered ONE (07:04)
[2023-03-21] MEDS ORDERED: LIDOCAINE 2% 100MG/5ML SDV (FOR ANES.) As Ordered ONE (07:04)
[2023-03-21] MEDS ORDERED: ONDANSETRON 4MG 2ML VIAL As Ordered ONE (07:04)
[2023-03-21] MEDS ORDERED: KETOROLAC 60MG 2ML VIAL As Ordered ONE (07:04)
[2023-03-21] MEDS ORDERED: ACETAMINOPHEN 1000MG 100ML IV BAG As Ordered ONE (07:04)
[2023-03-21] MEDS ORDERED: fentaNYL 100 MCG/2 ML INJECTION As Ordered ONE (07:06)
[2023-03-21] MEDS ORDERED: LANTINJ4 SC ×2 (07:10)
[2023-03-21] MEDS ORDERED: LIDOCAINE 2% MDV 20ML VIAL As Ordered ONE (07:15)
[2023-03-21 08:42] VITALS: BP 150/72; TEMP 97.6; O2SAT 97
== END 2023-03-21 08:55 | disposition home or self-care (01) ==
LOC: M SDC 06:00
PROVIDERS: ATTEND Podiatrist
DX: M20.41 Other hammer toe(s) (acquired), right foot (principal); I10 Essential (primary) hypertension; E78.5 Hyperlipidemia, unspecified; E11.9 Type 2 diabetes mellitus without complications; K57.92 Diverticulitis of intestine, part unspecified, without perforation or abscess without bleeding; D64.9 Anemia, unspecified; I25.10 Atherosclerotic heart disease of native coronary artery without angina pectoris; I25.2 Old myocardial infarction; Z79.51 Long term (current) use of inhaled steroids; Z98.61 Coronary angioplasty status; Z88.8 Allergy status to other drugs, medicaments and biological substances; Z88.5 Allergy status to narcotic agent; Z88.2 Allergy status to sulfonamides; Z79.02 Long term (current) use of antithrombotics/antiplatelets; Z79.82 Long term (current) use of aspirin; Z79.84 Long term (current) use of oral hypoglycemic drugs; Z79.4 Long term (current) use of insulin
CPT/HCPCS: 28820; 73630; 88305; J0131; J0665; J0690; J1100; J1885; J2405; J3010

== ENCOUNTER → 2023-04-14 | Outpatient (REF) | payer MEDICARE ==
[~2023-04-14] MED LIST changes: -ceFAZolin SOD 2 GM in IV 1 EA IV ONE
[2023-04-14 17:39] LABS: CALCIUM LEVEL 8.8 MG/DL (8.3-10.6); CREATININE FOR GFR 2.29 MG/DL (0.70-1.30); GLOMERULAR FILTRATION RATE 29.1 (>35); POTASSIUM SERUM 4.3 MMOL/L (3.5-5.1)
[2023-04-14 17:41] LABS: HEMOGLOBIN A1c 8.8 % (4.0-6.0)
== END ==
LOC: M SHH 16:00
PROVIDERS: ATTEND Family Medicine
DX: E11.40 Type 2 diabetes mellitus with diabetic neuropathy, unspecified (principal)

== ENCOUNTER → 2023-04-17 | Outpatient (CLI) | payer MEDICARE ==
[~2023-04-17] MED LIST changes: -MIRA1POW3 PO; +MIRA33506 PO
== END ==
LOC: M ADAMS 14:16
PROVIDERS: ATTEND Family Medicine
DX: M17.12 Unilateral primary osteoarthritis, left knee (principal)

== ENCOUNTER → 2023-05-28 | Outpatient (CLI) | payer MEDICARE | LOC: M EKG 10:52 | PROVIDERS: ATTEND Physician Assistant | DX: I45.3 Trifascicular block (principal) ==

== ENCOUNTER → 2023-06-27 | Outpatient (REF) | payer MEDICARE ==
[2023-06-27 14:41] LABS: HEMOGLOBIN 10.7 g/dl (13.5-17.5); MEAN CORPUSCULAR HEMOGLOBIN 28.1 pg (27.0-33.0); MEAN CORPUSCULAR HGB CONC 31.5 g/dl (32.0-36.5); MEAN CORPUSCULAR VOLUME 89.2 fl (80.0-96.0); PLATELET COUNT, AUTOMATED 244 10^3/uL (150-450); RED BLOOD COUNT 3.81 10^6/uL (4.30-6.10)
[2023-06-27 15:07] LABS: ALBUMIN 2.9 G/DL (3.2-5.2); BILIRUBIN,TOTAL 0.3 MG/DL (0.3-1.2); CALCIUM LEVEL 9.4 MG/DL (8.3-10.6); CHOLESTEROL RISK RATIO 3.48 (<5); CREATININE FOR GFR 2.37 MG/DL (0.70-1.30); GLOMERULAR FILTRATION RATE 27.9 (>35); HDL CHOLESTEROL 40.7 MG/DL (>40); LDL CHOLESTEROL 69.3 MG/DL (<100); NON-HDL-C 101.3 MG/DL; POTASSIUM SERUM 4.6 MMOL/L (3.5-5.1); TOTAL PROTEIN 6.4 G/DL (5.7-8.2)
[2023-06-27 15:17] LABS: HEMOGLOBIN A1c 8.4 % (4.0-6.0)
== END ==
LOC: M SHH 14:10
PROVIDERS: ATTEND Family Medicine
DX: N18.4 Chronic kidney disease, stage 4 (severe) (principal); I11.9 Hypertensive heart disease without heart failure; E11.40 Type 2 diabetes mellitus with diabetic neuropathy, unspecified; I25.10 Atherosclerotic heart disease of native coronary artery without angina pectoris; E11.22 Type 2 diabetes mellitus with diabetic chronic kidney disease

== ENCOUNTER → 2023-07-01 | Outpatient (REF) | payer MEDICARE ==
[~2023-07-01] MED LIST changes: -GLIM1TAB4 PO; +GLIM1TAB84 PO
== END ==
LOC: M LAB REF 12:44
PROVIDERS: ATTEND Podiatrist
DX: L03.121 Acute lymphangitis of right axilla (principal)

== ENCOUNTER 2023-08-10 10:23 | Inpatient (IN) | payer MEDICARE ==
[~2023-08-10] VITALS: Ht 172.7 cm; Wt 78.6 kg
[2023-08-10] MEDS: NS 500 ML IV ONE (11:26)
[2023-08-10 11:27] LABS: VENOUS BASE EXCESS -2.2 (-2.0-2.0); VENOUS HCO3 24.3 MMOL/L (23.0-27.0); VENOUS O2 SATURATION 43.2 % (60.0-80.0); VENOUS PARTIAL PRESSURE CO2 48.9 mmHg (38.0-50.0); VENOUS PH 7.314 UNITS (7.330-7.430); VENOUS STANDARD HCO3 21.5 MMOL/L; VENOUS TOTAL CO2 25.8 MMOL/L (24.0-28.0)
[2023-08-10 11:29] LABS: BASO % 0.5 % (0.0-1.0); EOS # 0.2 10^3/uL (0.0-0.5); EOS % 1.7 % (0.0-3.0); HEMATOCRIT 35.3 % (42.0-52.0); HEMOGLOBIN 11.5 g/dl (13.5-17.5); LYMPH # 0.5 10^3/uL (1.5-5.0); LYMPH % 5.6 % (24.0-44.0); MEAN CORPUSCULAR HGB CONC 32.6 g/dl (32.0-36.5); MEAN CORPUSCULAR VOLUME 85.9 fl (80.0-96.0); MONO # 0.5 10^3/uL (0.0-0.8); MONO % 5.7 % (2.0-8.0); NEUTROPHILS # 7.5 10^3/uL (1.5-8.5); NEUTROPHILS % 86.3 % (36.0-66.0); PLATELET COUNT, AUTOMATED 303 10^3/uL (150-450); RED BLOOD COUNT 4.11 10^6/uL (4.30-6.10); WHITE BLOOD COUNT 8.7 10^3/uL (4.0-10.0)
[2023-08-10 11:55] LABS: CK-MB VALUE MASS 3.1 NG/ML (<3.6)
[2023-08-10 11:56] LABS: ALBUMIN 2.7 G/DL (3.2-5.2); BILIRUBIN,DIRECT 0.1 MG/DL (<0.4); BILIRUBIN,TOTAL 0.3 MG/DL (0.3-1.2); CALCIUM LEVEL 9.1 MG/DL (8.3-10.6); CREATININE FOR GFR 2.67 MG/DL (0.70-1.30); GLOMERULAR FILTRATION RATE 24.3 (>35); MAGNESIUM LEVEL 3.4 MG/DL (1.8-2.4); TOTAL PROTEIN 6.4 G/DL (5.7-8.2)
[2023-08-10 11:58] LABS: THYROID STIMULATING HORMONE 1.538 uIU/ML (0.55-4.78)
[2023-08-10 12:07] LABS: MB/CK RELATIVE INDEX 3.36 (< OR =4)
[2023-08-10] MEDS: IPRATROPIUM 0.5MG/ALBUTEROL 2.5MG INH SOL UD 3ML (DUONEB) NEB ONE (12:19)
[2023-08-10 13:10] LABS: MB/CK RELATIVE INDEX 3.84 (< OR =4)
[2023-08-10] MEDS ORDERED: GLUCOSE 4 GM CHEW PO PRN (16:25)
[2023-08-10] MEDS ORDERED: GLUCAGON INJ 1MG VIAL SC PRN (16:25)
[2023-08-10] MEDS ORDERED: **NOTE PATIENT COMMENT** MISC XX SCH (16:25)
[2023-08-10] MEDS ORDERED: DEXTROSE 50% 50ML SYRINGE IV PRN (16:25)
[2023-08-10] MEDS ORDERED: HYDR25TA88 PO (16:54)
[2023-08-10] MEDS ORDERED: TORS20TA2 PO (16:54)
[2023-08-10] MEDS ORDERED: HOME MED LIST COMPLETE! XX SCH (16:55)
[2023-08-10 17:45] VITALS: BP 105/76; TEMP 97.7; O2SAT 95
[2023-08-10] MEDS: LR 1,000 ML IV SCH (18:04)
[2023-08-10] MEDS: CYANOCOBALAMIN 500 MCG TAB PO SCH (18:10)
[2023-08-10] MEDS: OMEPRAZOLE 20MG CAP PO SCH (18:10)
[2023-08-10] MEDS: ASPIRIN 81MG ENTERIC TABLET PO SCH (18:11)
[2023-08-10] MEDS: bisoproloL fumarate 5 MG TAB PO SCH (18:11)
[2023-08-10] MEDS: CLOPIDOGREL 75 MG TAB PO SCH (18:11)
[2023-08-10] MEDS: INSULIN LISPRO (NovoLOG) PER UNIT SC SCH ×2 (18:12→21:00)
[2023-08-10] MEDS: **hydrALAZINE HCL** 25 MG TAB PO SCH (18:12)
[2023-08-10 20:00] VITALS: BP 150/72; TEMP 97.7; O2SAT 96
[2023-08-10] MEDS: PRAVASTATIN 20 MG TAB PO SCH (21:07)
[2023-08-10] MEDS: HEPARIN SOD (PORCINE) 5000UNITS/ML 1ML VIAL/SYRINGE SQ SCH (21:08)
[2023-08-11 00:35] VITALS: BP 133/58; TEMP 97.9; O2SAT 95
[2023-08-11 04:05] VITALS: BP 135/69; TEMP 97.7; O2SAT 95
[2023-08-11 06:10] LABS: MEAN CORPUSCULAR HEMOGLOBIN 27.6 pg (27.0-33.0); MEAN CORPUSCULAR HGB CONC 32.4 g/dl (32.0-36.5); MEAN CORPUSCULAR VOLUME 85.2 fl (80.0-96.0); PLATELET COUNT, AUTOMATED 276 10^3/uL (150-450); RED BLOOD COUNT 3.99 10^6/uL (4.30-6.10); WHITE BLOOD COUNT 7.9 10^3/uL (4.0-10.0)
[2023-08-11 06:40] LABS: CALCIUM LEVEL 8.7 MG/DL (8.3-10.6); CREATININE FOR GFR 2.36 MG/DL (0.70-1.30); GLOMERULAR FILTRATION RATE 28.1 (>35); MAGNESIUM LEVEL 2.7 MG/DL (1.8-2.4); POTASSIUM SERUM 3.6 MMOL/L (3.5-5.1)
[2023-08-11 08:00] VITALS: BP 143/73; TEMP 97.7; O2SAT 97
[2023-08-11] MEDS: CALCITRIOL 0.25 MCG CAP (S0169) PO SCH (08:12)
[2023-08-11 12:00] VITALS: BP 132/55; TEMP 97.9; O2SAT 97
[2023-08-11 20:00] VITALS: BP 154/68; TEMP 97.9; O2SAT 93
[2023-08-12] VITALS (7 sets, daily range): BP systolic 103–150; BP diastolic 40–72; TEMP 97.7–98.2; O2SAT 93–98
[2023-08-12 06:29] LABS: HEMATOCRIT 31.6 % (42.0-52.0); HEMOGLOBIN 10.2 g/dl (13.5-17.5); MEAN CORPUSCULAR HEMOGLOBIN 27.7 pg (27.0-33.0); MEAN CORPUSCULAR HGB CONC 32.3 g/dl (32.0-36.5); MEAN CORPUSCULAR VOLUME 85.9 fl (80.0-96.0); PLATELET COUNT, AUTOMATED 247 10^3/uL (150-450); RED BLOOD COUNT 3.68 10^6/uL (4.30-6.10); WHITE BLOOD COUNT 7.1 10^3/uL (4.0-10.0)
[2023-08-12 06:41] LABS: CALCIUM LEVEL 8.6 MG/DL (8.3-10.6); CREATININE FOR GFR 2.08 MG/DL (0.70-1.30); GLOMERULAR FILTRATION RATE 32.5 (>35); MAGNESIUM LEVEL 2.3 MG/DL (1.8-2.4); POTASSIUM SERUM 3.7 MMOL/L (3.5-5.1)
[2023-08-12] MEDS: NYSTATIN 100,000 UNITS/GM TOPICAL PWD 15GM TOP SCH (12:11)
[2023-08-12] MEDS: ISOSORBIDE DIN. (ISORDIL) 20 MG TAB PO SCH (21:27)
[2023-08-13 03:50] VITALS: BP 117/58; TEMP 97.9; O2SAT 95
[2023-08-13 06:06] LABS: HEMATOCRIT 32.5 % (42.0-52.0); HEMOGLOBIN 10.5 g/dl (13.5-17.5); MEAN CORPUSCULAR HEMOGLOBIN 28.1 pg (27.0-33.0); MEAN CORPUSCULAR HGB CONC 32.3 g/dl (32.0-36.5); MEAN CORPUSCULAR VOLUME 86.9 fl (80.0-96.0); PLATELET COUNT, AUTOMATED 263 10^3/uL (150-450); RED BLOOD COUNT 3.74 10^6/uL (4.30-6.10); WHITE BLOOD COUNT 8.4 10^3/uL (4.0-10.0)
[2023-08-13 07:36] LABS: CALCIUM LEVEL 8.4 MG/DL (8.3-10.6); CREATININE FOR GFR 2.29 MG/DL (0.70-1.30); GLOMERULAR FILTRATION RATE 29.1 (>35); MAGNESIUM LEVEL 2.1 MG/DL (1.8-2.4); POTASSIUM SERUM 3.8 MMOL/L (3.5-5.1)
[2023-08-13 08:00] VITALS: BP 157/70; TEMP 97.7; O2SAT 97
[2023-08-13] MEDS: LEVEMIR (INSULIN DETEMIR) 1 UNITS/0.01ML SC SCH (08:25)
[2023-08-13 12:00] VITALS: BP 124/55; TEMP 97.7; O2SAT 98
[2023-08-13 18:00] VITALS: BP 128/50; TEMP 97.5; O2SAT 97
[2023-08-13 20:54] VITALS: BP 136/63; TEMP 97.9; O2SAT 96
[2023-08-14 00:09] VITALS: BP 113/56; TEMP 97.9; O2SAT 95
[2023-08-14 04:25] VITALS: BP 132/54; TEMP 97.7; O2SAT 95
[2023-08-14 06:21] LABS: HEMATOCRIT 27.9 % (42.0-52.0); HEMOGLOBIN 9.2 g/dl (13.5-17.5); MEAN CORPUSCULAR HEMOGLOBIN 28.7 pg (27.0-33.0); MEAN CORPUSCULAR VOLUME 86.9 fl (80.0-96.0); PLATELET COUNT, AUTOMATED 237 10^3/uL (150-450); RED BLOOD COUNT 3.21 10^6/uL (4.30-6.10)
[2023-08-14 06:46] LABS: CREATININE FOR GFR 2.21 MG/DL (0.70-1.30); GLOMERULAR FILTRATION RATE 30.3 (>35); POTASSIUM SERUM 3.5 MMOL/L (3.5-5.1)
[2023-08-14 08:00] VITALS: BP 144/67; TEMP 97.9; O2SAT 97
[2023-08-14] MEDS: AZITHROMYCIN 250MG TABLET PO SCH (08:49)
[2023-08-14] MEDS ORDERED: AZIT-12 PO (08:50)
[2023-08-14 09:06] VITALS: BP 137/63
[2023-08-16] MEDS ORDERED: AZITHROMYCIN 250MG TABLET PO SCH (09:00)
== END 2023-08-14 11:51 | disposition home health service (06) | DRG 372 ==
LOC: EDBD 10:23 → M ED 10:23 → EEVIPCON 16:25 → M ED INP 16:25 → M MSPAV 17:53
PROVIDERS: ADMIT Family Medicine; ATTEND Internal Medicine
DX: A04.5 Campylobacter enteritis (principal); N18.4 Chronic kidney disease, stage 4 (severe); I50.22 Chronic systolic (congestive) heart failure; J90 Pleural effusion, not elsewhere classified; I13.0 Hypertensive heart and chronic kidney disease with heart failure and stage 1 through stage 4 chronic kidney disease, or unspecified chronic kidney disease; A08.11 Acute gastroenteropathy due to Norwalk agent; M06.9 Rheumatoid arthritis, unspecified; E11.40 Type 2 diabetes mellitus with diabetic neuropathy, unspecified; E11.22 Type 2 diabetes mellitus with diabetic chronic kidney disease; I25.10 Atherosclerotic heart disease of native coronary artery without angina pectoris; E78.5 Hyperlipidemia, unspecified; E11.621 Type 2 diabetes mellitus with foot ulcer; L97.529 Non-pressure chronic ulcer of other part of left foot with unspecified severity; Z88.5 Allergy status to narcotic agent; Z88.2 Allergy status to sulfonamides; Z88.8 Allergy status to other drugs, medicaments and biological substances; Z79.82 Long term (current) use of aspirin; Z79.899 Other long term (current) drug therapy; Z79.4 Long term (current) use of insulin; Z95.1 Presence of aortocoronary bypass graft; Z89.421 Acquired absence of other right toe(s); D63.1 Anemia in chronic kidney disease; I25.2 Old myocardial infarction; Z87.442 Personal history of urinary calculi

== ENCOUNTER → 2023-08-19 | Outpatient (REF) | payer MEDICARE ==
[~2023-08-19] MED LIST changes: +AZIT-12 PO; +HYDR25TA88 PO
== END ==
LOC: M LAB REF 16:19
PROVIDERS: ATTEND Podiatrist
DX: E11.621 Type 2 diabetes mellitus with foot ulcer (principal)

== ENCOUNTER → 2024-01-06 | Outpatient (CLI) | payer MEDICARE ==
[~2024-01-06] MED LIST changes: +GABA-1172; -GABA-282
[2024-01-06 16:37] LABS: CALCIUM LEVEL 9.9 MG/DL (8.3-10.6); CREATININE FOR GFR 2.33 MG/DL (0.70-1.30); GLOMERULAR FILTRATION RATE 28.4 (>35); POTASSIUM SERUM 5.1 MMOL/L (3.5-5.1)
[2024-01-06 17:20] LABS: HEMOGLOBIN A1c 8.3 % (4.0-6.0)
== END ==
LOC: M WUC 11:02
PROVIDERS: ATTEND Family Medicine
DX: N18.4 Chronic kidney disease, stage 4 (severe) (principal); E11.40 Type 2 diabetes mellitus with diabetic neuropathy, unspecified; E11.22 Type 2 diabetes mellitus with diabetic chronic kidney disease

== ENCOUNTER 2024-04-09 11:34 | Inpatient (IN) | payer MEDICARE ==
[~2024-04-09] VITALS: Ht 180.3 cm; Wt 83.0 kg
[~2024-04-09 11:34] MED LIST changes: -CYCL5TAB PO; +CYCL5TAB4 PO
[2024-04-09 12:36] LABS: BASO % 0.2 % (0.0-1.0); EOS # 0.1 10^3/uL (0.0-0.5); HEMATOCRIT 32.4 % (42.0-52.0); LYMPH # 0.4 10^3/uL (1.5-5.0); LYMPH % 4.7 % (24.0-44.0); MEAN CORPUSCULAR HEMOGLOBIN 27.9 pg (27.0-33.0); MEAN CORPUSCULAR HGB CONC 30.9 g/dl (32.0-36.5); MEAN CORPUSCULAR VOLUME 90.3 fl (80.0-96.0); MONO # 0.5 10^3/uL (0.0-0.8); MONO % 6.3 % (2.0-8.0); NEUTROPHILS # 7.2 10^3/uL (1.5-8.5); NEUTROPHILS % 87.3 % (36.0-66.0); PLATELET COUNT, AUTOMATED 198 10^3/uL (150-450); RED BLOOD COUNT 3.59 10^6/uL (4.30-6.10); WHITE BLOOD COUNT 8.3 10^3/uL (4.0-10.0)
[2024-04-09 14:43] LABS: ALBUMIN 2.8 G/DL (3.2-5.2); ALKALINE PHOSPHATASE 60 U/L (40-129); ALT/SGPT 35 U/L (7.0-40); AST/SGOT 29 U/L (<34); BILIRUBIN,DIRECT < 0.1 MG/DL (<0.4); BILIRUBIN,TOTAL 0.3 MG/DL (0.3-1.2); BLOOD UREA NITROGEN 82 MG/DL (9-23); CALCIUM LEVEL 8.8 MG/DL (8.3-10.6); CARBON DIOXIDE LEVEL 26 MMOL/L (20-31); CHLORIDE LEVEL 104 MMOL/L (98-107); CREATININE FOR GFR 2.64 MG/DL (0.70-1.30); GLOMERULAR FILTRATION RATE 24.6 (>35); GLUCOSE, FASTING 336 MG/DL (74-106); POTASSIUM SERUM 5.2 MMOL/L (3.5-5.1); SODIUM LEVEL 138 MMOL/L (136-145); TOTAL PROTEIN 6.3 G/DL (5.7-8.2)
[2024-04-09] MEDS ORDERED: HOME MED LIST COMPLETE! XX SCH (15:20)
[2024-04-09] MEDS: FUROSEMIDE 100MG/10ML VIAL IV ONE (16:11)
[2024-04-09] MEDS: IPRATROPIUM 0.5MG/ALBUTEROL 2.5MG INH SOL UD 3ML (DUONEB) NEB ONE (16:13)
[2024-04-09] MEDS ORDERED: GLUCAGON INJ 1MG VIAL SC PRN (16:55)
[2024-04-09] MEDS ORDERED: GLUCOSE 4 GM CHEW PO PRN (16:55)
[2024-04-09] MEDS ORDERED: HumuLIN R (REGULAR) INSULIN (NovoLIN R) **100U/ML** PER UNIT IV STA (16:56)
[2024-04-09] MEDS: INSULIN LISPRO (NovoLOG) PER UNIT SC SCH ×2 (18:34→21:00)
[2024-04-09] MEDS: PRAVASTATIN 20 MG TAB PO SCH (21:28)
[2024-04-09] MEDS: bisoproloL fumarate 5 MG TAB PO SCH (21:28)
[2024-04-09] MEDS: **hydrALAZINE HCL** 25 MG TAB PO SCH (21:30)
[2024-04-09] MEDS: ISOSORBIDE DIN. (ISORDIL) 20 MG TAB PO SCH (23:02)
[2024-04-09 23:53] VITALS: BP 146/73; TEMP 97; O2SAT 96
[2024-04-10 03:27] VITALS: BP 128/72; TEMP 97.8; O2SAT 96
[2024-04-10 05:37] LABS: CREATININE FOR GFR 2.7 MG/DL (0.70-1.30); MAGNESIUM LEVEL 2.2 MG/DL (1.8-2.4); POTASSIUM SERUM 4.5 MMOL/L (3.5-5.1)
[2024-04-10] MEDS: DEXTROSE 50% 50ML SYRINGE IV PRN (05:46)
[2024-04-10 08:38] LABS: BASO % 0.3 % (0.0-1.0); EOS # 0.2 10^3/uL (0.0-0.5); HEMATOCRIT 28.8 % (42.0-52.0); HEMOGLOBIN 8.8 g/dl (13.5-17.5); LYMPH # 0.6 10^3/uL (1.5-5.0); LYMPH % 7.9 % (24.0-44.0); MEAN CORPUSCULAR HEMOGLOBIN 27.2 pg (27.0-33.0); MEAN CORPUSCULAR HGB CONC 30.6 g/dl (32.0-36.5); MEAN CORPUSCULAR VOLUME 88.9 fl (80.0-96.0); MONO # 0.7 10^3/uL (0.0-0.8); MONO % 9.3 % (2.0-8.0); NEUTROPHILS # 5.6 10^3/uL (1.5-8.5); NEUTROPHILS % 79.1 % (36.0-66.0); PLATELET COUNT, AUTOMATED 188 10^3/uL (150-450); RED BLOOD COUNT 3.24 10^6/uL (4.30-6.10); WHITE BLOOD COUNT 7.1 10^3/uL (4.0-10.0)
[2024-04-10] MEDS: HEPARIN SOD (PORCINE) 5000UNITS/ML 1ML VIAL/SYRINGE SC SCH (08:57)
[2024-04-10] MEDS: LEVEMIR (INSULIN DETEMIR) 1 UNITS/0.01ML SC SCH (08:58)
[2024-04-10] MEDS: FUROSEMIDE 40MG/4ML VIAL IV SCH ×2 (08:58→21:12)
[2024-04-10] MEDS: CLOPIDOGREL 75 MG TAB PO SCH (08:58)
[2024-04-10] MEDS: MAGNESIUM GLUCONATE 500 MG TAB PO SCH (08:58)
[2024-04-10] MEDS: ASPIRIN 81MG ENTERIC TABLET PO SCH (08:58)
[2024-04-10] MEDS: CALCITRIOL 0.25 MCG CAP (S0169) PO SCH (08:59)
[2024-04-10] MEDS: OMEPRAZOLE 20MG CAP PO SCH (08:59)
[2024-04-10] MEDS ORDERED: LEVEMIR (INSULIN DETEMIR) 1 UNITS/0.01ML SC SCH (09:00)
[2024-04-10 10:24] LABS: PROCALCITONIN 0.3 ng/ml
[2024-04-10 12:00] VITALS: BP 136/97; TEMP 97.5; O2SAT 93
[2024-04-10 20:21] VITALS: BP 147/67; TEMP 97.5; O2SAT 91
[2024-04-10 21:15] VITALS: O2SAT 89
[2024-04-10 21:16] VITALS: O2SAT 92
[2024-04-11] MEDS: guaiFENesin ER TABLET 600 MG TAB PO SCH (01:14)
[2024-04-11] MEDS: IPRATROPIUM 0.5MG/ALBUTEROL 2.5MG INH SOL UD 3ML (DUONEB) NEB PRN (01:57)
[2024-04-11] MEDS: NYSTATIN 100,000 UNITS/GM TOPICAL PWD 15GM TOP SCH (02:48)
[2024-04-11 03:53] VITALS: BP 111/51; TEMP 97.5; O2SAT 93
[2024-04-11 06:34] LABS: BASO % 0.7 % (0.0-1.0); EOS # 0.3 10^3/uL (0.0-0.5); EOS % 5.3 % (0.0-3.0); HEMATOCRIT 31.3 % (42.0-52.0); HEMOGLOBIN 9.8 g/dl (13.5-17.5); LYMPH # 0.7 10^3/uL (1.5-5.0); MEAN CORPUSCULAR HEMOGLOBIN 27.6 pg (27.0-33.0); MEAN CORPUSCULAR HGB CONC 31.3 g/dl (32.0-36.5); MEAN CORPUSCULAR VOLUME 88.2 fl (80.0-96.0); MONO # 0.5 10^3/uL (0.0-0.8); MONO % 9.1 % (2.0-8.0); NEUTROPHILS # 4.2 10^3/uL (1.5-8.5); NEUTROPHILS % 72.4 % (36.0-66.0); PLATELET COUNT, AUTOMATED 183 10^3/uL (150-450); RED BLOOD COUNT 3.55 10^6/uL (4.30-6.10); WHITE BLOOD COUNT 5.8 10^3/uL (4.0-10.0)
[2024-04-11 07:04] LABS: CALCIUM LEVEL 9.3 MG/DL (8.3-10.6); CREATININE FOR GFR 2.63 MG/DL (0.70-1.30); GLOMERULAR FILTRATION RATE 24.7 (>35); MAGNESIUM LEVEL 2.2 MG/DL (1.8-2.4); POTASSIUM SERUM 4.6 MMOL/L (3.5-5.1)
[2024-04-11] MEDS: FUROSEMIDE 40MG/4ML VIAL IV SCH (08:49)
[2024-04-11 12:00] VITALS: BP 148/71; TEMP 97.2; O2SAT 95
[2024-04-11] MEDS: TORSEMIDE 20 MG TAB PO SCH (17:41)
[2024-04-11 21:00] VITALS: BP 146/78; TEMP 97.3; O2SAT 92
[2024-04-11] MEDS: ACETAMINOPHEN 325 MG TAB PO PRN (21:30)
[2024-04-12] VITALS (7 sets, daily range): BP systolic 83–140; BP diastolic 43–62; TEMP 97.3–97.9; O2SAT 92–94
[2024-04-12 04:53] LABS: BASO % 0.6 % (0.0-1.0); EOS # 0.2 10^3/uL (0.0-0.5); EOS % 3.8 % (0.0-3.0); HEMATOCRIT 30.2 % (42.0-52.0); HEMOGLOBIN 9.6 g/dl (13.5-17.5); LYMPH # 0.6 10^3/uL (1.5-5.0); LYMPH % 8.8 % (24.0-44.0); MEAN CORPUSCULAR HEMOGLOBIN 27.8 pg (27.0-33.0); MEAN CORPUSCULAR HGB CONC 31.8 g/dl (32.0-36.5); MEAN CORPUSCULAR VOLUME 87.5 fl (80.0-96.0); MONO # 0.6 10^3/uL (0.0-0.8); MONO % 9.8 % (2.0-8.0); NEUTROPHILS # 4.9 10^3/uL (1.5-8.5); NEUTROPHILS % 76.8 % (36.0-66.0); PLATELET COUNT, AUTOMATED 187 10^3/uL (150-450); RED BLOOD COUNT 3.45 10^6/uL (4.30-6.10); WHITE BLOOD COUNT 6.4 10^3/uL (4.0-10.0)
[2024-04-12 05:13] LABS: CALCIUM LEVEL 9.1 MG/DL (8.3-10.6); CREATININE FOR GFR 2.98 MG/DL (0.70-1.30); GLOMERULAR FILTRATION RATE 21.4 (>35); MAGNESIUM LEVEL 2.2 MG/DL (1.8-2.4); POTASSIUM SERUM 4.5 MMOL/L (3.5-5.1)
[2024-04-12] MEDS: MOM 30ML SUSPENSION UDC PO PRN (06:21)
[2024-04-12] MEDS: NS 500 ML IV ONE (10:17)
[2024-04-13 03:47] VITALS: BP 118/57; TEMP 97.3; O2SAT 96
[2024-04-13 06:51] LABS: BASO # 0.1 10^3/uL (0.0-0.2); BASO % 0.8 % (0.0-1.0); EOS # 0.3 10^3/uL (0.0-0.5); EOS % 5.2 % (0.0-3.0); HEMATOCRIT 30.6 % (42.0-52.0); HEMOGLOBIN 9.6 g/dl (13.5-17.5); LYMPH # 0.6 10^3/uL (1.5-5.0); LYMPH % 10.4 % (24.0-44.0); MEAN CORPUSCULAR HEMOGLOBIN 27.8 pg (27.0-33.0); MEAN CORPUSCULAR HGB CONC 31.4 g/dl (32.0-36.5); MEAN CORPUSCULAR VOLUME 88.7 fl (80.0-96.0); MONO # 0.6 10^3/uL (0.0-0.8); MONO % 9.3 % (2.0-8.0); NEUTROPHILS # 4.5 10^3/uL (1.5-8.5); PLATELET COUNT, AUTOMATED 194 10^3/uL (150-450); RED BLOOD COUNT 3.45 10^6/uL (4.30-6.10); WHITE BLOOD COUNT 6.1 10^3/uL (4.0-10.0)
[2024-04-13 07:36] LABS: CREATININE FOR GFR 2.8 MG/DL (0.70-1.30); MAGNESIUM LEVEL 2.4 MG/DL (1.8-2.4)
[2024-04-13 11:56] VITALS: BP 161/84; TEMP 97.7; O2SAT 95
[2024-04-13 20:30] VITALS: BP 155/78; TEMP 97.5; O2SAT 95
[2024-04-14 04:17] VITALS: BP 120/78; TEMP 97.9; O2SAT 94
[2024-04-14 05:17] LABS: BASO % 0.5 % (0.0-1.0); EOS # 0.3 10^3/uL (0.0-0.5); EOS % 4.5 % (0.0-3.0); HEMATOCRIT 30.1 % (42.0-52.0); HEMOGLOBIN 9.4 g/dl (13.5-17.5); LYMPH # 0.5 10^3/uL (1.5-5.0); LYMPH % 8.8 % (24.0-44.0); MEAN CORPUSCULAR HEMOGLOBIN 27.6 pg (27.0-33.0); MEAN CORPUSCULAR HGB CONC 31.2 g/dl (32.0-36.5); MEAN CORPUSCULAR VOLUME 88.5 fl (80.0-96.0); MONO # 0.5 10^3/uL (0.0-0.8); MONO % 7.8 % (2.0-8.0); NEUTROPHILS # 4.7 10^3/uL (1.5-8.5); NEUTROPHILS % 77.9 % (36.0-66.0); PLATELET COUNT, AUTOMATED 178 10^3/uL (150-450); WHITE BLOOD COUNT 6.1 10^3/uL (4.0-10.0)
[2024-04-14 05:58] LABS: CALCIUM LEVEL 8.4 MG/DL (8.3-10.6); CREATININE FOR GFR 2.59 MG/DL (0.70-1.30); GLOMERULAR FILTRATION RATE 25.2 (>35); MAGNESIUM LEVEL 2.5 MG/DL (1.8-2.4); POTASSIUM SERUM 4.8 MMOL/L (3.5-5.1)
[2024-04-14 12:00] VITALS: BP 139/64; TEMP 97.3; O2SAT 97
== END 2024-04-14 14:57 | disposition home health service (06) | DRG 291 ==
LOC: M ED 11:34 → M ED INP 11:35 → OBSVTOIN 11:35 → M MSPAV 23:50
PROVIDERS: ADMIT Student in an Organized Health Care Education/Training Program; ATTEND Student in an Organized Health Care Education/Training Program
DX: I13.0 Hypertensive heart and chronic kidney disease with heart failure and stage 1 through stage 4 chronic kidney disease, or unspecified chronic kidney disease (principal); I50.33 Acute on chronic diastolic (congestive) heart failure; J98.11 Atelectasis; N17.9 Acute kidney failure, unspecified; N18.30 Chronic kidney disease, stage 3 unspecified; E21.1 Secondary hyperparathyroidism, not elsewhere classified; Z95.1 Presence of aortocoronary bypass graft; I25.10 Atherosclerotic heart disease of native coronary artery without angina pectoris; K21.9 Gastro-esophageal reflux disease without esophagitis; B97.4 Respiratory syncytial virus as the cause of diseases classified elsewhere; E11.22 Type 2 diabetes mellitus with diabetic chronic kidney disease; E78.5 Hyperlipidemia, unspecified; M06.9 Rheumatoid arthritis, unspecified; I95.1 Orthostatic hypotension; E87.5 Hyperkalemia; Z79.82 Long term (current) use of aspirin; Z79.899 Other long term (current) drug therapy; I25.2 Old myocardial infarction; M19.90 Unspecified osteoarthritis, unspecified site; K57.90 Diverticulosis of intestine, part unspecified, without perforation or abscess without bleeding; Z66 Do not resuscitate; Z88.2 Allergy status to sulfonamides; Z88.5 Allergy status to narcotic agent; Z88.8 Allergy status to other drugs, medicaments and biological substances; E11.649 Type 2 diabetes mellitus with hypoglycemia without coma

== ENCOUNTER 2024-04-22 09:08 | Inpatient (IN) | payer MEDICARE ==
[~2024-04-22] VITALS: Ht 180.3 cm; Wt 81.3 kg
[2024-04-22] MEDS: OMEPRAZOLE 20MG CAP PO SCH (09:00)
[2024-04-22] MEDS: ASPIRIN 81MG ENTERIC TABLET PO SCH (09:00)
[2024-04-22 09:54] LABS: BASO % 0.4 % (0.0-1.0); EOS # 0.1 10^3/uL (0.0-0.5); EOS % 1.4 % (0.0-3.0); HEMATOCRIT 31.4 % (42.0-52.0); LYMPH # 0.5 10^3/uL (1.5-5.0); LYMPH % 5.4 % (24.0-44.0); MEAN CORPUSCULAR HEMOGLOBIN 28.3 pg (27.0-33.0); MEAN CORPUSCULAR HGB CONC 31.8 g/dl (32.0-36.5); MONO # 0.5 10^3/uL (0.0-0.8); MONO % 6.3 % (2.0-8.0); NEUTROPHILS # 7.3 10^3/uL (1.5-8.5); NEUTROPHILS % 86.3 % (36.0-66.0); PLATELET COUNT, AUTOMATED 254 10^3/uL (150-450); RED BLOOD COUNT 3.53 10^6/uL (4.30-6.10); WHITE BLOOD COUNT 8.4 10^3/uL (4.0-10.0)
[2024-04-22 12:01] LABS: ALBUMIN 2.9 G/DL (3.2-5.2); BILIRUBIN,DIRECT 0.2 MG/DL (<0.4); BILIRUBIN,TOTAL 0.6 MG/DL (0.3-1.2); CALCIUM LEVEL 9.1 MG/DL (8.3-10.6); CREATININE FOR GFR 2.66 MG/DL (0.70-1.30); GLOMERULAR FILTRATION RATE 24.4 (>35); POTASSIUM SERUM 5.3 MMOL/L (3.5-5.1); TOTAL PROTEIN 6.8 G/DL (5.7-8.2)
[2024-04-22] MEDS ORDERED: DEXTROSE 50% 50ML SYRINGE IV PRN (15:00)
[2024-04-22] MEDS ORDERED: GLUCAGON INJ 1MG VIAL SC PRN (15:00)
[2024-04-22] MEDS ORDERED: GLUCOSE 4 GM CHEW PO PRN (15:00)
[2024-04-22] MEDS: SOD POLYSTYRENE SULFONATE SUSP 15GM 60ML UD PO ONE (15:30)
[2024-04-22 17:04] VITALS: BP 154/82; TEMP 97.7; O2SAT 94
[2024-04-22] MEDS: INSULIN LISPRO (NovoLOG) PER UNIT SC SCH ×2 (17:30→21:06)
[2024-04-22] MEDS ORDERED: HOME MED LIST COMPLETE! XX SCH (18:00)
[2024-04-22] MEDS ORDERED: ALBU2.5V10 INH (18:00)
[2024-04-22] MEDS ORDERED: ALBUTEROL SULFATE 2.5MG/0.5ML INH NEB SOLN INH PRN (18:10)
[2024-04-22] MEDS: FUROSEMIDE 100MG/10ML VIAL IV SCH (18:13)
[2024-04-22 20:00] VITALS: BP 153/80; TEMP 97.5; O2SAT 95
[2024-04-22 20:45] VITALS: O2SAT 87
[2024-04-22 20:46] VITALS: O2SAT 93
[2024-04-22] MEDS: DOCUSATE SODIUM 100MG CAPSULE PO SCH (21:00)
[2024-04-22] MEDS: bisoproloL fumarate 5 MG TAB PO SCH (21:04)
[2024-04-22] MEDS: PRAVASTATIN 20 MG TAB PO SCH (21:04)
[2024-04-22] MEDS: HEPARIN SOD (PORCINE) 5000UNITS/ML 1ML VIAL/SYRINGE SC SCH (21:05)
[2024-04-22] MEDS: LEVEMIR (INSULIN DETEMIR) 1 UNITS/0.01ML SC SCH (21:06)
[2024-04-22] MEDS: ACETAMINOPHEN 325 MG TAB PO PRN (21:09)
[2024-04-23] VITALS (10 sets, daily range): BP systolic 109–176; BP diastolic 45–78; TEMP 97.2–98; O2SAT 92–97
[2024-04-23] MEDS: NYSTATIN 100,000 UNITS/GM TOPICAL PWD 15GM TOP SCH (01:55)
[2024-04-23 05:05] LABS: BASO % 0.7 % (0.0-1.0); EOS # 0.3 10^3/uL (0.0-0.5); EOS % 4.3 % (0.0-3.0); HEMATOCRIT 31.6 % (42.0-52.0); HEMOGLOBIN 9.9 g/dl (13.5-17.5); LYMPH # 0.5 10^3/uL (1.5-5.0); LYMPH % 8.4 % (24.0-44.0); MEAN CORPUSCULAR HEMOGLOBIN 27.9 pg (27.0-33.0); MEAN CORPUSCULAR HGB CONC 31.3 g/dl (32.0-36.5); MONO # 0.5 10^3/uL (0.0-0.8); MONO % 8.7 % (2.0-8.0); NEUTROPHILS # 4.7 10^3/uL (1.5-8.5); NEUTROPHILS % 77.7 % (36.0-66.0); PLATELET COUNT, AUTOMATED 251 10^3/uL (150-450); RED BLOOD COUNT 3.55 10^6/uL (4.30-6.10); WHITE BLOOD COUNT 6.1 10^3/uL (4.0-10.0)
[2024-04-23 05:43] LABS: CALCIUM LEVEL 8.6 MG/DL (8.3-10.6); CREATININE FOR GFR 2.61 MG/DL (0.70-1.30); GLOMERULAR FILTRATION RATE 24.9 (>35); MAGNESIUM LEVEL 2.2 MG/DL (1.8-2.4); POTASSIUM SERUM 4.7 MMOL/L (3.5-5.1)
[2024-04-23] MEDS: guaiFENesin ER TABLET 600 MG TAB PO SCH (05:51)
[2024-04-23] MEDS: D5W 500 ML IV SCH (11:11)
[2024-04-23] MEDS: VANICREAM MOISTURIZING SKIN CREAM 113GM TUBE TOP SCH (13:41)
[2024-04-23 16:44] LABS: APPEARANCE, BODY FLUID TURBID (CLEAR); PLEURAL FL COLOR RED (COLORLESS); SOURCE, BODY FLUID PLEURAL
[2024-04-23 19:36] LABS: CALCIUM LEVEL 8.4 MG/DL (8.3-10.6); CREATININE FOR GFR 2.41 MG/DL (0.70-1.30); GLOMERULAR FILTRATION RATE 27.3 (>35); POTASSIUM SERUM 4.2 MMOL/L (3.5-5.1)
[2024-04-23] MEDS: LEVEMIR (INSULIN DETEMIR) 1 UNITS/0.01ML SC SCH (20:58)
[2024-04-24 03:41] VITALS: BP 117/58; TEMP 97.4; O2SAT 92
[2024-04-24 05:22] LABS: BASO % 0.7 % (0.0-1.0); EOS # 0.3 10^3/uL (0.0-0.5); EOS % 5.2 % (0.0-3.0); HEMATOCRIT 30.6 % (42.0-52.0); HEMOGLOBIN 9.4 g/dl (13.5-17.5); LYMPH # 0.7 10^3/uL (1.5-5.0); MEAN CORPUSCULAR HEMOGLOBIN 27.6 pg (27.0-33.0); MEAN CORPUSCULAR HGB CONC 30.7 g/dl (32.0-36.5); MONO # 0.5 10^3/uL (0.0-0.8); MONO % 8.2 % (2.0-8.0); NEUTROPHILS # 4.6 10^3/uL (1.5-8.5); NEUTROPHILS % 74.6 % (36.0-66.0); PLATELET COUNT, AUTOMATED 228 10^3/uL (150-450); WHITE BLOOD COUNT 6.1 10^3/uL (4.0-10.0)
[2024-04-24 06:23] LABS: CREATININE FOR GFR 2.45 MG/DL (0.70-1.30); GLOMERULAR FILTRATION RATE 26.8 (>35); POTASSIUM SERUM 4.7 MMOL/L (3.5-5.1)
[2024-04-24 08:03] VITALS: BP 152/67; TEMP 98; O2SAT 94
[2024-04-24 12:40] VITALS: BP 172/74; TEMP 97.1; O2SAT 94
[2024-04-24 15:48] VITALS: BP 150/70; TEMP 97.4; O2SAT 94
[2024-04-24 19:38] VITALS: BP 124/58; TEMP 98.2; O2SAT 94
[2024-04-24 23:36] VITALS: BP 135/65; TEMP 98.6; O2SAT 94
[2024-04-25 03:31] VITALS: BP 133/63; TEMP 97.4; O2SAT 94
[2024-04-25 05:31] LABS: BASO % 0.4 % (0.0-1.0); EOS # 0.2 10^3/uL (0.0-0.5); EOS % 3.2 % (0.0-3.0); HEMOGLOBIN 9.1 g/dl (13.5-17.5); LYMPH # 0.7 10^3/uL (1.5-5.0); MEAN CORPUSCULAR HEMOGLOBIN 27.8 pg (27.0-33.0); MEAN CORPUSCULAR HGB CONC 31.4 g/dl (32.0-36.5); MEAN CORPUSCULAR VOLUME 88.7 fl (80.0-96.0); MONO # 0.6 10^3/uL (0.0-0.8); MONO % 8.4 % (2.0-8.0); NEUTROPHILS # 5.5 10^3/uL (1.5-8.5); NEUTROPHILS % 77.6 % (36.0-66.0); PLATELET COUNT, AUTOMATED 219 10^3/uL (150-450); RED BLOOD COUNT 3.27 10^6/uL (4.30-6.10); WHITE BLOOD COUNT 7.1 10^3/uL (4.0-10.0)
[2024-04-25 05:52] LABS: CALCIUM LEVEL 7.7 MG/DL (8.3-10.6); CREATININE FOR GFR 2.49 MG/DL (0.70-1.30); GLOMERULAR FILTRATION RATE 26.3 (>35); POTASSIUM SERUM 4.6 MMOL/L (3.5-5.1)
[2024-04-25 07:36] VITALS: BP 126/59; TEMP 98; O2SAT 95
[2024-04-25 12:08] VITALS: TEMP 98.2; O2SAT 94
[2024-04-25] MEDS: FUROSEMIDE 100MG/10ML VIAL IV ONE (12:48)
[2024-04-25 16:35] VITALS: BP 128/60; TEMP 98; O2SAT 95
[2024-04-25 20:30] VITALS: BP 143/71; TEMP 98.5; O2SAT 91
[2024-04-25 23:30] VITALS: BP 136/61; TEMP 98.1; O2SAT 94
[2024-04-26] VITALS (7 sets, daily range): BP systolic 131–159; BP diastolic 58–74; TEMP 97.5–98.2; O2SAT 90–97
[2024-04-26 09:04] LABS: BASO # 0.1 10^3/uL (0.0-0.2); BASO % 0.7 % (0.0-1.0); EOS # 0.2 10^3/uL (0.0-0.5); EOS % 3.1 % (0.0-3.0); HEMATOCRIT 33.3 % (42.0-52.0); HEMOGLOBIN 10.2 g/dl (13.5-17.5); LYMPH # 0.6 10^3/uL (1.5-5.0); LYMPH % 8.4 % (24.0-44.0); MEAN CORPUSCULAR HEMOGLOBIN 27.4 pg (27.0-33.0); MEAN CORPUSCULAR HGB CONC 30.6 g/dl (32.0-36.5); MEAN CORPUSCULAR VOLUME 89.5 fl (80.0-96.0); MONO # 0.6 10^3/uL (0.0-0.8); MONO % 7.8 % (2.0-8.0); NEUTROPHILS # 5.7 10^3/uL (1.5-8.5); NEUTROPHILS % 79.6 % (36.0-66.0); PLATELET COUNT, AUTOMATED 277 10^3/uL (150-450); RED BLOOD COUNT 3.72 10^6/uL (4.30-6.10); WHITE BLOOD COUNT 7.2 10^3/uL (4.0-10.0)
[2024-04-26 09:21] LABS: CALCIUM LEVEL 8.4 MG/DL (8.3-10.6); CREATININE FOR GFR 2.46 MG/DL (0.70-1.30); GLOMERULAR FILTRATION RATE 26.7 (>35); POTASSIUM SERUM 4.7 MMOL/L (3.5-5.1)
[2024-04-26] MEDS: FUROSEMIDE 100MG/10ML VIAL IV ONE (10:37)
[2024-04-26] MEDS: LanTUS (INSULIN GLARGINE INJ) 1 UNITS/0.01 ML SC ONE (20:14)
[2024-04-27 04:19] VITALS: BP 150/69; TEMP 97.6; O2SAT 94
[2024-04-27 07:41] VITALS: BP 160/98; TEMP 97.5; O2SAT 93
[2024-04-27 07:45] LABS: BASO % 0.6 % (0.0-1.0); EOS # 0.3 10^3/uL (0.0-0.5); EOS % 4.5 % (0.0-3.0); HEMATOCRIT 32.6 % (42.0-52.0); HEMOGLOBIN 10.1 g/dl (13.5-17.5); LYMPH # 0.7 10^3/uL (1.5-5.0); LYMPH % 10.2 % (24.0-44.0); MEAN CORPUSCULAR HEMOGLOBIN 27.2 pg (27.0-33.0); MEAN CORPUSCULAR VOLUME 87.9 fl (80.0-96.0); MONO # 0.5 10^3/uL (0.0-0.8); MONO % 6.7 % (2.0-8.0); NEUTROPHILS # 5.3 10^3/uL (1.5-8.5); NEUTROPHILS % 77.7 % (36.0-66.0); PLATELET COUNT, AUTOMATED 235 10^3/uL (150-450); RED BLOOD COUNT 3.71 10^6/uL (4.30-6.10); WHITE BLOOD COUNT 6.8 10^3/uL (4.0-10.0)
[2024-04-27 08:08] LABS: CALCIUM LEVEL 8.1 MG/DL (8.3-10.6); CREATININE FOR GFR 2.28 MG/DL (0.70-1.30); GLOMERULAR FILTRATION RATE 29.1 (>35); MAGNESIUM LEVEL 1.8 MG/DL (1.8-2.4); POTASSIUM SERUM 4.9 MMOL/L (3.5-5.1)
[2024-04-27] MEDS: LanTUS (INSULIN GLARGINE INJ) 1 UNITS/0.01 ML SC SCH (08:48)
[2024-04-27 11:47] VITALS: BP 149/71; TEMP 97.8; O2SAT 97
[2024-04-27] MEDS ORDERED: TORS20TA2 PO (14:02)
[2024-04-27] MEDS ORDERED: TORSEMIDE 20 MG TAB PO SCH (17:00)
== END 2024-04-27 16:20 | disposition home health service (06) | DRG 291 ==
LOC: M ED 09:08 → EDBD 09:08 → M ED INP 14:56 → M MSPAV 17:03 → M PCU 04-23 16:32
PROVIDERS: ADMIT Student in an Organized Health Care Education/Training Program; ATTEND Student in an Organized Health Care Education/Training Program
PROC: 0W9B3ZZ Drainage of Left Pleural Cavity, Percutaneous Approach (ICD-10-PCS; principal; 2024-04-23 15:00)
DX: I13.0 Hypertensive heart and chronic kidney disease with heart failure and stage 1 through stage 4 chronic kidney disease, or unspecified chronic kidney disease (principal); I50.33 Acute on chronic diastolic (congestive) heart failure; E87.0 Hyperosmolality and hypernatremia; J98.11 Atelectasis; N18.30 Chronic kidney disease, stage 3 unspecified; E11.42 Type 2 diabetes mellitus with diabetic polyneuropathy; E11.22 Type 2 diabetes mellitus with diabetic chronic kidney disease; Z79.4 Long term (current) use of insulin; I25.10 Atherosclerotic heart disease of native coronary artery without angina pectoris; K21.9 Gastro-esophageal reflux disease without esophagitis; R19.7 Diarrhea, unspecified; I5A Non-ischemic myocardial injury (non-traumatic); D63.1 Anemia in chronic kidney disease; Z95.1 Presence of aortocoronary bypass graft; Z88.8 Allergy status to other drugs, medicaments and biological substances; Z88.5 Allergy status to narcotic agent; Z88.2 Allergy status to sulfonamides; Z79.899 Other long term (current) drug therapy; Z79.82 Long term (current) use of aspirin; Z66 Do not resuscitate

== ENCOUNTER → 2024-05-06 | Outpatient (CLI) | payer MEDICARE ==
[~2024-05-06] MED LIST changes: +ALBU2.5V10 INH
== END ==
LOC: M EKG 13:09
PROVIDERS: ATTEND Physician Assistant
DX: I45.3 Trifascicular block (principal)

== ENCOUNTER → 2024-06-11 | Outpatient (REF) | payer MEDICARE | PROVIDERS: ATTEND Family Medicine | DX: R09.89 Other specified symptoms and signs involving the circulatory and respiratory systems (principal) ==

== ENCOUNTER → 2024-06-17 | Outpatient (REF) | payer MEDICARE | LOC: M LAB REF 17:01 | PROVIDERS: ATTEND Podiatrist | DX: L03.125 Acute lymphangitis of right lower limb (principal) ==

== ENCOUNTER → 2024-09-06 | Outpatient (REF) | payer MEDICARE ==
[~2024-09-06] MED LIST changes: +DOCU100C16 PO; +FEXO-193 PO; +FLON1SPR NARES; +HYDR25TA87 PO; +LACT20EL PO; +OLOP1SPR NARES; -PRAV40TA2 PO; +PRAV40TA85 PO; -PRAV80TA2 PO; +PRAV80TA75 PO; +SENO8.6T10 PO; +TAMS-18 PO; +VELT1POW PO
[2024-09-06 10:39] LABS: PLATELET COUNT, AUTOMATED 270 10^3/uL (150-450)
[2024-09-06 10:56] LABS: C REACTIVE PROTEIN QUANTITATIV 4.16 MG/DL (<1.0); CALCIUM LEVEL 9.6 MG/DL (8.3-10.6); CARBON DIOXIDE LEVEL 26.0 MMOL/L (20-31); CHLORIDE LEVEL 97.0 MMOL/L (98-107); CREATININE FOR GFR 2.64 MG/DL (0.70-1.30); GLOMERULAR FILTRATION RATE 22.7 (>35); POTASSIUM SERUM 3.5 MMOL/L (3.5-5.1); SODIUM LEVEL 139.0 MMOL/L (136-145)
== END ==
PROVIDERS: ATTEND Physician Assistant
DX: J90 Pleural effusion, not elsewhere classified (principal)

== ENCOUNTER → 2024-09-06 | Outpatient (REF) | PROVIDERS: ATTEND Nurse Practitioner Family | DX: E11.621 Type 2 diabetes mellitus with foot ulcer (principal) ==

== ENCOUNTER → 2024-09-07 | Outpatient (REF) | PROVIDERS: ATTEND Physician Assistant | DX: I51.7 Cardiomegaly (principal); J18.9 Pneumonia, unspecified organism ==

== ENCOUNTER → 2024-09-20 | Outpatient (REF) | PROVIDERS: ATTEND Internal Medicine | DX: I10 Essential (primary) hypertension (principal) ==

== ENCOUNTER → 2024-10-18 | Outpatient (REF) | payer MEDICARE | LOC: M LAB REF 17:22 | PROVIDERS: ATTEND Podiatrist | DX: L03.119 Cellulitis of unspecified part of limb (principal) ==

== ENCOUNTER → 2024-11-22 | Outpatient (CLI) | payer MEDICARE | LOC: M PLAIMG 10:20 | PROVIDERS: ATTEND Physician Assistant | DX: J90 Pleural effusion, not elsewhere classified (principal) ==

== ENCOUNTER → 2024-11-22 | Outpatient (REF) | payer MEDICARE ==
[2024-11-23 15:13] LABS: APPEARANCE, URINE CLEAR (CLEAR); BACTERIA, URINE AUTO NEGATIVE (NEGATIVE); BILIRUBIN, URINE AUTO NEGATIVE (NEGATIVE); BLOOD, URINE BLOOD NEGATIVE (NEGATIVE); GLUCOSE, URINE (UA) AUTO 1+ mg/dL (NEGATIVE); KETONE, URINE AUTO NEGATIVE (NEGATIVE); LEUKOCYTE ESTERASE, URINE AUTO NEGATIVE (NEGATIVE); NITRITE, URINE AUTO NEGATIVE (NEGATIVE); PROTEIN, URINE AUTO 2+ mg/dL (NEGATIVE); RBC, URINE AUTO 1 /HPF (0-3); SPECIFIC GRAVITY URINE AUTO 1.009 (1.002-1.035); SQUAMOUS EPITHELIAL CELL UR AU 0 /HPF (0-6); UROBILINOGEN, URINE AUTO 0.2 mg/dL (0.0-2.0); WBC, URINE AUTO 2 /HPF (0-3)
[2024-11-23 15:42] LABS: TOTAL PROTEIN,RANDOM URINE 104.7 MG/DL (0.0-14.0)
== END ==
PROVIDERS: ATTEND Internal Medicine Nephrology
DX: E11.21 Type 2 diabetes mellitus with diabetic nephropathy (principal)

== ENCOUNTER → 2024-11-24 | Outpatient (REF) | payer MEDICARE ==
[2024-11-24 13:32] LABS: BASO # 0.0 10^3/uL (0.0-0.2); BASO % 0.4 % (0.0-1.0); EOS # 0.1 10^3/uL (0.0-0.5); EOS % 0.7 % (0.0-3.0); LYMPH # 0.5 10^3/uL (1.5-5.0); LYMPH % 4.9 % (24.0-44.0); MONO # 0.7 10^3/uL (0.0-0.8); MONO % 6.8 % (2.0-8.0); NEUTROPHILS # 9.5 10^3/uL (1.5-8.5); NEUTROPHILS % 86.7 % (36.0-66.0); PLATELET COUNT, AUTOMATED 351 10^3/uL (150-450)
[2024-11-24 13:58] LABS: CALCIUM LEVEL 8.7 MG/DL (8.3-10.6); CARBON DIOXIDE LEVEL 29.0 MMOL/L (20-31); CHLORIDE LEVEL 92.0 MMOL/L (98-107); CREATININE FOR GFR 2.2 MG/DL (0.70-1.30); GLOMERULAR FILTRATION RATE 28.3 (>35); MAGNESIUM LEVEL 2.2 MG/DL (1.8-2.4); PHOSPHORUS LEVEL 3.2 MG/DL (2.4-5.1); POTASSIUM SERUM 4.4 MMOL/L (3.5-5.1); SODIUM LEVEL 127.0 MMOL/L (136-145)
== END ==
PROVIDERS: ATTEND Internal Medicine Nephrology
DX: N18.4 Chronic kidney disease, stage 4 (severe) (principal); D63.1 Anemia in chronic kidney disease; E79.0 Hyperuricemia without signs of inflammatory arthritis and tophaceous disease

== ENCOUNTER → 2024-11-24 | Outpatient (CLI) | payer MEDICARE | LOC: M RAD 09:22 | PROVIDERS: ATTEND Podiatrist | DX: I70.223 Atherosclerosis of native arteries of extremities with rest pain, bilateral legs (principal) ==

== ENCOUNTER 2024-12-01 10:14 | Emergency (ER) | payer MEDICARE ==
[~2024-12-01] VITALS: Ht 167.6 cm; Wt 77.0 kg
[2024-12-01 11:24] LABS: BASO # 0.0 10^3/uL (0.0-0.2); BASO % 0.2 % (0.0-1.0); EOS # 0.1 10^3/uL (0.0-0.5); EOS % 0.5 % (0.0-3.0); LYMPH # 0.3 10^3/uL (1.5-5.0); LYMPH % 2.9 % (24.0-44.0); MONO # 0.6 10^3/uL (0.0-0.8); MONO % 5.3 % (2.0-8.0); NEUTROPHILS # 10.3 10^3/uL (1.5-8.5); NEUTROPHILS % 90.5 % (36.0-66.0); PLATELET COUNT, AUTOMATED 342 10^3/uL (150-450)
[2024-12-01] MEDS: VANCOMYCIN HCL 1,500 MG, VIAL MATE ADAPTER 1 EACH in NS 500 ML IV ONE (11:27)
[2024-12-01 11:31] LABS: INR 1.14
[2024-12-01 11:36] LABS: ERYTHROCYTE SEDIMENTATION RATE > 130 mm/hr (0-20)
[2024-12-01 11:48] LABS: ALT/SGPT 157.0 U/L (7.0-40); AST/SGOT 235.0 U/L (<34); CALCIUM LEVEL 8.5 MG/DL (8.3-10.6); CARBON DIOXIDE LEVEL 23.0 MMOL/L (20-31); CHLORIDE LEVEL 93.0 MMOL/L (98-107); CREATININE FOR GFR 3.95 MG/DL (0.70-1.30); GLOMERULAR FILTRATION RATE 14.0 (>35); POTASSIUM SERUM 5.5 MMOL/L (3.5-5.1); SODIUM LEVEL 128.0 MMOL/L (136-145)
[2024-12-01] MEDS ORDERED: SOD POLYSTYRENE SULFONATE SUSP 15GM 60ML UD PO ONE (12:15)
[2024-12-01 12:30] LABS: C REACTIVE PROTEIN QUANTITATIV 19.67 MG/DL (<1.0)
[2024-12-01] MEDS: PATIROMER SORBITEX CALCIUM 8.4GM POWDER PACKET PO ONE (12:33)
[2024-12-01 12:47] VITALS: TEMP 96.4
[2024-12-01 13:30] VITALS: BP 145/67; O2SAT 94
== END 2024-12-01 13:59 | disposition short-term general hospital (02) ==
LOC: M ED 10:14
DX: L97.529 Non-pressure chronic ulcer of other part of left foot with unspecified severity (principal); L03.116 Cellulitis of left lower limb; I73.9 Peripheral vascular disease, unspecified; I45.10 Unspecified right bundle-branch block; I44.0 Atrioventricular block, first degree; I44.4 Left anterior fascicular block; I25.2 Old myocardial infarction; E78.5 Hyperlipidemia, unspecified; E11.9 Type 2 diabetes mellitus without complications; I10 Essential (primary) hypertension; Z86.79 Personal history of other diseases of the circulatory system; Z86.718 Personal history of other venous thrombosis and embolism; Z88.2 Allergy status to sulfonamides; Z88.5 Allergy status to narcotic agent; Z88.8 Allergy status to other drugs, medicaments and biological substances; Z79.52 Long term (current) use of systemic steroids; Z79.82 Long term (current) use of aspirin; Z79.4 Long term (current) use of insulin; Z79.899 Other long term (current) drug therapy
CPT/HCPCS: 80048; 80076; 83605; 84132; 84145; 85025; 85610; 85652; 86140; 87040; 93005; 96365; 96366; 99285; J3373

== ENCOUNTER → 2024-12-24 | Outpatient (CLI) | payer MEDICARE ==
[2024-12-24 13:27] LABS: BASO # 0.1 10^3/uL (0.0-0.2); BASO % 0.8 % (0.0-1.0); EOS # 0.1 10^3/uL (0.0-0.5); EOS % 1.6 % (0.0-3.0); LYMPH # 0.4 10^3/uL (1.5-5.0); LYMPH % 6.5 % (24.0-44.0); MONO # 0.6 10^3/uL (0.0-0.8); MONO % 9.0 % (2.0-8.0); NEUTROPHILS # 5.0 10^3/uL (1.5-8.5); NEUTROPHILS % 81.8 % (36.0-66.0); PLATELET COUNT, AUTOMATED 260 10^3/uL (150-450)
[2024-12-24 13:54] LABS: CALCIUM LEVEL 8.0 MG/DL (8.3-10.6); CARBON DIOXIDE LEVEL 27.0 MMOL/L (20-31); CHLORIDE LEVEL 94.0 MMOL/L (98-107); CREATININE FOR GFR 2.56 MG/DL (0.70-1.30); GLOMERULAR FILTRATION RATE 23.6 (>35); POTASSIUM SERUM 4.2 MMOL/L (3.5-5.1); SODIUM LEVEL 135.0 MMOL/L (136-145)
== END ==
LOC: M RAD 12:39
PROVIDERS: ATTEND Internal Medicine
DX: R06.02 Shortness of breath (principal); R09.02 Hypoxemia; I51.7 Cardiomegaly; Z95.828 Presence of other vascular implants and grafts; J90 Pleural effusion, not elsewhere classified

== ENCOUNTER → 2024-12-24 | Outpatient (REF) | PROVIDERS: ATTEND Physician Assistant | DX: R06.02 Shortness of breath (principal) ==

== ENCOUNTER → 2024-12-27 | Outpatient (REF) | payer MEDICARE ==
[2024-12-27 11:02] LABS: PLATELET COUNT, AUTOMATED 258 10^3/uL (150-450)
[2024-12-27 11:21] LABS: CALCIUM LEVEL 8.1 MG/DL (8.3-10.6); CARBON DIOXIDE LEVEL 31.0 MMOL/L (20-31); CHLORIDE LEVEL 92.0 MMOL/L (98-107); CREATININE FOR GFR 3.39 MG/DL (0.70-1.30); GLOMERULAR FILTRATION RATE 16.8 (>35); POTASSIUM SERUM 4.2 MMOL/L (3.5-5.1); SODIUM LEVEL 132.0 MMOL/L (136-145)
== END ==
PROVIDERS: ATTEND Physician Assistant
DX: N18.6 End stage renal disease (principal)

== ENCOUNTER → 2024-12-29 | Outpatient (REF) | payer MEDICARE ==
[2024-12-29 11:31] LABS: PLATELET COUNT, AUTOMATED 222 10^3/uL (150-450)
[2024-12-29 11:58] LABS: CALCIUM LEVEL 8.2 MG/DL (8.3-10.6); CARBON DIOXIDE LEVEL 32.0 MMOL/L (20-31); CHLORIDE LEVEL 93.0 MMOL/L (98-107); CREATININE FOR GFR 2.76 MG/DL (0.70-1.30); GLOMERULAR FILTRATION RATE 21.5 (>35); POTASSIUM SERUM 3.9 MMOL/L (3.5-5.1); SODIUM LEVEL 136.0 MMOL/L (136-145)
== END ==
PROVIDERS: ATTEND Physician Assistant
DX: U07.1 COVID-19 (principal)

== ENCOUNTER → 2024-12-31 | Outpatient (REF) | payer SELFPAY ==
[2024-12-31 09:17] LABS: PLATELET COUNT, AUTOMATED 206 10^3/uL (150-450)
[2024-12-31 09:48] LABS: ALT/SGPT 21.0 U/L (7.0-40); AST/SGOT 38.0 U/L (<34); CALCIUM LEVEL 8.4 MG/DL (8.3-10.6); CARBON DIOXIDE LEVEL 30.0 MMOL/L (20-31); CHLORIDE LEVEL 96.0 MMOL/L (98-107); CREATININE FOR GFR 2.55 MG/DL (0.70-1.30); GLOMERULAR FILTRATION RATE 23.7 (>35); POTASSIUM SERUM 4.1 MMOL/L (3.5-5.1); SODIUM LEVEL 137.0 MMOL/L (136-145)
== END ==
PROVIDERS: ATTEND Physician Assistant
DX: N18.6 End stage renal disease (principal)

== ENCOUNTER → 2025-01-03 | Outpatient (REF) | payer MEDICARE ==
[2025-01-03 12:24] LABS: PLATELET COUNT, AUTOMATED 196 10^3/uL (150-450)
[2025-01-03 13:09] LABS: CALCIUM LEVEL 8.3 MG/DL (8.3-10.6); CARBON DIOXIDE LEVEL 32.0 MMOL/L (20-31); CHLORIDE LEVEL 91.0 MMOL/L (98-107); CREATININE FOR GFR 3.45 MG/DL (0.70-1.30); GLOMERULAR FILTRATION RATE 16.5 (>35); POTASSIUM SERUM 4.0 MMOL/L (3.5-5.1); SODIUM LEVEL 133.0 MMOL/L (136-145)
== END ==
PROVIDERS: ATTEND Physician Assistant
DX: N18.6 End stage renal disease (principal)

== ENCOUNTER → 2025-01-07 | Outpatient (REF) | payer MEDICARE ==
[2025-01-07 17:10] LABS: PLATELET COUNT, AUTOMATED 213 10^3/uL (150-450)
== END ==
PROVIDERS: ATTEND Physician Assistant
DX: N18.6 End stage renal disease (principal)

== ENCOUNTER → 2025-01-10 | Outpatient (REF) | PROVIDERS: ATTEND Physician Assistant | DX: N18.6 End stage renal disease (principal) ==

== ENCOUNTER → 2025-01-11 | Outpatient (REF) | PROVIDERS: ATTEND Physician Assistant | DX: N18.6 End stage renal disease (principal) ==

== ENCOUNTER → 2025-01-11 | Outpatient (REF) | PROVIDERS: ATTEND Physician Assistant | DX: N18.6 End stage renal disease (principal) ==

== ENCOUNTER → 2025-01-11 | Outpatient (REF) | PROVIDERS: ATTEND Physician Assistant | DX: N18.6 End stage renal disease (principal) ==